=== PATIENT | female | born 1960 | race Caucasian/White ===

== ENCOUNTER 2019-08-24 21:39 | Inpatient (IN) | payer OTHER, SELFPAY ==
--- NOTE | ~2019-08-24 | XR_ITS ---
EXAMINATION: XR chest 2V 08/24/2019 22:38 INDICATION: Cough and shortness of breath PROCEDURE: 2 view chest COMPARISON: 01/16/2015 FINDINGS: The lungs are clear. The cardiomediastinal silhouette is within normal limits. There are no pleural effusions. There is no pneumothorax suspected. IMPRESSION: 1: NO ACUTE CARDIOPULMONARY DISEASE. Reviewed, dictated and finalized at location A. RITY CONSULTANT
--- NOTE | ~2019-08-24 | CT_ITS ---
EXAMINATION: CTA chest PE protocol DATE: 08/25/2019 16:01 GOVERNMENT CONTRACTS MANAGER INDICATION: Shortness of breath and tachycardia TECHNIQUE: Computed tomographic angiography (CTA) of the chest was performed with 100 mL Omnipaque-35 0 intravenous contrast. The dose-length product was 378.46 mGy-cm. Maximum intensity projection 3D-re constructions of the aorta and other arteries were constructed by the technologist on a separate work station. Automated exposure control and iterative reconstruction technique were employed. COMPARISON: None. FINDINGS: Study is technically adequate without evidence for pulmonary embolism. No significant pleur al or pericardial effusion. No thoracic lymphadenopathy. Heart size is normal. There is atheroscleros is of the aorta without evidence for aneurysm or dissection. No thoracic lymphadenopathy. Fatty infil tration of the liver. Calcified granulomas of the spleen. Moderate-severe emphysema. No endobronchial lesions. No focal airspace consolidation. No pneumothorax . 4 mm left lower lobe nodule with surrounding groundglass opacification, likely benign. IMPRESSION: 1. No evidence for pulmonary embolism. No acute cardiopulmonary disease. 2: 4 mm left lower lobe nodule with adjacent groundglass opacification, likely benign. Follow-up CT i n 12 months recommended. 3: Moderate-severe emphysema. Reviewed, dictated and finalized at location A. RNMENT CONTRACTS MANAGER IMPRESSION: 1. No evidence for pulmonary embolism. No acute cardiopulmonary disease. 2: 4 mm left lower lobe nodule with adjacent groundglass opacification, likely benign. Follow-up CT in 12 months recommended. 3: Moderate-severe emphysema.
[2019-08-24 21:44] VITALS: BP 214/118; PULSE 123; RESP 22; TEMP 36.6; O2SAT 96
--- NOTE | 2019-08-24 21:44 | ED.SOB ---
HPI - SOB/Dyspnea General Chief Complaint: Shortness of Breath/Dyspnea Stated Complaint: SOB Time Seen by Provider: 08/24/19 21:43 Source: patient Mode of arrival: ambulatory Limitations: no limitations History of Present Illness HPI Narrative: The pt is a 59 y/o female who presents to the ED c/o SOB onset this morning. Pt states that she has been experiencing some flu-like symptoms, and she went to urgent care the other day. Pt states that she was prescribed Tamiflu, Azithromycin, and Prednisone. Pt states that she started taking the Prednisone one day ago, and thinks she may be having an allergic reaction to that. Pt states that she has been experiencing cough and rhinorrhea. Pt denies fever and CP. Pt notes that she does not take blood thinners. She also denies recent travel. Pt notes that she takes medication for HLD. MD elicited complaint: shortness of breath Pertinent past history: COPD and asthma Context: recent illness (Prescribed Prednisone at urgent care for flu-like symptoms) Known history of: COPD and asthma Associated symptoms: cough and other (Rhinorrhea) Related Data Home Medications Medication Instructions Recorded Confirmed fluticasone furoate 200 1 inhalation INHALATION DAILY 07/12/19 mcg-vilanterol 25 mcg/dose inhalation powder lovastatin 20 mg tablet 40 mg PO QPM tablet 07/12/19 Allergies Allergy/AdvReac Type Severity Reaction Status Date / Time Cephalosporins Allergy Severe RED, Unverified 08/24/19 23:15 FLUSHED, BURNING SKIN Penicillins Allergy Unknown Unknown Verified 08/24/19 22:59 Sulfa (Sulfonamide Allergy Unknown Unknown Verified 08/24/19 22:59 Antibiotics) Review of Systems Review of Systems: All systems reviewed & are unremarkable except as noted in HPI and below Constitutional: Constitutional: Denies fever(s) ENT: Reports nasal discharge (Rhinorrhea) Cardiovascular: Cardiovascular: Denies chest pain Respiratory: Respiratory: Reports cough and Reports dyspnea PMFSH Past Medical History Medical History (Updated 08/24/19 @ 23:31 by Forrest Rogers MD) Asthma Bronchitis COPD (chronic obstructive pulmonary disease) GERD (gastroesophageal reflux disease) HLD (hyperlipidemia) UTI (urinary tract infection) Surgical History Surgical History (Updated 08/24/19 @ 21:53 by Smooth Choi) H/O dilation and curettage H/O tubal ligation H/O: hysterectomy Hx of tonsillectomy Family History Family History (Updated 03/15/17 @ 14:18 by DOCTOR UNKNOWN) Other Family history of coronary artery disease Family history of type 2 diabetes mellitus Hypertension Social History Social History Smoking status: Former smoker Second hand tobacco smoke exposure: No Smoking end date: 07/04/14 Alcohol intake: current Comments PCP: Dr. Cleary Exam Const: General: cooperative, healthy appearing, comfortable, well developed, alert, awake and in distress mild; No confusion Orientation/consciousness: oriented to person, oriented to place, oriented to time, patient oriented x3 and No confusion Limitations: no limitations Resp: Effort & Inspection: respiratory distress (Mild) Auscultation: rhonchi throughout and wheezes throughout Cardio: Rate: tachycardic Rhythm: regular rhythm GI: Inspection: normal to inspection GI Palp: No abdominal tenderness, Yes Soft to palpation, No Tenderness to palpation present (GI), No Guarding due to palpation present (GI), No Rigid due to palpation and No Rebound tenderness present Auscultation: normal bowel sounds Skin: General skin exam: normal color, no rashes or lesions noted, elasticity normal and turgor normal Neuro: General: oriented to person, oriented to place, oriented to time, patient oriented x3, moves all extremities, no focal motor deficits and No confusion Speech: No Abnormal speech present Sensory Exam: No Sensory deficit (Neuro) Extrem: General: normal to inspection, full ROM and capi
--- NOTE | 2019-08-24 21:56 | ECG_ITS ---
Measurements Intervals [place] Rate: 49 P: 68 [place]: 165 QRS: 35 QRSD: 109 T: 63 QT: 345 QTc: 314 Interpretive Statements SINUS RHYTHM POSSIBLE LEFT ATRIAL ENLARGEMENT BASELINE ARTIFACT- I, III, AVL BORDERLINE ECG Electronically Signed On 08-25-2019 8:38:45 REAL ESTATE MANAGER by Héctor Kelly D.O.
[2019-08-24] MEDS: methylPREDNISolone SOD SUCC 125 MG VIAL IV PUSH (22:04)
[2019-08-24 22:12] LABS: Basophils Percent Auto 0.1 % (0.2-1.2); Hemoglobin 13.8 g/dL (12.0-15.0); Immature Granulocyte Absolute 0.12 K/mm3 (0.00-0.031); Immature Granulocyte Percent A 1.3 % (0-0.5); Lymphocytes Absolute Auto 2.67 K/mm3 (0.9-3.2); Mean Corpuscular HGB Conc 31.4 g/dl (32-36); Mean Corpuscular Hemoglobin 29.4 pg (26-34); Mean Corpuscular Volume 93.6 fl (80-100); Mean Platelet Volume 10.9 fl (7.4-10.4); Monocytes Absolute Auto 0.6 K/mm3 (0.1-0.6); Monocytes Percent Auto 6.1 % (2.6-8.5); Neutrophils Absolute Auto 6.2 K/mm3 (1.3-6.7); Neutrophils Percent Auto 64.5 % (45.5-73.1); Platelet Count Result 209 k/mm3 (150-375); Red Cell Distribution Width 13.2 % (11.5-14.5); White Blood Count 9.6 K/mm3 (4.5-10.0)
[2019-08-24] MEDS: ALBUTEROL SULFATE NEB 2.5 MG/0.5 ML INH 5 MG INHALATION (22:12)
[2019-08-24] MEDS: IPRATROPIUM BR 0.02% INH SOLN 0.5 MG/2.5 ML VIAL INHALATION ×2 (22:12→23:28)
[2019-08-24 22:13] VITALS: PULSE 98; RESP 22
[2019-08-24 22:25] LABS: Carboxyhemoglobin 0.6 % THb (0-2.0); Fractional Inspired Oxygen 21 %; HCO3 ABG 25.1 mEq/l (22.0-26.0); Modified Allen's Test Pass; Oxygen Content ABG 18.7 %vol (16.0-22.0); Oxygen Saturation ABG 95.7 % (95.0-100.0); Oxyhemoglobin 94.8 % THb (90.0-100.0); PCO2 ABG 38.5 mmHg (35.0-45.0); PO2 ABG 76.6 mmHg (80.0-100.0); PO2 FiO2 Ratio Arterial Blood 3.65 %; Reduced Hemoglobin 4.6 %THb (0-5.0); Site Drawn RIGHT RADIAL; pH ABG 7.432 (7.350-7.450)
[2019-08-24 22:26] LABS: Device ROOM AIR
[2019-08-24 22:26] LABS: Blood Urea Nitrogen 26 mg/dL (7-17); Calcium 9.1 mg/dL (8.4-10.2); Carbon Dioxide 26 mmol/L (22-30); Chloride 103 mmol/L (98-107); Estimated Glomerular Filt Rate > 60; Glucose 109 mg/dL (65-105); Potassium 4.3 mmol/L (3.4-5.0); Sodium 140 mmol/L (137-145)
[2019-08-24 22:31] VITALS: BP 164/99; PULSE 106; RESP 20; O2SAT 100
[2019-08-24 22:36] LABS: Troponin I < 0.012 ng/mL (0.000-0.034)
[2019-08-24 23:20] VITALS: PULSE 92; RESP 14
[2019-08-24] MEDS: ALBUTEROL SULFATE NEB 2.5 MG/0.5 ML INH INHALATION (23:27)
[2019-08-24 23:35] VITALS: PULSE 94; RESP 16
[2019-08-25] VITALS (20 sets, daily range): BP systolic 141–184; BP diastolic 72–90; PULSE 88–132; RESP 18–26; TEMP 36.4–36.9; O2SAT 80–100; BMI 28.3
--- NOTE | 2019-08-25 00:44 | ADMGEN ---
This patient, Mariely Mccullough, was admitted to [facility] S[facility] Room 301-01. Patient/family oriented to hospital policies and general routines including ID bracelet, bed and alarms, visiting hours, pain management, procedures, bathroom and other care routines, personal items, smoking policy, room service/diet, and visiting hours. Valuables list has been completed. Information on how to activate the Rapid Response Team has been discussed. Patient/Family are encouraged to report perceived risks to care and to ask questions if they do not understand what they are told or what they should do.
[2019-08-25] MEDS: LACTATED RINGERS 1,000 ML 125 ML IV CONT (01:26)
[2019-08-25] MEDS: ALBUTEROL SULFATE NEB 2.5 MG/0.5 ML INH 5 MG INHALATION (02:16)
[2019-08-25] MEDS: IPRATROPIUM BR 0.02% INH SOLN 0.5 MG/2.5 ML VIAL INHALATION ×3 (02:16→20:47)
[2019-08-25] MEDS: methylPREDNISolone SOD SUCC 125 MG VIAL 60 MG IV PUSH ×3 (05:42→21:25)
--- NOTE | 2019-08-25 05:57 | PM.IMHP ---
H&P: HPI History of Present Illness Chief complaint: Shortness of breath Narrative: Date and time of patient contact 08/25/2019 at 5:15 a.m. Mariely Mccullough is a 59 year old female with a past medical history of anxiety, asthma and bronchitis who presented to the ER with increasing shortness of breath. Patient began having symptoms on Tuesday (4 days ago). She is having a nonproductive cough, increased shortness of breath and nasal congestion/rhinorrhea. She went to urgent care on the and received a prescription for prednisone 60 mg daily, azithromycin and Tamiflu. She had a flu swab performed at urgent care which was negative for influenza and had a repeat flu swab here that was also negative. She reports significant postnasal drip with a sore throat. Cough is for the most part nonproductive. She was taking her medications as prescribed but developed increased shortness of breath just prior to coming to the ER. She was afraid that she may have had an allergic reaction to the prednisone that she received at urgent care. She reported that her rescue inhaler actually burned her throat. It did not seem to be helping her shortness of breath. Her shortness breath was significantly improved after she received nebulizer treatments and IV steroids in the ER. On the patient arrived to the ER she is markedly hypertensive and anxious. Her blood pressures on arrival were 214/118 but did improved to 164/89 prior to arriving on the medical floor. She denies a history of hypertension. Her reports that the patient has been under increased social stressors. The patient is currently working 6-7 days a week and is trying to care for her elderly mother. She also helps baby-sits her grandson 3 days a week. She was started on hydroxyzine by her primary care physician due to anxiety but the patient does not like to take the medication is she feels it makes her sleep all the time. She denies any nausea or vomiting. She has not had any orthopnea, lower extremity swelling, chest pain or palpitations. She denies any arthralgias, myalgias, fevers or chills. She reports that she has been told she has asthma/bronchitis prior primary care physician but she has never had any pulmonary function testing. The patient is a former smoker and smoked about a pack of cigarettes per day for 37 years prior to quitting. She does have shortness of breath pretty much on a daily basis. She usually uses her rescue inhaler anywhere from once every couple of days to once a week. 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 Source of information: The patient and her her bedside. Review of Systems Review of Systems: Narrative: Except as documented in the HPI, all other systems were reviewed and are negative. [facility], LAT[facility] Past Medical History Medical History (Updated 08/25/19 @ 06:25 by Pat Hummel DO) Asthma Bronchitis COPD (chronic obstructive pulmonary disease) GERD (gastroesophageal reflux disease) HLD (hyperlipidemia) UTI (urinary tract infection) Surgical History Surgical History (Updated 08/24/19 @ 21:53 by Smooth Choi) H/O dilation and curettage H/O tubal ligation H/O: hysterectomy Hx of tonsillectomy Family History Family History (Updated 08/25/19 @ 06:12 by Pat Hummel DO) Sibling Coronary artery disease Sibling Hypertension Diabetes mellitus Her sister is in a mcc and has had limb amputation and other complications of diabetes. Father Hypertension Mother No problems noted. Social History Social History (Updated 08/25/19 @ 06:24 by Pat Hummel DO) Social History: Primary care physician: Dr. Deborah Cleary Code status: Full code Smoking packs per day: 1 Smoking cigarettes per day: 20.0 Years smoked: 37 Smoking pack-years: 37.00 Smoking status: Former smoker Tobacco type: cigarettes Second
--- NOTE | 2019-08-25 08:22 | ECG_ITS ---
Measurements Intervals [place] Rate: 105 P: 66 [place]: 164 QRS: 79 QRSD: 104 T: 53 QT: 332 QTc: 440 Interpretive Statements SINUS TACHYCARDIA BASELINE ARTIFACT- I, II, III, AVF, V4 ABNORMAL ECG Electronically Signed On 08-25-2019 8:40:07 BUDGET CONSULTANT by Héctor Kelly D.O.
--- NOTE | 2019-08-25 08:54 | PM.IMPN ---
Progress Note: A&P Assessment and Plan (1) Acute exacerbation of chronic obstructive airways disease: Code(s): J44.1 - Chronic obstructive pulmonary disease with (acute) exacerbation Status: Acute Assessment and Plan: Patient with a 37 pack per year smoking history but has not been diagnosed with COPD. Currently on Tamiflu but influenza swabs were negative here. She has distant BS but no wheezing. Symptoms worsen with exertion. Probably COPD exacerbation but will consider the etiology such as veno thromboembolic disease. Check CTA of the chest. Also check echocardiogram. Continue Solu-Medrol. Will continue nebulizer treatments for change to Xopenex. (2) Acute upper respiratory infection: Code(s): J06.9 - Acute upper respiratory infection, unspecified Status: Acute Assessment and Plan: Likely viral in nature. Continue supportive care. (3) Elevated blood-pressure reading without diagnosis of hypertension: Code(s): R03.0 - Elevated blood-pressure reading, without diagnosis of hypertension Status: Acute Assessment and Plan: Blood pressure 214/118 on admission in a patient who has not been diagnosed with hypertension. Hydralazine IV available as needed but has not received any medication for her blood pressure. Blood pressure has improved to 141/75. Will hold on antihypertensive medications and continue to monitor for now. (4) Anxiety: Code(s): F41.9 - Anxiety disorder, unspecified Status: Acute Assessment and Plan: Patient would benefit from an SSRI to help treat her anxiety. She was on a medication in the past but made her to somnolent. She does not recall the name of the medication. Will order Xanax as needed. (5) Sinus tachycardia: Code(s): R00.0 - Tachycardia, unspecified Status: Acute Assessment and Plan: Called due to heart rate of 140s with exertion. EKG showing sinus tachycardia. Telemetry reviewed and again showing sinus tachycardia but no evidence of dysrhythmias. CTA ordered. TSH normal in May. Continue tele Subjective Date/time seen: 08/25/19 08:54 Interval history: 59yo female here for COPD exacerbation. Assuming care. Chart reviewed. His case discussed with automated manufacturing instructor. Called the room because patient was recently short of breath after walking to the bathroom. This is being progressively worsening prior to admission. She feels ?scared? due to the shortness of breath. No chest pain. She denies any cough or wheezing today. Says her breathing overall is better. She was wheezing yesterday. No calf pain but does have MARIN horses in the calves that seemed to have worsened over the past month. Exam Narrative: Exam Narrative: 132 141/75 Gen -no acute respiratory distress sitting up in bed ordering her breakfast Chest -distant breath sounds. Wheezing. No conversational dyspnea. CV -tachycardic but regular. Distant heart sounds. No obvious murmurs. Tele showing sinus tachycardia Abd -soft. Nontender. Nondistended. Positive bowel sounds. Ext -trace edema. Neuro - Alert and oriented, speech is clear, no facial asymmetry Psych -anxious appearing at times. Becomes more distressed when discussing recent stressors in her life. Objective Data Vital Signs Vital Signs: Vital Signs - 24 hr 08/24/19 21:44 08/24/19 22:13 08/24/19 22:31 Temperature 97.9 F Pulse Rate 123 H 98 106 H Respiratory Rate 22 H 22 H 20 Blood Pressure 214/118 H 164/99 H Pulse Oximetry 96 100 08/24/19 23:20 08/24/19 23:35 08/25/19 00:25 Temperature Pulse Rate 92 94 88 Respiratory Rate 14 16 20 Blood Pressure 164/89 H Pulse Oximetry 99 08/25/19 00:30 08/25/19 02:16 08/25/19 02:27 Temperature 98.2 F Pulse Rate 91 89 92 Respiratory Rate 18 20 20 Blood Pressure 184/84 H Pulse Oximetry 94 08/25/19 04:00 08/25/19 06:00 08/25/19 07:54 Temperature 98.1 F Pulse Rate 113 H 103 H 10
[2019-08-25] MEDS: ENOXAPARIN 40 MG/0.4 ML SYRINGE SUB-Q (09:31)
[2019-08-25] MEDS: PANTOPRAZOLE SOD SESQUIHYDRATE 20 MG TAB PO (09:32)
[2019-08-25] MEDS: LORAZEPAM INJ 2 MG/ML VIAL 0.5 MG IV PUSH (11:16)
[2019-08-25] MEDS: LOVASTATIN 20 MG TABLET 40 MG PO ×2 (16:32→16:38)
[2019-08-26] VITALS (17 sets, daily range): BP systolic 139–154; BP diastolic 74–78; PULSE 88–133; RESP 18–26; TEMP 36.6–37.1; O2SAT 91–95
[2019-08-26] MEDS: IPRATROPIUM BR 0.02% INH SOLN 0.5 MG/2.5 ML VIAL INHALATION ×4 (03:15→19:41)
[2019-08-26 06:09] LABS: Hematocrit 39.3 % (37.0-47.0); Hemoglobin 12.7 g/dL (12.0-15.0); Mean Corpuscular HGB Conc 32.3 g/dl (32-36); Mean Corpuscular Hemoglobin 29.7 pg (26-34); Mean Platelet Volume 10.9 fl (7.4-10.4); Platelet Count Result 194 k/mm3 (150-375); Red Blood Count 4.27 M/mm3 (4.2-5.4); Red Cell Distribution Width 13.5 % (11.5-14.5); White Blood Count 13.1 K/mm3 (4.5-10.0)
[2019-08-26 06:24] LABS: Blood Urea Nitrogen 27 mg/dL (7-17); Calcium 8.8 mg/dL (8.4-10.2); Carbon Dioxide 27 mmol/L (22-30); Chloride 101 mmol/L (98-107); Estimated CRCL calculation 77 ml/min; Estimated Glomerular Filt Rate > 60; Glucose 157 mg/dL (65-105); Potassium 4.1 mmol/L (3.4-5.0); Sodium 137 mmol/L (137-145)
[2019-08-26] MEDS: methylPREDNISolone SOD SUCC 125 MG VIAL 60 MG IV PUSH ×2 (07:12→14:37)
--- NOTE | 2019-08-26 08:25 | PM.IMPN ---
Progress Note: A&P Assessment and Plan (1) Acute exacerbation of chronic obstructive airways disease: Code(s): J44.1 - Chronic obstructive pulmonary disease with (acute) exacerbation Status: Acute Assessment and Plan: Patient with a 37 pack per year smoking history but has not been diagnosed with COPD. Currently on Tamiflu but influenza swabs were negative here. CTA showing no pulmonary emboli but did show a moderate to severe emphysema. There is also a 4 mm benign-appearing left lower lobe nodule. She has distant BS but no wheezing (but just had a treatment). Symptoms worsen with exertion. Echocardiogram pending. Continue Solu-Medrol and neb treatments. Check autoimmune markers. Will continue Symbicort. Pulmonary consult. (2) Acute upper respiratory infection: Code(s): J06.9 - Acute upper respiratory infection, unspecified Status: Acute Assessment and Plan: Likely viral in nature. CTA showing no acute cardiopulmonary disease. Continue supportive care. (3) Elevated blood-pressure reading without diagnosis of hypertension: Code(s): R03.0 - Elevated blood-pressure reading, without diagnosis of hypertension Status: Acute Assessment and Plan: Blood pressure 214/118 on admission in a patient who has not been diagnosed with hypertension. Hydralazine IV available as needed but has not received any medication for her blood pressure. Systolic blood pressure running in the 140-150 range mostly. Probably related to stress and steroids. Will continue to monitor for now. (4) Anxiety: Code(s): F41.9 - Anxiety disorder, unspecified Status: Acute Assessment and Plan: Patient would benefit from an SSRI to help treat her anxiety. She was on a medication in the past but made her to somnolent but does not recall the name of the medication. Xanax available as needed but she has not requested this. She is agreeable to start Lexapro which will start this morning. (5) Sinus tachycardia: Code(s): R00.0 - Tachycardia, unspecified Status: Acute Assessment and Plan: EKG showing sinus tachycardia. Telemetry reviewed and showing sinus tachycardia but no evidence of dysrhythmias. CTA showing no PE. TSH normal in May. Patient still tachycardic with exertion but improved overall. Subjective Date/time seen: 08/26/19 08:25 Interval history: 59yo female here for COPD exacerbation. Patient denies shortness of breath at rest. She still having significant dyspnea on exertion. No chest pain at rest but did feel ?tight? in the chest when she is ambulating. She also has wheezing at times. Ativan did help with her anxiety symptoms. Exam Narrative: Exam Narrative: 154/74 101 Gen -no acute distress sitting up in bed talking on the telephone. Chest -distant breath sounds with only a few scattered wheezes (she had a recent neb treatment) CV -mildly tachycardic but regular. Abd -soft. Nontender. Nondistended. Positive bowel sounds. Ext -no pedal edema. Skin -warm and tachy Psych -depressed and anxious mood. Patient becomes tearful at times Objective Data Vital Signs Vital Signs: Vital Signs - 24 hr 08/25/19 08:36 08/25/19 12:00 08/25/19 13:48 Temperature Pulse Rate 109 H 99 120 H Respiratory Rate 20 20 Blood Pressure Pulse Oximetry 94 08/25/19 13:50 08/25/19 13:57 08/25/19 15:16 Temperature 98.5 F Pulse Rate 120 H 116 H 120 H Respiratory Rate 20 20 18 Blood Pressure 153/90 H Pulse Oximetry 94 96 08/25/19 16:00 08/25/19 20:00 08/25/19 20:47 Temperature Pulse Rate 117 H 112 H 115 H Respiratory Rate 20 Blood Pressure Pulse Oximetry 08/25/19 21:00 08/25/19 21:50 08/26/19 00:00 Temperature 97.6 F Pulse Rate 112 H 108 H 96 Respiratory Rate 20 18 Blood Pressure 149/72 H Pulse Oximetry 100 08/26/19 03:17 08/26/19 03:27 08/26/19 04:00 Temperature Pulse Rate 97 96 9
[2019-08-26] MEDS: PANTOPRAZOLE SOD SESQUIHYDRATE 20 MG TAB PO (10:02)
[2019-08-26] MEDS: ENOXAPARIN 40 MG/0.4 ML SYRINGE SUB-Q (10:02)
[2019-08-26] MEDS: ESCITALOPRAM OXALATE 5 MG TABLET PO (14:35)
--- NOTE | 2019-08-26 23:19 | PM.CNPUL ---
Assessment and Plan Assessment and plan (1) COPD exacerbation: Code(s): J44.1 - Chronic obstructive pulmonary disease with (acute) exacerbation Status: Acute Assessment and Plan: - agree with current nebulize regimen of levalbuterol/iprtropium Q6h - continue systemic steroids for 5 days then discontinue without taper - needs outpatient PFT - would likely benefit from addition of LAMA to home ICS/LABA therapy - PT/OT - can go back to work in a week. History of Present Illness History of Present Illness Consult date: 08/26/19 Chief complaint: Shortness of breath Narrative: 59 y/o prison smoker who presents with URI symptoms which later progressed to COPD exacerbtion. She denies productive cough , fever, chills or night sweats. She was treated with prednisone, tamiflu and azithromycin as outpatient with no improvement. She is now on systemic steroids and nebulzed bronchodilators and is starting to feel better. Review of Systems Review of Systems: All systems reviewed & are unremarkable except as noted in HPI and below PMFSH Past Medical History Medical History (Updated 08/26/19 @ 23:26 by Susan Kay MD) Asthma Bronchitis COPD (chronic obstructive pulmonary disease) GERD (gastroesophageal reflux disease) HLD (hyperlipidemia) UTI (urinary tract infection) Surgical History Surgical History (Updated 08/24/19 @ 21:53 by Smooth Choi) H/O dilation and curettage H/O tubal ligation H/O: hysterectomy Hx of tonsillectomy Family History Family History (Updated 08/25/19 @ 06:12 by Pat Hummel DO) Sibling Coronary artery disease Sibling Hypertension Diabetes mellitus Her sister is in a assisted and has had limb amputation and other complications of diabetes. Father Hypertension Mother No problems noted. Social History Social History (Updated 08/25/19 @ 06:24 by Pat Hummel DO) Social History: Primary care physician: Dr. Deborah Cleary Code status: Full code Smoking packs per day: 1 Smoking cigarettes per day: 20.0 Years smoked: 37 Smoking pack-years: 37.00 Smoking status: Former smoker Tobacco type: cigarettes Second hand tobacco smoke exposure: No Smoking end date: 04/03/15 Alcohol intake: current Drinks per week: 0 Alcohol use details: The patient drinks alcohol rarely and small amounts Substance use: former Substance use type: marijuana Living arrangements: with family Additional living arrangements comments: The patient her have been together since the 1980s but had not been for approximately 20 years. 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 Gender identity (if verbalized by the patient): Female Spiritual care concerns: No Agree to blood products: Yes Meds Home Medications and Allergies Home Medications Medication Instructions Recorded Confirmed Type hydroxyzine HCl 25 mg tablet 25 mg PO QID PRN #90 tablet 05/07/19 08/25/19 Rx omeprazole 20 mg capsule,delayed 20 mg PO DAILY #90 cap 06/05/19 08/25/19 Rx release albuterol sulfate 90 mcg/actuation 2 puff INHALATION DAILY PRN #8.5 gm 07/12/19 08/25/19 Rx aerosol inhaler fluticasone furoate 200 1 inhalation INHALATION DAILY 07/12/19 08/25/19 History mcg-vilanterol 25 mcg/dose inhalation powder lovastatin 20 mg tablet 40 mg PO QPM tablet 07/12/19 08/25/19 History azithromycin 250 mg PO DAILY 08/25/19 08/25/19 History cholecalciferol (vitamin D3) 25 mcg PO DAILY 08/25/19 08/25/19 History [Vitamin D3] oseltamivir 75 mg PO Q12H 08/25/19 08/25/19 History Allergies Allergy/AdvReac Type Severity Reaction Status Date / Time Cephalosporins Allergy Severe RED, Verified 08/25/19 05:35 FLUSHED, BURNING SKIN Penicillins Allergy Unknown Unknown Verified 08/24/19 22:59 Sulfa (Sulfonamide Allergy Unknown Un
[2019-08-27] VITALS (19 sets, daily range): BP systolic 124–160; BP diastolic 74–90; PULSE 85–114; RESP 18–20; TEMP 36.3–37.1; O2SAT 94–95
--- NOTE | 2019-08-27 | ECHO_ITS ---
Patient Info Name: Mariely Mccullough Age: 59 years : 1960 Gender: Female Ht: 65 in Wt: 170 lbs BSA: 1.90 m2 HR: 110 bpm BP: 152 / 76 mmHg Heart Rhythm: Tachycardia Technical Quality: Fair Exam Date: 08/27/2019 9:35 AM Exam Location: [facility] Patient Status: Inpatient Admit Date: 08/26/2019 Staff Ordering Physician: Bello Hall MD Supervisor [employer]: Aamir Oseguera RDCS Attending Provider: Bello Hall MD Exam Type: CA echo dop color flow w con Study Info Indications R06.02 - Shortness of breath Complete two-dimensional, color flow and Doppler transthoracic echocardiogram is performed with contrast to opacify the left ventrical and to improve the deliniation of the left ventrical endocarial boarders. Contrast/Agitated Saline Contrast/Ag. Saline: Definity Amount: 2.00 ml Administered By: Macho Thrasher RN Existing IV Access: Yes History/Risk Factors COPD exacerbation; SOB, RODRIGUEZ, tachycardia, HTN. Summary 1. Left ventricular chamber dimension is normal. 2. Left ventricular systolic function is hyperdynamic, estimated at >70%. 3. Definity contrast administered improved wall motion interpretation. 4. There is mildly increased left ventricular wall thickness. 5. The left ventricular diastolic function is grade I diastolic dysfunction. 6. E.e' 16 is elevated. 7. The aortic valve is not well visualized. 8. There is mild aortic valve stenosis based on a peak velocity of 216.81 cm/s, mean gradient of 10 mmHg, and aortic valve area of 1.61 cm2. Left Ventricle Definity contrast administered improved wall motion interpretation. E.e' 16 is elevated. Left ventricular chamber dimension is normal. Left ventricular systolic function is hyperdynamic, estimated at >70%. There is mildly increased left ventricular wall thickness. The left ventricular diastolic function is grade I diastolic dysfunction. Right Ventricle Right ventricular chamber dimension is normal. Right ventricular systolic function is normal. Left Atria Left atrial chamber dimension is normal. Right Atria Right atrial chamber dimension is normal. Aortic Valve There is mild aortic valve stenosis based on a peak velocity of 216.81 cm/s, mean gradient of 10 mmHg, and aortic valve area of 1.61 cm2. Cannot determine number of aortic valve leaflets. The aortic valve is not well visualized. There is no aortic valve regurgitation. Pulmonic Valve There is no pulmonic regurgitation. Mitral Valve There is no mitral valve stenosis. There is no mitral valve regurgitation. Tricuspid Valve There is no tricuspid valve regurgitation. Pericardium/Pleural There is no pericardial effusion. Inferior Vena Cava Normal inferior vena cava with >50% collapse upon inspiration consistent with normal right atrial pressure, 5 mmHg. Aorta The aortic root size at the sinus of Valsalva is normal. Left Ventricular Outflow Tract Name Value Normal LVOT 2D LVOT Diameter 1.79 cm LVOT Doppler LVOT Peak Gradient 8 mmHg LVOT Mean Gradient
[2019-08-27] MEDS: IPRATROPIUM BR 0.02% INH SOLN 0.5 MG/2.5 ML VIAL INHALATION ×4 (01:36→20:43)
[2019-08-27] MEDS: methylPREDNISolone SOD SUCC 125 MG VIAL 60 MG IV PUSH ×4 (03:23→22:02)
[2019-08-27] MEDS: PANTOPRAZOLE SOD SESQUIHYDRATE 20 MG TAB PO (08:09)
[2019-08-27] MEDS: ESCITALOPRAM OXALATE 5 MG TABLET PO (08:09)
[2019-08-27] MEDS: ENOXAPARIN 40 MG/0.4 ML SYRINGE SUB-Q (08:09)
--- NOTE | 2019-08-27 09:20 | PM.IMPN ---
Progress Note: A&P Assessment and Plan (1) Chest pain: Code(s): R07.9 - Chest pain, unspecified Status: Acute Assessment and Plan: Patient having chest tightness still. Mostly with exertion. Suspect related to the COPD exacerbation. Echo still pending. Will repeat EKG and repeat Trop. If all negative findings, then consider outpatient stress test once she has recovered from the COPD flare. Add ASA. (2) Acute exacerbation of chronic obstructive airways disease: Code(s): J44.1 - Chronic obstructive pulmonary disease with (acute) exacerbation Status: Acute Assessment and Plan: Patient with a 37 pack per year smoking history but has not been diagnosed with COPD. Currently on Tamiflu but influenza swabs were negative here. CTA showing no pulmonary emboli but did show a moderate to severe emphysema. There is also a 4 mm benign-appearing left lower lobe nodule and will need follow up CT scan in 12 months. Symptoms better overall. Echocardiogram pending. Continue Solu-Medrol and neb treatments. Will continue Symbicort. Appreciate Pulmonary input. (3) Acute upper respiratory infection: Code(s): J06.9 - Acute upper respiratory infection, unspecified Status: Acute Assessment and Plan: Likely viral in nature. CTA showing no acute cardiopulmonary disease. Continue supportive care. (4) Elevated blood-pressure reading without diagnosis of hypertension: Code(s): R03.0 - Elevated blood-pressure reading, without diagnosis of hypertension Status: Acute Assessment and Plan: Blood pressure 214/118 on admission in a patient who has not been diagnosed with hypertension. Hydralazine IV available as needed but has not received any medication for her blood pressure. Blood pressure still running high. Probably related to stress and steroids. Will add Cozaar. Will continue to monitor. (5) Anxiety: Code(s): F41.9 - Anxiety disorder, unspecified Status: Acute Assessment and Plan: Patient would benefit from an SSRI to help treat her anxiety. She was on a medication in the past but made her to somnolent but does not recall the name of the medication. Xanax available as needed and has only requested 1 dose. She is agreeable to start Lexapro which was started yesterday. Mood reasonable today. continue to monitor. (6) Sinus tachycardia: Code(s): R00.0 - Tachycardia, unspecified Status: Acute Assessment and Plan: EKG showing sinus tachycardia. Telemetry reviewed and also showing sinus tachycardia but no evidence of dysrhythmias. CTA showing no PE. TSH normal in May. Tachycardia felt to be related to COPD exacerbation and probably anxiety. Improving overall. Subjective Date/time seen: 08/27/19 09:20 Interval history: 59yo female here for COPD exacerbation. Patient complains of chest ?tightness? with exertion. No radiation to the chest tightness. Her cough is productive now. She also complains of sore throat. No nausea. Slept well last night. Her dyspnea on exertion is improved. Exam Narrative: Exam Narrative: 160/83 88 Gen -no acute distress lying semi recumbent in bed HEENT -NC/AT. Moist mucous membranes. Oropharynx is poorly visualized. Neck -no dominant adenopathy but tenderness in the submandibular area and the midline of the neck. Chest -few basilar rhonchi otherwise distant breath sounds. No wheezing. CV -regular rate and rhythm. S1-S2. Telemetry showing occasional sinus tachycardia. Abd -soft. Nontender. Nondistended. Positive bowel sounds. Ext -no pedal edema. 2+ PT pulses bilaterally. Skin -mildly diaphoretic. Psych -patient less anxious today. Objective Data Vital Signs Vital Signs: Vital Signs - 24 hr 08/26/19 12:00 08/26/19 13:41 08/26/19 13:53 Temperature Pulse Rate 101 H 114 H 124 H Respiratory Rate 24 H 24 H Blood Pressure Pulse Oximetry 08/26/19
--- NOTE | 2019-08-27 09:47 | ECG_ITS ---
Measurements Intervals [place] Rate: 95 P: 73 MT: 156 QRS: 62 QRSD: 89 T: 46 QT: 335 QTc: 422 Interpretive Statements SINUS RHYTHM POSSIBLE LEFT ATRIAL ENLARGEMENT LOW QRS VOLTAGE IN PRECORDIAL LEADS BORDERLINE ECG Electronically Signed On 08-27-2019 13:53:14 [employer] by Héctor Kelly D.O.
[2019-08-27] MEDS: PERFLUTREN LIPID MICROSPHERES 1.5 ML VIAL DILUTED TO 10 ML TOTAL VOLUME IV PUSH (10:04)
[2019-08-27 10:37] LABS: Troponin I < 0.012 ng/mL (0.000-0.034)
[2019-08-27] MEDS: LOSARTAN POTASSIUM 25 MG TABLET PO (13:24)
[2019-08-27] MEDS: LOVASTATIN 20 MG TABLET 40 MG PO (17:00)
--- NOTE | 2019-08-27 21:02 | PM.PNPUL ---
Progress Note: A&P Assessment and Plan (1) COPD exacerbation: Code(s): J44.1 - Chronic obstructive pulmonary disease with (acute) exacerbation Status: Acute Assessment and Plan: - agree with current nebulize regimen of levalbuterol/iprtropium Q6h - continue systemic steroids for 5 days then discontinue without taper - needs outpatient PFT - would likely benefit from addition of LAMA to home ICS/LABA therapy - PT/OT - can go back to work in a week. - wean O2 - echo results - CT 12 months to follow up 4 mm ground glass nodule in the LLL Subjective Date/time seen: 08/27/19 21:02 This 59 yo female is seen in follow up for COPD exacerbation. Her is at the bedside. She feels better today, Cornet is helping. She has been able to walk around the room, is now down to 1 L/min. Had an echo late today, results not yet back. yet. Review of Systems Review of Systems: All systems reviewed & are unremarkable except as noted in HPI and below Exam Const: General: comfortable and no acute distress HENMT: Mouth: Yes moist mucous membranes Neck: Neck: supple and no JVD Resp: Auscultation: no crackles, rhonchi (rare rhonchus right lung), no wheezes and diminished lung sounds Cardio: Rate: regular rate Rhythm: regular rhythm GI: Auscultation: normal bowel sounds Skin: General skin exam: normal color Psych: Mental Status: mental status grossly normal Affect: normal affect Objective Data Vital Signs Vital Signs: Vital Signs - 24 hr 08/26/19 21:55 08/27/19 00:00 08/27/19 01:36 Temperature 36.6 C Pulse Rate 98 93 95 Respiratory Rate 20 18 Blood Pressure 152/76 H Pulse Oximetry 95 08/27/19 01:46 08/27/19 04:00 08/27/19 06:00 Temperature 36.4 C L Pulse Rate 101 H 101 H 93 Respiratory Rate 18 20 Blood Pressure 160/83 H Pulse Oximetry 94 08/27/19 08:32 08/27/19 08:34 08/27/19 08:36 Temperature Pulse Rate 85 89 Respiratory Rate 18 Blood Pressure Pulse Oximetry 94 08/27/19 08:42 08/27/19 12:00 08/27/19 13:31 Temperature Pulse Rate 88 89 105 H Respiratory Rate 18 20 Blood Pressure Pulse Oximetry 08/27/19 13:40 08/27/19 14:30 08/27/19 16:14 Temperature 37.1 C Pulse Rate 102 H 114 H 88 Respiratory Rate 20 20 Blood Pressure 158/90 H Pulse Oximetry 95 08/27/19 20:00 08/27/19 20:44 08/27/19 20:48 Temperature Pulse Rate 89 92 92 Respiratory Rate 20 20 Blood Pressure Pulse Oximetry 94 08/27/19 20:54 Temperature Pulse Rate 91 Respiratory Rate 20 Blood Pressure Pulse Oximetry Intake/Output Intake/Output: Intake & Output 08/24/19 08/25/19 08/26/19 08/27/19 23:59 23:59 23:59 23:59 Intake Total 1580 1770 1530 Output Total 0 700 Balance 1580 1070 1530 Meds/Results Medications: Active Medications Generic Name Dose Route Start Last Admin Trade Name Freq PRN Reason Stop Dose Admin Albuterol 2.5 mg 08/26/19 23:16 Albuterol Sulf Neb 2.5mg/0.5ml INHALATION Q6HRT PRN sob Alprazolam 0.125 mg 08/25/19 09:07 08/26/19 10:06 Xanax PO 0.125 mg TID PRN Administration Anxiety Aspirin 81 mg 08/28/19 08:00 Aspirin Chewable PO DAILY@0800 [facility] Budesonide/Formoterol Fumarate 2 puff 08/25/19 08:00 08/27/19 20:43 Symbicort 160-4.5 Mcg (*Sp) Inhaler INHALATION 2 puff Q12HRT [facility] Administration Enoxaparin Sodium 40 mg 08/25/19 09:00 08/27/19 08:09 Lovenox SUB-Q 40 mg DAILY NIK Administration Escitalopram Oxalate 5 mg 08/26/19 10:05 08/27/19 08:09 Lexapro PO 5 mg QAM NIK Administration Hydralazine HCl 10 mg 08/25/19 05:55 Apresoline Hcl Inj IV PUSH Q4H PRN SBP greater than 160 Ipratropium Irvona 0.5 mg 08/25/19 02:00 08/27/19 20:43 Atrovent Neb INHALATION 0.5 mg Q6HRT NIK Administration Levalbuterol HCl 1.25 mg 08/25/19 14:00 08/27/19 20:43 Xopenex 1.25 Mg/0.5 Ml INHALATION 1.25 mg Q6HRT NIK
[2019-08-28] VITALS (9 sets, daily range): BP systolic 155–163; BP diastolic 76–93; PULSE 74–108; RESP 18–20; TEMP 36.4–37.1; O2SAT 91–93
[2019-08-28] MEDS: IPRATROPIUM BR 0.02% INH SOLN 0.5 MG/2.5 ML VIAL INHALATION ×2 (02:07→08:56)
[2019-08-28] MEDS: methylPREDNISolone SOD SUCC 125 MG VIAL 60 MG IV PUSH ×2 (05:19→14:06)
[2019-08-28 06:49] LABS: Hematocrit 38.5 % (37.0-47.0); Hemoglobin 12.4 g/dL (12.0-15.0); Mean Corpuscular HGB Conc 32.2 g/dl (32-36); Mean Corpuscular Hemoglobin 29.5 pg (26-34); Mean Corpuscular Volume 91.4 fl (80-100); Mean Platelet Volume 10.9 fl (7.4-10.4); Platelet Count Result 187 k/mm3 (150-375); Red Blood Count 4.21 M/mm3 (4.2-5.4); Red Cell Distribution Width 13.2 % (11.5-14.5); White Blood Count 7.4 K/mm3 (4.5-10.0)
[2019-08-28 07:00] LABS: Blood Urea Nitrogen 26 mg/dL (7-17); Calcium 8.4 mg/dL (8.4-10.2); Carbon Dioxide 31 mmol/L (22-30); Chloride 98 mmol/L (98-107); Estimated CRCL calculation 68 ml/min; Estimated Glomerular Filt Rate > 60; Glucose 154 mg/dL (65-105); Potassium 4.3 mmol/L (3.4-5.0); Sodium 136 mmol/L (137-145)
[2019-08-28] MEDS: ENOXAPARIN 40 MG/0.4 ML SYRINGE SUB-Q (10:05)
[2019-08-28] MEDS: LOSARTAN POTASSIUM 25 MG TABLET PO (10:05)
[2019-08-28] MEDS: ESCITALOPRAM OXALATE 5 MG TABLET PO (10:32)
[2019-08-28] MEDS: ASPIRIN 81 MG CHEWABLE TABLET PO (10:33)
[2019-08-28] MEDS: PANTOPRAZOLE SOD SESQUIHYDRATE 20 MG TAB PO (10:33)
--- NOTE | 2019-08-28 12:21 | PM.IMPN ---
Progress Note: A&P Assessment and Plan (1) Acute exacerbation of chronic obstructive airways disease: Code(s): J44.1 - Chronic obstructive pulmonary disease with (acute) exacerbation Status: Acute Assessment and Plan: Not previously diagnosed. Pulmonology consulted and appreciate input. Echocardiogram with EF greater than 70%, diastolic dysfunction grade 1 and no significant valvular disease. CTA chest with no pulmonary embolism, 4 mm left lower lobe nodule with recommendation for follow-up CT in 12 months and moderate to severe emphysema. Clinically has. Will discharge home today on oral prednisone along with Symbicort and rescue inhaler. (2) Chest pain: Qualifiers: Chest pain type: unspecified Qualified Code(s): R07.9 - Chest pain, unspecified Code(s): R07.9 - Chest pain, unspecified Status: Acute Assessment and Plan: Chest tightness has improved. Result of COPD exacerbation. Echocardiogram with results as noted above. Will continue low-dose ASA with blood pressure issues. (3) Acute upper respiratory infection: Code(s): J06.9 - Acute upper respiratory infection, unspecified Status: Acute Assessment and Plan: Likely viral in nature. CTA showing no acute cardiopulmonary disease. Continue supportive care. Influenza screen negative here. (4) Elevated blood-pressure reading without diagnosis of hypertension: Code(s): R03.0 - Elevated blood-pressure reading, without diagnosis of hypertension Status: Acute Assessment and Plan: Blood pressure 214/118 on admission. No history of hypertension. Blood pressure reviewed on 08/28/2019 still with some elevated readings. Stress and steroids may be contributing. Will continue losartan. Will need to follow-up primary physician. (5) Anxiety: Code(s): F41.9 - Anxiety disorder, unspecified Status: Acute Assessment and Plan: Significant anxiety. Lexapro started while here and will continue after discharge will need to follow-up primary physician. (6) Sinus tachycardia: Code(s): R00.0 - Tachycardia, unspecified Status: Acute Assessment and Plan: EKG showing sinus tachycardia. Result of COPD exacerbation and anxiety. No additional evaluation needed. (7) DVT prophylaxis: Code(s): Z29.9 - Encounter for prophylactic measures, unspecified Status: Acute Assessment and Plan: Lovenox. Time Spent With Patient Time with patient: 15 - 25 minutes Subjective Date/time seen: 08/28/19 12:21 Interval history: Date of Service: 08/28/2019. Admitted with COPD exacerbation. Has present. Feels better today. Does still get a little winded with walking but overall shortness of breath improved. Cough much better. No chest pain. No headache or dizziness. Would like to go home. Review of Systems Review of Systems: Narrative: Feeling better. Would like to go home. Constitutional: Constitutional: Denies chills and Denies fever(s) ENT: Reports system reviewed and no additional complaints, except as documented Cardiovascular: Cardiovascular: Denies chest pain Respiratory: Respiratory: Reports cough (Improved) and Reports dyspnea on exertion (Much improved) Gastrointestinal: Gastrointestinal: Denies abdominal pain, Denies nausea and Denies vomiting Genitourinary: Genitourinary: Reports no additional female genitourinary complaints Musculoskeletal: Musculoskeletal: Reports no additional musculoskeletal complaints Integumentary/Breasts: Skin/Breast: Denies rash Neurologic: Denies headache(s) Psychiatric: Psychiatric: Denies confusion and Denies depression Exam Narrative: Exam Narrative: Awake and alert. Const: General: no acute distress HENMT: Mouth: Yes moist mucous membranes Neck: Neck: supple Lymphatic: lymphadenopathy not noted Resp: Auscultation: rhonchi (Mild bilaterally), wheezes (Rare) and diminished lung so
--- NOTE | 2019-08-28 17:59 | PM.DS ---
DS: Diagnosis Admitting Diagnosis Admitting Diagnosis: Chronic obstructive pulmonary disease with (acute) exacerbation Discharge Diagnosis (1) Acute exacerbation of chronic obstructive airways disease: Code(s): J44.1 - Chronic obstructive pulmonary disease with (acute) exacerbation Status: Acute (2) Chest pain: Qualifiers: Chest pain type: unspecified Qualified Code(s): R07.9 - Chest pain, unspecified Code(s): R07.9 - Chest pain, unspecified Status: Acute Assessment and Plan: (3) Acute upper respiratory infection: Code(s): J06.9 - Acute upper respiratory infection, unspecified Status: Acute (4) Elevated blood-pressure reading without diagnosis of hypertension: Code(s): R03.0 - Elevated blood-pressure reading, without diagnosis of hypertension Status: Acute (5) Anxiety: Code(s): F41.9 - Anxiety disorder, unspecified Status: Acute (6) Sinus tachycardia: Code(s): R00.0 - Tachycardia, unspecified Status: Acute DS: Summary Hospital Course Reason for hospitalization: Shortness of breath. Hospital Course: Date of Service of Discharge: August 28, 2019. History of Present Illness: Patient is a 59-year-old with known history of anxiety, asthma and bronchitis present to the emergency room with increasing shortness of breath. Patient reports symptoms began 4 days previously. She reports having nonproductive cough, increased shortness of breath and nasal congestion/rhinorrhea. She initially went to urgent care on August 21. That time she received a prescription for prednisone 60 mg daily, azithromycin and Tamiflu. She did have a flu swab performed which was negative for influenza. Patient reports increase in her shortness of breath just prior to coming to the emergency room. She was worried about potential allergic reaction to the prednisone that she had received at urgent care. She did try her rescue inhaler which did not seem to help. On presentation to the emergency room, patient was felt to have COPD exacerbation. She was also noted to have significantly elevated blood pressure. As result, she was admitted for further evaluation and treatment. Course in Hospital: Patient was admitted to the medical floor where she remained for the duration of her stay. Pulmonology was consulted and did follow during her hospitalization. She was started on IV Solu-Medrol along with nebulizer treatments. No pulmonary embolism but did show a 4 mm left lower lobe nodule with recommendation for follow-up in 12 months as well as moderate to severe emphysema. With continued supportive care, patient did rapidly improve. She initially did require some oxygen but will had wean to room air by the time of discharge. She was able to ambulate in halls without significant shortness of breath. An echocardiogram was done revealing EF greater than 70%, diastolic dysfunction grade 1 and no significant valvular disease. Patient was advised she should have outpatient PFTs. As noted, blood pressure was significantly elevated on presentation. She did receive IV hydralazine. Eventually, oral losartan was started with blood pressure improving. Patient with no previous history of hypertension. Stress and steroids were suspected to be contributing but patient advised she would need follow-up with her primary physician as an outpatient for continued follow-up. She was noted to have significant anxiety while in hospital. Patient was agreeable to starting Lexapro. She did also receive alprazolam as needed. Patient was advised would not go home on alprazolam as would need long-term treatment with the Lexapro. With the patient improved, she was discharged home on August 28, 2019. Patient was advised she would not return to work until Wednesday, September 04, 2019. She is to follow-up for outpatient PFTs as well as follow-up with pulmonology as an outpatient in addition to her pr
[2019-08-28 19:31] LABS: Lupus dRVVT 1:1 Mix Interpreta Not Indicated; Lupus dRVVT Screen 31 sec (<=45); PTT-LA Screen 34 sec (<=40)
[2019-08-29 20:14] LABS: Anti Cardio Antibody IgM 12 MPL (<=12); Anti Cardiolipin Antibody IgA <11 APL (<=11); Anti Cardiolipin Antibody IgG <14 GPL (<=14)
[2019-08-30 06:54] LABS: Scleroderma 70 Antibody <1.0
[2019-08-30 10:17] LABS: SS-A <1.0; SS-B <1.0
[2019-08-30 12:30] LABS: Anti Nuclear Antibody Titer 1:40 (Negative)
--- NOTE | 2019-09-10 17:05 | PCRCNOTE ---
COPD Post Discharge Phone Call Questions: Week 1 Unable to contact patient. No Answer 1. How are you feeling today? 2. Have you had any follow-up appointments since your discharge? Yes/No a. Were you able to attend all appointments? Yes/No b. Do you have any upcoming appointments? Yes/No c. If referred to pulmonary rehab, is it going well? Yes/No 3. Have you had success with smoking cessation? Yes/No a. If you signed a smoking cessation contract, have you been contacted by anyone to assist you? Yes/No 4. Did you go home with any new respiratory medications? Yes/No a. What medications were they? b. Were the possible side effects explained? Yes/No 5. Did you go home with new respiratory equipment (oxygen, CPAP, NIV, Bipap, vent, nebs? Yes/No a. Were you shown how to use them? Yes/No b. Are you comfortable using them? Yes/No c. If not, what issues are you having with the equipment? 6. Have you experienced an increase in any of the following since your discharge... a. Cough? Yes/No b. Mucus Production? Yes/No c. Shortness of Breath? Yes/No d. Tiredness and/or Lethargy? Yes/No 7. Have you had to go to an Urgent Care Center/Emergency Room since discharge? Yes/No 8. Did you discuss with patient how to handle medical emergencies? Yes/No Additional Comments:
== END 2019-08-28 14:55 | disposition home or self-care (01) | DRG 192 ==
LOC: ANHED 23:40 → ANH3MEDSUR 23:55
PROVIDERS: Internal Medicine; Admitting Provider Internal Medicine; Emergency Provider Emergency Medicine; PCP Family Medicine; Visit Provider Hospitalist
DX: J43.9 Emphysema, unspecified (principal); F41.9 Anxiety disorder, unspecified; Z87.891 Personal history of nicotine dependence; K21.9 Gastro-esophageal reflux disease without esophagitis; E78.5 Hyperlipidemia, unspecified; Z87.440 Personal history of urinary (tract) infections; Z90.710 Acquired absence of both cervix and uterus; J06.9 Acute upper respiratory infection, unspecified; R03.0 Elevated blood-pressure reading, without diagnosis of hypertension; R00.0 Tachycardia, unspecified
CPT/HCPCS: 36415; 36600; 71046; 71275; 80048; 82103; 82375; 82805; 83050; 84484; 85025; 85027; 85613; 85730; 86038; 86039; 86147; 86225; 86235; 87804; 93005; 94640; 96372; 96374; 96375; 96376; 99285; A9270; C8929; G0378; J1650; J2060; J2930; J7120; Q9957; Q9967

== ENCOUNTER 2020-02-06 09:31 | Outpatient (CLI) | payer OTHER, SELFPAY ==
--- NOTE | 2020-02-12 13:21 | WPDPFTINT ---
PFT Interpretation PFT Interpretation: DOS: 02/06/2020 REQUESTING: Jack Go NP REASON FOR TESTING: COPD PULMONARY FUNCTION TESTS Results are reliable and reproducible. Spirometry: FEV1 52%, 1.22 L. FVC 68%. FEV1% is decreased. FEF 25-75 is 19%. No statistically significant increase after bronchodilator. Lung volumes: TLC 116% normal. RV 162% severely increased consistent with air trapping. Increased airway resistance 464%. Diffusion: DLCO 46%, moderately decreased Flow volume loop: Scooping of the expiratory limb. IMPRESSION: Moderately severe obstructive ventilatory defect without change following bronchodilator, severe air trapping, increased airway resistance, and moderate diffusion impairment. This pattern is consistent with emphysema. Lack of response to bronchodilators should not preclude use if clinically indicated. Dominique Mccarthy MD
== END 2020-02-06 09:32 | disposition home or self-care (01) ==
PROVIDERS: PCP Family Medicine; Visit Provider Nurse Practitioner Family
DX: R06.02 Shortness of breath (principal); R94.2 Abnormal results of pulmonary function studies
CPT/HCPCS: 94060; 94726; 94729

== ENCOUNTER 2020-05-14 06:39 | Outpatient (NON) | payer OTHER, SELFPAY ==
[2020-05-15 19:54] LABS: SARS-CoV-2 RNA PCR Negative
== END 2020-05-14 06:40 ==
LOC: ANHCOVIDDT 07:00
PROVIDERS: PCP Family Medicine; Visit Provider Physician Assistant Medical
DX: R68.89 Other general symptoms and signs (principal); Z20.828 Contact with and (suspected) exposure to other viral communicable diseases
CPT/HCPCS: 87635; C9803; U0003

== ENCOUNTER 2020-06-02 11:11 | Outpatient (CLI) | payer OTHER, SELFPAY ==
--- NOTE | ~2020-06-02 | MM_ITS ---
EXAMINATION: MM screening regi BI w yue HISTORY: Screening mammogram TECHNIQUE: Craniocaudal and mediolateral oblique 3-D tomosynthesis images were obtained and synthetic 2-D images were generated. CAD analysis was submitted and interpreted. COMPARISON: 04/26/2019 complete right breast ultrasound 03/23/2019 diagnostic right digital mammogram 07/20/2018 diagnostic right digital mammogram and limited right breast ultrasound 06/29/2018 bilateral digital screening mammogram BREAST PARENCHYMAL COMPOSITION: There are scattered areas of fibroglandular density. FINDINGS: Occasional benign calcifications. There is no evidence of suspicious mass, calcification, o r architectural distortion to suggest malignancy in either breast. There has been no suspicious inter blayne change. IMPRESSION: 1. No mammographic evidence of malignancy. 2. Recommend routine screening mammography in one year. BI-RADS Category 2: Benign finding(s). Reviewed, dictated and finalized at location A. S [employer]
== END 2020-06-02 11:12 | disposition home or self-care (01) ==
PROVIDERS: PCP Family Medicine; Visit Provider Obstetrics & Gynecology
DX: Z12.31 Encounter for screening mammogram for malignant neoplasm of breast (principal)
CPT/HCPCS: 77063; 77067

== ENCOUNTER → 2021-01-13 11:42 | Outpatient (CLI) | payer OTHER, SELFPAY ==
--- NOTE | ~2021-01-13 | US_ITS ---
EXAMINATION: US thyroid EXAM DATE: 01/13/2021 11:59 INDICATION: E04.9 - Nontoxic goiter, unspecified. Weight gain. Hair loss. TECHNIQUE: Multiple grayscale and Doppler images of the thyroid were obtained (by a technologist who performed the scan) and subsequently reviewed. Individual nodules and recommendations may be reporte d in accordance with TI-RADS system as designated by the 2017 ACR White Paper TI-RADS committee. The re is no prior study for comparison. FINDINGS: The right thyroid lobe measures 3.5 x 0.9 x 1.6 cm the left measuring 3.9 x 1.1 x 1.1 cm. Mildly hete rogeneous thyroid echogenicity. The measurements are within normal limits. There is a 3 mm right thyr oid lobe hypoechoic nodule, not a clinically significant. IMPRESSION: Unremarkable thyroid ultrasound exam. Reviewed, dictated and finalized at location A.
== END ==
PROVIDERS: PCP Physician Assistant Medical; Visit Provider Physician Assistant Medical
DX: E04.9 Nontoxic goiter, unspecified (principal)
CPT/HCPCS: 76536

== ENCOUNTER 2021-03-13 09:57 | Outpatient (CLI) | payer OTHER, SELFPAY ==
--- NOTE | ~2021-03-13 | US_ITS ---
EXAMINATION: US abdomen complete DATE: 03/13/2021 10:21 INDICATION: Other specified abnormal findings of blood chemistry TECHNIQUE: Multiple grayscale and Doppler ultrasound images of the abdomen were obtained. COMPARISON: None available FINDINGS: The head and body of the pancreas are normal. The pancreatic tail is obscured by bowel gas. The liver demonstrates increased echogenicity, heterogenous echotexture, and decreased through trans mission. No surface nodularity. Normal hepatopetal flow in the main portal vein. The gallbladder is n ormal with no abnormal wall thickening, pericholecystic fluid or stones. The normal common bile duct measures 3 mm. There was no sonographic Hall sign. The visualized portions of the aorta and inferio r vena cava are normal. The right kidney measures 9.0 x 4.1 x 5.2 cm. The left kidney measures 10.5 x 4.3 x 5.3 cm. The kidne ys demonstrate normal parenchymal echogenicity. There is no hydronephrosis. The spleen is normal in a ppearance and measures 10.4 cm. IMPRESSION: 1. Diffuse hepatic steatosis. Reviewed, dictated and finalized at location B.
== END 2021-03-13 09:58 ==
PROVIDERS: PCP Family Medicine; Visit Provider Physician Assistant Medical
DX: R79.89 Other specified abnormal findings of blood chemistry (principal); K76.0 Fatty (change of) liver, not elsewhere classified
CPT/HCPCS: 76700

== ENCOUNTER → 2021-07-02 10:36 | Outpatient (CLI) | payer OTHER, SELFPAY ==
--- NOTE | ~2021-07-02 | MM_ITS ---
EXAMINATION: MM screening regi BI w yue HISTORY: Screening TECHNIQUE: Craniocaudal and mediolateral oblique 3-D tomosynthesis images were obtained and synthetic 2-D images were generated. CAD analysis was submitted and interpreted. COMPARISON: No prior mammogram is available for comparison at this institution. BREAST PARENCHYMAL COMPOSITION: There are scattered areas of fibroglandular density. FINDINGS: There are developing nodular asymmetries in the upper central aspect of the left breast. Th e right breast is stable without evidence for malignancy. IMPRESSION: 1. Developing nodular asymmetries of the left breast. 2. Additional mammographic views and possible breast ultrasound are recommended. BI-RADS Category 0: Incomplete: Needs additional imaging evaluation. Reviewed, dictated and finalized at location A. TICS SYSTEMS ENGINEER IMPRESSION: 1. Developing nodular asymmetries of the left breast. 2. Additional mammographic views and possible breast ultrasound are recommended . BI-RADS Category 0: Incomplete: Needs additional imaging evaluation.
== END ==
PROVIDERS: PCP Family Medicine; Visit Provider Obstetrics & Gynecology
DX: Z12.31 Encounter for screening mammogram for malignant neoplasm of breast (principal); R92.8 Other abnormal and inconclusive findings on diagnostic imaging of breast
CPT/HCPCS: 77063; 77067

== ENCOUNTER 2021-07-20 12:48 | Outpatient (CLI) | payer OTHER, SELFPAY ==
--- NOTE | ~2021-07-20 | MMUS_ITS ---
EXAMINATION: MM diagnostic regi LT w yue, US breast LT complete HISTORY: Follow-up left breast asymmetries TECHNIQUE: Additional 3-D tomosynthesis images of the left breast were performed and synthetic 2-D im ages were generated. CAD analysis was submitted and interpreted. High resolution complete left breast ultrasound was performed. COMPARISON: 07/02/2021 BREAST PARENCHYMAL COMPOSITION: Breast composed of scattered areas of fibroglandular density. FINDINGS: MAMMOGRAPHIC FINDINGS: There is a small radiolucent mass in the lateral aspect of the left breast on CC view anteriorly. No suspicious calcifications or architectural distortion. ULTRASOUND: Complete bilateral US of all 4 quadrants of the left breast and retroareolar region was reviewed. At 5:00 near the nipple there is an oval hypoechoic 4 mm mass without posterior features or internal vas cularity. No other discrete masses are identified. This likely corresponds to the area of mammographi c concern. IMPRESSION: 1. Probable benign left breast mass at 5:00 near the nipple measuring 4 mm. 2. Recommend 6 month follow-up diagnostic left mammogram and ultrasound BI-RADS category 3, probably benign findings. Reviewed, dictated and finalized at location B. MP PEELING MACHINE TENDER IMPRESSION: 1. Probable benign left breast mass at 5:00 near the nipple measuring 4 mm. 2. Recommend 6 month follow-up diagnostic left mammogram and ultrasound BI-RADS category 3, probably benign findings.
== END 2021-07-20 12:49 | disposition home or self-care (01) ==
LOC: ANHIMG 12:49
PROVIDERS: PCP Family Medicine; Visit Provider Obstetrics & Gynecology
DX: R92.8 Other abnormal and inconclusive findings on diagnostic imaging of breast (principal)
CPT/HCPCS: 76641; 77061; 77065; G0279

== ENCOUNTER 2022-04-18 10:05 | Emergency (ER) | payer SELFPAY ==
[2022-04-18] VITALS (13 sets, daily range): BP systolic 148–169; BP diastolic 81–94; PULSE 90–116; RESP 13–21; TEMP 37.2; O2SAT 94–99
--- NOTE | ~2022-04-18 | XR_ITS ---
EXAMINATION: XR chest 1V portable DATE: 04/18/2022 11:49 INDICATION: Shortness of breath. Upper respiratory tract infection. TECHNIQUE: frontal view of the chest was obtained. COMPARISON: Chest radiograph dated 08/24/[address] dated 08/25/2019 FINDINGS: Calcified right lower lobe nodule and calcified mediastinal lymph nodes consistent with old granuloma tous disease. No new airspace opacities, pulmonary edema, pleural effusion or pneumothorax. Heart siz e is normal. IMPRESSION: 1. No acute cardiopulmonary disease. Reviewed, dictated and finalized at location A.
--- NOTE | 2022-04-18 10:46 | ECG_ITS ---
Measurements Intervals [place] Rate: 98 P: 56 WV: 167 QRS: 42 QRSD: 94 T: 44 QT: 320 QTc: 410 Interpretive Statements SINUS RHYTHM POSSIBLE LEFT ATRIAL ENLARGEMENT LOW QRS VOLTAGE IN PRECORDIAL LEADS BORDERLINE ECG COMPARED TO ECG 08/27/2019 12:54:34 NO SIGNIFICANT CHANGES Electronically Signed On 04-18-2022 15:48:51 CDT by Rhett Luong M.D.
--- NOTE | 2022-04-18 11:22 | ED.GENADULT ---
HPI - General Adult General Chief complaint: Upper Respiratory Infection <MARYCARMEN Fulton Last Filed: 04/18/22 18:19> Stated complaint: SOB, heart racing <MARYCARMEN Fulton Last Filed: 04/18/22 18:19> Time Seen by Provider: 04/18/22 10:11 <MARYCARMEN Fulton Last Filed: 04/18/22 18:19> Source: patient <MARYCARMEN Fulton Last Filed: 04/18/22 18:19> Mode of arrival: ambulatory <MARYCARMEN Fulton Last Filed: 04/18/22 18:19> Limitations: no limitations <MARYCARMEN Fulton Last Filed: 04/18/22 18:19> History of Present Illness HPI narrative: Patient is a 62 y/o female, with PMHx of COPD, who presents to the ED with c/o URI symptoms. Patient reports she began feeling unwell yesterday. She reports having several symptoms, including cough, sore throat, congestion, rhinorrhea, myalgias, headache, palpitations, mild difficulty breathing. She states the shortness of breath is worse with laying flat. Denies any known fever, chest pain, abdominal pain, N/V. She has not tried anything for her symptoms yet. Patient is vaccinated for COVID. <MARYCARMEN Fulton Last Filed: 04/18/22 18:19> Related Data Home medications: Home Medications Medication Instructions Recorded Confirmed cholecalciferol (vitamin D3) 25 25 mcg PO DAILY 08/25/19 11/18/21 mcg (1,000 unit) tablet (Vitamin D3) fluticasone furoate 27.5 1 spray intranasal DAILY 09/05/19 11/18/21 mcg/actuation nasal spray,suspension (Flonase Sensimist) <MARYCARMEN Fulton Last Filed: 04/18/22 18:19> Allergies/adverse reactions: Allergies Allergy/AdvReac Type Severity Reaction Status Date / Time Cephalosporins Allergy Severe RED, Verified 11/18/21 10:13 FLUSHED, BURNING SKIN Penicillins Allergy Unknown Unknown Verified 11/18/21 10:13 Sulfa (Sulfonamide Allergy Unknown Unknown Verified 11/18/21 10:13 Antibiotics) <Jasmina De Dios PA-C - Last Filed: 04/18/22 18:19> Review of Systems Review of Systems: CONSTITUTIONAL: Denies fever, chills, or sweats. ENT: Reports rhinorrhea, congestion, sore throat. CARDIOVASCULAR: Reports palpitations. Denies chest pain. RESPIRATORY: Reports cough and dyspnea. GASTROINTESTINAL: Denies abdominal pain, nausea, vomiting. MUSCULOSKELETAL: Reports myalgias. NEUROLOGIC: Reports TONG. Denies numbness or weakness. <Jasmina De Dios PA-C - Last Filed: 04/18/22 18:19> All systems reviewed & are unremarkable except as noted in HPI and below <Jasmina De Dios PA-C - Last Filed: 04/18/22 18:19> PMFSH Past Medical History Medical History: Medical History Anxiety Asthma BMI 28.0-28.9,adult BMI 29.0-29.9,adult Bronchitis COPD (chronic obstructive pulmonary disease) Dyslipidemia Environmental allergies GERD (gastroesophageal reflux disease) UTI (urinary tract infection) <Jasmina De Dios PA-C - Last Filed: 04/18/22 18:19> Surgical History Surgical History: Surgical History H/O dilation and curettage H/O tubal ligation H/O: hysterectomy Hx of tonsillectomy <Jasmina De Dios PA-C - Last Filed: 04/18/22 18:19> Family History Family History: Family History Sibling Coronary artery disease Sibling Hypertension Diabetes mellitus Her sister is in a residential and has had limb amputation and other complications of diabetes. Father Hypertension Acute myocardial infarction Diabetes mellitus History of kidney cancer Mother A-fib <Jasmina De Dios PA-C - Last Filed: 04/18/22 18:19> Social History Social History: Social History Social History:
[2022-04-18 11:46] LABS: Basophils Percent Auto 0.3 % (0.2-1.2); Eosinophils Absolute Auto 0.1 K/mm3 (0-0.3); Eosinophils Percent Auto 1.3 % (0-4.4); Hemoglobin 14.1 g/dL (12.0-15.0); Immature Granulocyte Absolute 0.04 K/mm3 (0.00-0.031); Immature Granulocyte Percent A 0.6 % (0-0.5); Lymphocytes Absolute Auto 1.38 K/mm3 (0.9-3.2); Lymphocytes Percent Auto 20.7 % (18.3-44.2); Mean Corpuscular HGB Conc 31.3 g/dl (32-36); Mean Corpuscular Hemoglobin 30.2 pg (26-34); Mean Corpuscular Volume 96.4 fl (80-100); Mean Platelet Volume 11.1 fl (7.4-10.4); Monocytes Absolute Auto 0.6 K/mm3 (0.1-0.6); Monocytes Percent Auto 8.8 % (2.6-8.5); Neutrophils Absolute Auto 4.6 K/mm3 (1.3-6.7); Neutrophils Percent Auto 68.3 % (45.5-73.1); Platelet Count Result 158 k/mm3 (150-375); Red Blood Count 4.67 M/mm3 (4.2-5.4); Red Cell Distribution Width 13.1 % (11.5-14.5); White Blood Count 6.7 K/mm3 (4.5-10.0)
[2022-04-18 11:53] LABS: Alanine Aminotransferase 42 U/L (6-35); Albumin Level 4.4 g/dL (3.5-5.1); Alkaline Phosphatase 99 U/L (38-126); Anion Gap 8 mmol/L (8-16); Aspartate Amino Transferase 47 U/L (14-36); Bilirubin,Total 1.4 mg/dL (0.2-1.3); Blood Urea Nitrogen 13 mg/dL (7-17); Calcium 8.8 mg/dL (8.4-10.2); Carbon Dioxide 27 mmol/L (22-30); Chloride 102 mmol/L (98-107); Estimated CRCL calculation 53 ml/min; Estimated Glomerular Filt Rate 56; Glucose 95 mg/dL (65-110); Potassium 4.3 mmol/L (3.4-5.0); Sodium 137 mmol/L (137-145)
[2022-04-18 11:59] LABS: INR 1.1; Partial Thromboplastin Time 31.8 SECONDS (22.3-36.8); Prothrombin Time 13.6 Seconds (11.1-14.7)
[2022-04-18 12:03] LABS: NT Pro B Type Natriuretic Pept 90 pg/mL (5-100); Troponin I < 0.012 ng/mL (0.000-0.034)
[2022-04-18 12:04] LABS: D Dimer 0.37 ug/mL (<0.48)
[2022-04-18] MEDS: SODIUM CHLORIDE 0.9% IV 1,000 ML 999 ML IV CONT (12:46)
[2022-04-18] MEDS: ONDANSETRON INJ 4 MG/2 ML VIAL IV PUSH (12:47)
[2022-04-18 13:30] LABS: Influenza A QL RT-PCR Negative (Negative); Influenza B QL RT-PCR Negative (Negative); SARS-CoV-2 RNA PCR Negative
[2022-04-18] MEDS: ALBUTEROL SULFATE NEB 2.5 MG/3 ML INH 15 MG INHALATION (14:24)
[2022-04-18] MEDS: IPRATROPIUM BR 0.02% INH SOLN 0.5 MG/2.5 ML VIAL 1.5 MG INHALATION (14:25)
--- NOTE | 2022-04-18 16:44 | PC.NURSE ---
ambulated pt. Pulse ox was 95% consistently and Heart rate was in the 130
[2022-04-18] MEDS: methylPREDNISolone SOD SUCC 125 MG VIAL IV PUSH (18:00)
== END 2022-04-18 18:45 | disposition home or self-care (01) ==
PROVIDERS: Physician Assistant; Emergency Provider Emergency Medicine; PCP Family Medicine
DX: J44.1 Chronic obstructive pulmonary disease with (acute) exacerbation (principal); J06.9 Acute upper respiratory infection, unspecified; Z20.822 Contact with and (suspected) exposure to COVID-19; E78.5 Hyperlipidemia, unspecified; K21.9 Gastro-esophageal reflux disease without esophagitis; Z87.442 Personal history of urinary calculi; Z90.710 Acquired absence of both cervix and uterus; Z87.891 Personal history of nicotine dependence; R94.31 Abnormal electrocardiogram [ECG] [EKG]
CPT/HCPCS: 36415; 71045; 80053; 83880; 84484; 85025; 85380; 85610; 85730; 87502; 93005; 94640; 96365; 96366; 96375; 99284; C9803; J0131; J2405; J2930; J7030; U0003; U0005

== ENCOUNTER 2022-12-01 08:50 | Outpatient (CLI) | payer OTHER, SELFPAY ==
--- NOTE | ~2022-12-01 | MMUS_ITS ---
EXAMINATION: MM diagnostic regi BI w yue, US breast BI complete HISTORY: Six-month follow-up of probable benign left breast mass at 5:00 near nipple TECHNIQUE: Bilateral full field and spot 3-D tomosynthesis images were performed and synthetic 2-D im ages were generated. CAD analysis was submitted and interpreted. High resolution bilateral complete b reast ultrasound examination including all 4 quadrants and subareolar areas was performed. COMPARISON: 07/20/2021 diagnostic left mammogram and complete left breast ultrasound examination 07/02/2021, 06/02/2020 bilateral screening mammogram examinations BREAST PARENCHYMAL COMPOSITION: There are scattered areas of fibroglandular density. FINDINGS: MAMMOGRAPHIC FINDINGS: There is mildly nodular fibroglandular stroma of the breasts. 4-5 mm circumscribed oval low-density opacity is noted in the lower outer left breast, benign in appe arance, likely corresponding to previously reported 4:00 cyst at 5:00 position on 07/20/2021 sonograph ic examination No suspicious mass, architectural distortion, malignant calcification, skin thickening or retraction or significant new or developing density of either breast is evident. ULTRASOUND: Left breast: 12:00 3 cm from nipple: Mildly irregular hypoechoic 3.4 x 4.2 mm lesion without internal vascularity or posterior shadowing; six-month targeted ultrasound follow-up at this location is recommended. 12:00 3 cm from nipple: 2.5 x 3.2 mm circumscribed hypoechoic lesion without internal vascularity or posterior shadowing, likely benign At 5:00 subareolar area there is a mildly irregular sonolucency without internal echoes or internal v ascularity or posterior shadowing, measuring approximately 3 x 5.4 mm dimension, likely a benign cyst . This measured approximately 3.5 x 4.1 mm on 07/20/2021. 8:00 8 cm from nipple: In the subcutaneous adipose tissues there is a parallel circumscribed hypoecho ic lesion measuring approximately 5.5 x 3 x 6.4 mm, with through transmission, likely a sebaceous cys t 6 month follow-up targeted ultrasound is recommended. Right breast: 12:00 2 cm from nipple: Parallel circumscribed hypoechoic 2 x 4 x 5 mm lesion without internal vascul arity or posterior shadowing, likely a small cyst 4:00 2 cm from nipple: 2 x 2.6 x 3.9 mm mildly irregular hypoechoic lesion without internal vasculari ty or posterior shadowing, likely benign; six-month follow-up targeted imaging of this location is re commended 7:00 1 cm from nipple: Parallel circumscribed 2.4 x 4.8 x 4 mm lesion without internal vascularity or posterior shadowing, benign in appearance 7:00 1 cm from nipple: Parallel circumscribed sonolucency measuring 2 x 4.7 x 4.8 mm, likely a small cyst IMPRESSION: 1. Probable benign findings 2. 6 month follow-up Limited bilateral breast ultrasound examination is recommended, with comparison to current examination BI-RADS category 3, probably benign findings. Reviewed, dictated and finalized at location A. IMPRESSION: 1. Probable benign findings 2. 6 month follow-up Limited bilateral breast ultrasound examination is recomme nded, with comparison to current examination BI-RADS category 3, probably benign findings.
== END 2022-12-01 08:51 ==
LOC: MICIMG 08:52
PROVIDERS: PCP Family Medicine; Visit Provider Obstetrics & Gynecology
DX: R92.8 Other abnormal and inconclusive findings on diagnostic imaging of breast (principal)
CPT/HCPCS: 76641; 77062; 77066; G0279

== ENCOUNTER → 2023-06-29 08:05 | Outpatient (CLI) | payer OTHER, SELFPAY ==
--- NOTE | ~2023-06-29 | US_ITS ---
US breast BI limited DATE: 06/29/2023 08:31 INDICATION: Six-month follow-up of bilateral breast lesions TECHNIQUE: Real-time imaging and color flow imaging targeted at right breast 4:00 and 12:00 and left breast 8:00 lesions COMPARISON: 12/01/2022 bilateral complete breast ultrasound examination FINDINGS: Right breast: 4:00 2 cm from nipple: Approximately 2.4 mm stable hypoechoic area without internal vascularity or po sterior shadowing, likely benign Left breast: 8:00 8 cm from nipple: There is a complicated parallel circumscribed cyst with through transmission p osterior enhancement in the subcutaneous tissues, measuring approximately 3.5 x 7 x 7.8 mm, slightly increased in size since 12/01/2022. This is likely a sebaceous cyst or other benign cystic lesion. 12:00 3 cm from nipple: No significant change of circumscribed parallel approximately 5 x 3.3 mm hypo echoic lesion without internal vascularity posterior shadowing. IMPRESSION: BI-RADS Category 2 benign findings Recommendation: Routine annual mammographic screening Reviewed, dictated and finalized at Location A. Reviewed, dictated and finalized at location A. E MAKER
== END ==
PROVIDERS: PCP Obstetrics & Gynecology; Visit Provider Obstetrics & Gynecology
DX: R92.8 Other abnormal and inconclusive findings on diagnostic imaging of breast (principal)
CPT/HCPCS: 76642

== ENCOUNTER 2024-04-17 08:54 | Outpatient (CLI) | payer BC, SELFPAY ==
--- NOTE | ~2024-04-17 | MM_ITS ---
EXAMINATION: MM screening [facility] BI w yue HISTORY: Screening TECHNIQUE: Craniocaudal and mediolateral oblique 3-D tomosynthesis images were obtained and synthetic 2-D images were generated. CAD analysis was submitted and interpreted. COMPARISON: Comparison to multiple prior studies sequentially, with oldest reviewed study dated 07/20. BREAST PARENCHYMAL COMPOSITION: Not dense: There are scattered areas of fibroglandular density. FINDINGS: Bilateral nodular asymmetries are stable compared with prior examinations. No new masses, c alcifications or architectural distortion. There is no evidence of suspicious mass, calcification, or architectural distortion to suggest malignancy in either breast. There has been no suspicious interv al change. IMPRESSION: 1. No mammographic evidence of malignancy. 2. Recommend routine screening mammography in one year. BI-RADS Category 2: Benign finding(s). Reviewed, dictated and finalized at location B.
== END 2024-04-17 08:55 | disposition home or self-care (01) ==
PROVIDERS: PCP Family Medicine; Visit Provider Obstetrics & Gynecology
DX: Z12.31 Encounter for screening mammogram for malignant neoplasm of breast (principal)
CPT/HCPCS: 77063; 77067

== ENCOUNTER 2024-09-22 02:34 | Inpatient (IN) | payer BC, SELFPAY ==
[2024-09-22] VITALS (25 sets, daily range): BP systolic 135–193; BP diastolic 74–102; PULSE 78–112; RESP 14–22; TEMP 36.4–37.1; O2SAT 88–100; BMI 29.6
--- NOTE | ~2024-09-22 | XR_ITS ---
XR chest 1V portable 09/22/2024 03:40 Indication: Shortness of breath Procedure: AP portable chest Comparison: Comparison to multiple prior studies sequentially, with oldest reviewed study dated 09/2023. Findings: Heart size normal. No focal air space disease, pulmonary edema, pleural effusion or suspect ed pneumothorax. The lungs are hyperinflated which is consistent with, but not diagnostic of chronic obstructive pulmo nary disease. Impression: 1: No acute cardiopulmonary disease. Reviewed, dictated and finalized at location B. Impression: 1: No acute cardiopulmonary disease.
--- NOTE | 2024-09-22 02:45 | ECG_ITS ---
Test Date: 2024-09-22 02:47:28 Measurements Intervals [place] Rate: 81 P: 52 [place]: 186 QRS: 15 QRSD: 92 T: 52 QT: 370 QTc: 432 Interpretive Statements SINUS RHYTHM LOW QRS VOLTAGE IN PRECORDIAL LEADS [QRS DEFLECTION < 1.0 mV IN CHEST LEADS] No previous ECG available for comparison Electronically Signed On 09-22-2024 17:34:35 CDT by Lalita Jade M.D.
[2024-09-22 03:04] LABS: Basophils Percent Auto 0.3 % (0.2-1.2); Eosinophils Absolute Auto 0.1 K/mm3 (0-0.3); Eosinophils Percent Auto 0.9 % (0-4.4); Hematocrit 39.8 % (37.0-47.0); Hemoglobin 13.3 g/dL (12.0-15.0); Immature Granulocyte Absolute 0.03 K/mm3 (0.00-0.031); Immature Granulocyte Percent A 0.5 % (0-0.5); Immature Platelet Fraction Pct 8.3 % (0.9-11.2); Lymphocytes Absolute Auto 3.21 K/mm3 (0.9-3.2); Lymphocytes Percent Auto 50.5 % (18.3-44.2); Mean Corpuscular HGB Conc 33.4 g/dl (32-36); Mean Corpuscular Volume 89.6 fl (80-100); Mean Platelet Volume 11.7 fl (7.4-10.4); Monocytes Absolute Auto 0.5 K/mm3 (0.1-0.6); Monocytes Percent Auto 8.2 % (2.6-8.5); Neutrophils Absolute Auto 2.5 K/mm3 (1.3-6.7); Neutrophils Percent Auto 39.6 % (45.5-73.1); Platelet Count Result 129 k/mm3 (150-375); Red Blood Count 4.44 M/mm3 (4.2-5.4); Red Cell Distribution Width 12.8 % (11.5-14.5); White Blood Count 6.4 K/mm3 (4.5-10.0)
[2024-09-22 03:25] LABS: Alanine Aminotransferase 40 U/L (6-35); Albumin Level 3.9 g/dL (3.5-5.1); Alkaline Phosphatase 65 U/L (38-126); Anion Gap 7 mmol/L (4-12); Aspartate Amino Transferase 48 U/L (14-36); Blood Urea Nitrogen 18 mg/dL (7-17); Calcium 9.2 mg/dL (8.4-10.2); Carbon Dioxide 30 mmol/L (22-30); Chloride 101 mmol/L (98-107); Estimated CRCL calculation 67 ml/min; Estimated Glomerular Filt Rate > 60; Glucose 119 mg/dL (65-110); Potassium 3.2 mmol/L (3.4-5.0); Sodium 138 mmol/L (137-145)
--- NOTE | 2024-09-22 03:33 | ED_ITS ---
HPI - General Adult General Chief complaint: Shortness of Breath/Dyspnea Stated complaint: Low O2 sats Time Seen by Provider: 09/22/24 03:06 History of Present Illness HPI narrative: Patient 64-year-old female who presents emergency department with chief complaint of shortness of breath with exertion. Patient reports that she felt short of breath particularly with exerted herself patient states that she was diagnosed with influenza and then has completed a course of Tamiflu and is currently on an inhaler. Patient reports that she is not on home oxygen reports that the breathing gets worse whenever she ambulates. Patient reports no peripheral edema patient denies chest pain Related Data Home Medications ?Medication ?Instructions ?Recorded ?Confirmed ?Last Taken ?Type cholecalciferol (vitamin D3) 25 25 mcg PO DAILY 08/25/19 02/27/24 08/24/19 History mcg (1,000 unit) tablet (Vitamin D3) alendronate 70 mg tablet mg PO 06/28/24 Unknown History Allergies Allergy/AdvReac Type Severity Reaction Status Date / Time Cephalosporins Allergy Severe RED, Verified 06/28/24 12:48 FLUSHED, BURNING SKIN Penicillins Allergy Unknown Unknown Verified 06/28/24 12:48 Sulfa (Sulfonamide Allergy Unknown Unknown Verified 06/28/24 12:48 Antibiotics) Review of Systems 2 Review of Systems: A 10 system review of systems was completed on the patient and is negative except for what is stated in the HPI. Nursing and ancillary documentation was reviewed. [facility] Past Medical History Medical History Vitreous hemorrhage BMI 28.0-28.9,adult BMI 29.0-29.9,adult Dyslipidemia Environmental allergies Anxiety UTI (urinary tract infection) GERD (gastroesophageal reflux disease) Bronchitis Asthma COPD (chronic obstructive pulmonary disease) Surgical History Surgical History H/O dilation and curettage H/O: hysterectomy H/O tubal ligation Hx of tonsillectomy Family History Family History Sibling Coronary artery disease Sibling Hypertension Diabetes mellitus Her sister is in a [place] [facility] facility and has had limb amputation and other complications of diabetes. Father Hypertension Acute myocardial infarction Diabetes mellitus History of kidney cancer Mother A-fib Social History Social History Social History: Primary care physician: Dr. Deborah Cleary Code status: Full code Smoking packs per day: 1 Smoking cigarettes per day: 20.0 Years smoked: 37 Smoking pack-years: 37.00 Smoking status: Former smoker Tobacco type: cigarettes Second hand tobacco smoke exposure: No Smoking end date: 04/03/15 Alcohol intake: current Drinks per week: 0 Alcohol use details: The patient drinks alcohol rarely and small amounts Substance use: former Substance use type: marijuana Do You Feel Safe in your Home?: Yes Lack of Transportation: No Lack of Food: Never True Current Housing: I Have Housing Concerned About Future Housing: No Difficulty Paying Gas/Electric Bills: No Difficulty Paying for Meds: No Currently Unemployed: No Education: High School Diploma/GED Difficulty w/ Childcare or Family Care: No Living arrangements: with family Additional living arrangements comments: The patient her have been together since the but had not been for approximately 20 years. 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 Gender identity (if verbalized by the patient): Female Spiritual care concerns: No Agree to blood products: Yes Exam 2 Narrative: GENERAL: Well-appearing, well-nourished, and in no acute distress. HEAD: Normocephalic, atraumatic. EYES: PERRLA and EOMI. ENT: Nares clear, no rhinorrhea or epistaxis. Mucous membranes moist. NECK: Supple. CHEST: Clear to auscultation. No respiratory distress. HEART: Regular rate and rhythm. No murmur heard. Normal peripheral pulses. ABDOMEN: Soft, nontender, nondistended, normal active bowel sounds. EXTREMITIES: Normal range of motion. No edema. SKIN: Warm, dry, no rash. NEURO: No focal deficits. Alert and oriented x3. PSYCH: Normal mood and affect. Course Vital Signs Vital signs: Vital Signs Temperature 36.6 C 09/22/24 02:51 Pulse Rate 112 H 09/22/24 02:51 Respiratory Rate 16 09/22/24 02:51 Blood Pressure 193/102 H 09/22/24 02:51 Pulse Oximetry 88 L 09/22/24 02:51 Oxygen Delivery Room Air 09/22/24 02:51 Temperature 36.6 C 09/22/24 02:51 Pulse Rate 89 09/22/24 04:00 Respiratory Rate 18 09/22/24 04:00 Blood Pressure 193/102 H 09/22/24 02:51 Pulse Oximetry 90 09/22/24 05:18 Oxygen Delivery Nasal Cannula 09/22/24 05:18 Oxygen Flow Rate 1 09/22/24 05:18 Medical Decision Making MDM Narrative Medical decision making narrative: Differential diagnosis includes pneumonia, upper respiratory infection, hypoxic respiratory failure Patient was hypoxic on room air requiring 1-2 L nasal cannula with ambulation the patient did drop to the 80s and did require supplemental oxygen. Chest x- ray did not show significant consolidation The case will be discussed with hospitalist for admission Vital Signs Vital Signs: Vital Signs Temperature 36.6 C 09/22/24 02:51 Pulse Rate 112 H 09/22/24 02:51 Respiratory Rate 16 09/22/24 02:51 Blood Pressure 193/102 H 09/22/24 02:51 Pulse Oximetry 88 L 09/22/24 02:51 Oxygen Delivery Room Air 09/22/24 02:51 Temperature 36.6 C 09/22/24 02:51 Pulse Rate 89 09/22/24 04:00 Respiratory Rate 18 09/22/24 04:00 Blood Pressure 193/102 H 09/22/24 02:51 Pulse Oximetry 90 09/22/24 05:18 Oxygen Delivery Nasal Cannula 09/22/24 05:18 Oxygen Flow Rate 1 09/22/24 05:18 Lab Data 09/22/24 02:56 09/22/24 03:11 Labs: Lab Results 09/22/24 09/22/24 Range/Units 02:56 03:11 WBC 6.4 (4.5-10.0) K/mm3 RBC 4.44 (4.2-5.4) M/mm3 Hgb 13.3 (12.0-15.0) g/dL Hct 39.8 (37.0-47.0) % MCV 89.6 (80-100) fl MCH 30.0 (26-34) pg MCHC 33.4 (32-36) g/dl RDW 12.8 (11.5-14.5) % Plt Count 129 L (150-375) k/mm3 MPV 11.7 H (7.4-10.4) fl Immature Gran % (Auto) 0.5 (0-0.5) % Neut % (Auto) 39.6 L (45.5-73.1) % Lymph % (Auto) 50.5 H (18.3-44.2) % Josephine % (Auto) 8.2 (2.6-8.5) % Eos % (Auto) 0.9 (0-4.4) % Baso % (Auto) 0.3 (0.2-1.2) % Lymph # (Auto) 3.21 H (0.9-3.2) K/mm3 Josephine # (Auto) 0.5 (0.1-0.6) K/mm3 Eos # (Auto) 0.1 (0-0.3) K/mm3 Baso # (Auto) 0.0 (0.0-0.1) K/mm3 Abs Immat Gran (auto) 0.03 (0.00-0.031) K/mm3 Absolute Neuts (auto) 2.5 (1.3-6.7) K/mm3 Absolute Nucleated RBC 0.000 (0.0-0.012) K/mm3 Nucleated RBC % 0.0 (0.0-0.2) % % Immature Plt Fraction 8.3 (0.9-11.2) % Sodium 138 (137-145) mmol/L Potassium 3.2 L (3.4-5.0) mmol/L Chloride 101 (98-107) mmol/L Carbon Dioxide 30 (22-30) mmol/L Anion Gap 7 (4-12) mmol/L BUN 18 H (7-17) mg/dL Creatinine 0.78 (0.7-1.0) mg/dL Estim Creat Clear Calc 67 ml/min Estimated GFR > 60 (59 - ) Glucose 119 H (65-110) mg/dL Calcium 9.2 (8.4-10.2) mg/dL Total Bilirubin 1.0 (0.2-1.3) mg/dL AST 48 H (14-36) U/L ALT 40 H (6-35) U/L Alkaline Phosphatase 65 (38-126) U/L Troponin I 0.025 (0.000-0.034) ng/mL NT-Pro-B Natriuret Pep 35 (19.9-100) pg/mL Total Protein 7.0 (6.3-8.2) g/dL Albumin 3.9 (3.5-5.1) g/dL Influenza A (RT-PCR) Positive A (Negative) Influenza B (RT-PCR) Negative (Negative) RSV (RT-PCR) Negative (Negative) SARS-CoV-2 RNA (RT-PCR) Negative (Negative) Discharge Plan Discharge Clinical Impression: Acute hypoxemic respiratory failure, Influenza Patient Disposition: Still a Patient Condition: Stable Patient Language: Kinyarwanda Prescriptions: No Action losartan 25 mg tablet See Rx Instructions .ROUTE .COMPLEX Qty: 90 2RF Dose Instruction: TAKE ONE TABLET BY MOUTH EVERY MORNING Rx Instructions: TAKE ONE TABLET BY MOUTH EVERY MORNING omeprazole 20 mg capsule,delayed release(DR/EC) See Rx Instructions .ROUTE .COMPLEX Qty: 90 2RF Dose Instruction: TAKE ONE CAPSULE BY MOUTH ONCE DAILY Rx Instructions: TAKE ONE CAPSULE BY MOUTH ONCE DAILY alendronate 70 mg tablet PO ondansetron 4 mg tablet,disintegrating 4 mg PO Q8H PRN (Reason: nausea and vomiting) Qty: 10 0RF cholecalciferol (vitamin D3) [Vitamin D3] 25 mcg (1,000 unit) Tablet 25 mcg PO DAILY aspirin [Children's Aspirin] 81 mg Tablet,Chewable 81 mg PO DAILY@0800 30 Days Qty: 30 0RF albuterol sulfate 2.5 mg /3 mL (0.083 %) solution for nebulization 2.5 mg inhalation Q4-6H PRN (Reason: shortness of breath or wheezing) Qty: 180 0RF albuterol sulfate 90 mcg/actuation HFA aerosol inhaler 2 inh inhalation Q4-6H PRN (Reason: shortness of breath or wheezing) Qty: 8.5 3RF fluticasone furoate-vilanterol [Breo Ellipta] 200-25 mcg/dose blister with device 1 inh inhalation DAILY Qty: 60 6RF lovastatin 20 mg tablet See Rx Instructions .ROUTE .COMPLEX Qty: 180 2RF Dose Instruction: TAKE TWO TABLETS BY MOUTH DAILY WITH EVENING MEAL Rx Instructions: TAKE TWO TABLETS BY MOUTH DAILY WITH EVENING MEAL escitalopram oxalate 5 mg tablet See Rx Instructions .ROUTE .COMPLEX Qty: 90 1RF Dose Instruction: TAKE 1 TABLET BY MOUTH EVERY DAY Rx Instructions: TAKE 1 TABLET BY MOUTH EVERY DAY azithromycin 250 mg tablet See Rx Instructions PO .COMPLEX Qty: 6 0RF Rx Instructions: For 250 mg dose pack: take 500 mg today (day 1), then 250 mg for 4 days (days 2-5) PO Breztri Aerosphere 160-9-4.8 mcg/actuation HFA aerosol inhaler 2 inh inhalation BID Qty: 5.9 1RF Follow-up/Referrals: Obdulio Machuca MD [Primary Care Provider] - Time of Disposition: 05:46
[2024-09-22 03:38] LABS: Influenza A QL RT-PCR Positive (Negative); Influenza B QL RT-PCR Negative (Negative); RSV RNA, RT-PCR Negative (Negative); SARS-CoV-2 RNA PCR Negative (Negative)
[2024-09-22 03:43] LABS: NT Pro B Type Natriuretic Pept 35 pg/mL (19.9-100); Troponin I 0.025 ng/mL (0.000-0.034)
--- OUTSIDE RECORDS SUMMARY | 2024-09-22 03:46 | XMS_ITS | Data Portability ---
Author Organization [facility] Address [address] [place] [address] Assessment No assessment recorded. Plan of Treatment Reminders Order Date Submit Date Provider Last Modified By Organization Details Last Modified Time Details Appointments None recorded. Lab lipid panel, serum 2016 017 [facility], [address] [place], [place] [address]todd Lino, [address], [place], [address], 7 06:14:21 CMP, serum or plasma 2016 017 [facility], [address] [place], [place] [address]nakul Holland, [address], [place], [address], 7 06:14:21 CK (creatine kinase), total, serum [address] [facility], [address] [place] [address], [address], [place], [address], 7 06:14:22 rapid strep group A, throat 2016 017 [email or web address] In-Office Order, Internal Use Only DO Not Attach Compendium DO Not Attach Compendium, Do Not Delete/merge, [id number] 7 17:04:45 culture, urine 2015 016 [facility], [address] [place], [place] [address]nakul Lino, [address], [place], [address], 6 06:14:25 lipid panel, serum 2015 016 ANN HAYDEN, Isma Lino, [address], [place], [address], 6 06:18:16 CK (creatine kinase), total, serum 2015 016 ANN HAYDEN, Isma rebecca [address]ino, [address], [place], [address], 6 06:18:18 CMP, serum or plasma 2015 016 ANN HAYDEN, Isma rebecca [address]ino, [address], [place], [address], 6 06:18:15 CBC w/ auto diff 2015 016 [facility] [address], [place], [address], 6 06:18:15 iron + total iron-lakisha ng capacity (TIBC), serum 2015 016 [facility]AYDEN, [facility], [address], [place], [address], 6 06:18:16 vitamin B12 + folate, serum or blood 2015 016 ANN HAYDEN, [facility], [address], [place], [address], 6 06:18:17 HbA1c (hemoglobi n A1c), blood 2015 016 ANN HAYDEN, Isma rebecca [address], [address], [place], [address], 6 06:18:17 pap, IG + HPV, cervical 2014 015 [facility], [address], [address], [place], [address], 5 08:51:18 HSV (1+2) DNA, qual, PCR, unspecifie d specimen 2014 015 [facility], [address], [address], [place], [address], 5 06:10:18 bacterial vaginosis + vaginitis panel, vaginal 2014 015 [facility], [address], [address], [place], [address], 5 06:10:17 urinalysis , dipstick 2014 015 [email or web address] In-Office Order, Internal Use Only DO Not Attach Compendium DO Not Attach Compendium, Do Not Delete/merge, [id number] 5 13:18:39 Referral None recorded. Procedures None recorded. Surgeries None recorded. Imaging MAMMO, screening, digital, bilateral 2014 015 [email or web address] Not available 5 13:32:46 Medication Orders omeprazole 20 mg capsule,de layed release 2016 017 [facility] [address], [address], 7 10:49:06 azithromyc in 250 mg tablet 2016 017 [facility] [address], [address], 7 10:46:49 ibuprofen 800 mg tablet 2016 017 [facility] [address], [address], 7 10:46:49 phenazopyr idine 200 mg tablet 2015 016 [email or web address] 6 [facility] [address], [address], 6 10:30:46 fluconazol e 150 mg tablet 2015 016 [facility] [address], [address], 6 10:30:51 ranitidine 150 mg tablet 2015 016 [email or web address] 6 [facility] [address], [address], 6 11:06:28 Qvar 80 mcg/actuat ion Metered Aerosol oral inhaler 2015 016 [email or web address] 6 [facility] [address], [address], 6 11:06:28 Ventolin HFA 90 mcg/actuat ion aerosol inhaler 2015 016 [email or web address] 6 [facility] [address], [address], 6 11:06:28 Symbicort 160 mcg-4.5 mcg/actuat ion HFA aerosol inhaler 2015 016 [email or web address] 6 [facility] [address], [address], 6 11:06:28 lovastatin 20 mg tablet 2015 016 [email or web address] 6 [facility] [address], [address], 6 11:06:27 nicotine (polacrile x) 4 mg gum 2014 015 [facility] [address], [address], 5 13:19:15 prednisone 20 mg tablet 2014 015 [email or web address] 6 [facility] [address], [address], 5 13:19:14 Ventolin HFA 90 mcg/actuat ion aerosol inhaler 2014 015 [email or web address] 6 [facility] [address], [address], 5 13:19:14 Qvar 80 mcg/actuat ion Metered Aerosol oral inhaler 2014 015 [email or web address] 6 [facility] [address], [address], 5 13:19:14 Patient TargetsNo targets recorded. Patient InstructionsNo instructions recorded. Reason for Referral None Reported. Results Created Date Observation Date Name Description Value Unit Range Abnormal Flag Note LastModifiedBy Organization Detail LastModifiedTime 10/06/19 17 10/05/2016 rapid strep group A, throa t Strep positi ve Not Available In-Office Order Internal Use Only DO Not Attach Compendium DO Not Attach Compendium, Do Not Delete/merge, [id number] 10/05/2016 10:36:24 07/25/19 15 07/25/2014 urina lysis , dipst ick Leukocytes Negati ve Not Available In-Office Order Internal Use Only DO Not Attach Compendium DO Not Attach Compendium, Do Not Delete/merge, [id number] 07/25/2014 12:41:47 07/25/19 15 07/25/2014 urina lysis , dipst ick Nitrite negati ve Not Available In-Office Order Internal Use Only DO Not Attach Compendium DO Not Attach Compendium, Do Not Delete/merge, [id number] 07/25/2014 12:41:47 07/25/19 15 07/25/2014 urina lysis , dipst ick Urobilinogen .2 Not Available In-Of fice Order Internal Use Only DO Not Attach Compendium DO Not Attach Compendium, Do Not Delete/merge, 07/25/2014 12:41:47 07/25/19 15 07/25/2014 urina lysis , dipst ick Protein Negati ve Not Available In-Office Order Internal Use Only DO Not Attach Compendium DO Not Attach Compendium, Do Not Delete/merge, 07/25/2014 12:41:47 07/25/19 15 07/25/2014 urina lysis , dipst ick pH 7.0 Not Available In-Office Order Internal Use Only DO Not Attach Compendium DO Not Attach Compendium, Do Not Delete/merge, 07/25/2014 12:41:47 07/25/19 15 07/25/2014 urina lysis , dipst ick Blood Non-He molyze d: Trace Not Available In-Office Order Internal Use Only DO Not Attach Compendium DO Not Attach Compendium, Do Not Delete/merge, 07/25/2014 12:41:47 07/25/19 15 07/25/2014 urina lysis , dipst ick Specific [place] 1.010 Not Available In-Off ice Order Internal Use Only DO Not Attach Compendium DO Not Attach Compendium, Do Not Delete/merge, 07/25/2014 12:41:47 07/25/19 15 07/25/2014 urina lysis , dipst ick Ketone Negati ve Not Available In-Office Order Internal Use Only DO Not Attach Compendium DO Not Attach Compendium, Do Not Delete/merge, 07/25/2014 12:41:47 07/25/19 15 07/25/2014 urina lysis , dipst ick Bilirubin Negati ve Not Available In-Office Order Internal Use Only DO Not Attach Compendium DO Not Attach Compendium, Do Not Delete/merge, 07/25/2014 12:41:47 07/25/19 15 07/25/2014 urina lysis , dipst ick Glucose Negati ve Not Available In-Office Order Internal Use Only DO Not Attach Compendium DO Not Attach Compendium, Do Not Delete/merge, [id number] 07/25/2014 12:41:47 07/25/19 15 07/25/2014 urina lysis , dipst ick Appearance Cloudy Not Available In-Offi ce Order Internal Use Only DO Not Attach Compendium DO Not Attach Compendium, Do Not Delete/merge, [id number] 07/25/2014 12:41:47 07/25/19 15 07/25/2014 urina lysis , dipst ick Color Yellow Not Available In-Office Order Internal Use Only DO Not Attach Compendium DO Not Attach Compendium, Do Not Delete/merge, [id number] 07/25/2014 12:41:47 07/25/19 15 07/28/2014 bacte rial vagin osis + vagin itis panel , vagin al chlamydia trachomatis, TOPHER NEGATI VE negati ve Not Available [facility] ([facility]) [address] [place], [address], 07/31/2014 06:10:17 07/25/19 15 07/28/2014 bacte rial vagin osis + vagin itis panel , vagin al neisseria gonorrhoeae, TOPHER NEGATI VE negati ve Not Available [facility] ([facility]) [address] [place], [address], 07/31/2014 06:10:17 07/25/19 15 07/29/2014 bacte rial vagin osis + vagin itis panel , vagin al trich vag by TOPHER NEGATI VE negati ve Not Available [facility] ([facility]) [address] [place], [address], 07/31/2014 06:10:17 07/25/19 15 07/30/2014 bacte rial vagin osis + vagin itis panel , vagin al lora albicans, TOPHER NEGATI VE negati ve Not Available [facility] ([facility]) [address] [place], [address], 07/31/2014 06:10:17 07/25/19 15 07/30/2014 bacte rial vagin osis + vagin itis panel , vagin al lora glabrata, TOPHER NEGATI VE negati ve THIS TEST WAS DEVEL OPED AND ITS PERFO RMANC E RACHAEL CTERI STICS DETER MINED BY [employer]. IT HAS NOT BEEN CLEAR ED OR APPRO ABHI BY THE FOOD AND DRUG ADMIN ISTRA TION. THE FDA HAS DETER MINED THAT SUCH CLEAR ANCE OR APPRO LUCINDA IS NOT NECES CHINMAY. Not Available [facility] ([facility]) [address] [place], [address], 07/31/2014 06:10:17 07/25/19 15 07/31/2014 bacte rial vagin osis + vagin itis panel , vagin al atopobium vaginae LOW - 0 score Not Available [facility] ([facility]) [address] [place], [address], 07/31/2014 06:10:17 07/25/19 15 07/31/2014 bacte rial vagin osis + vagin itis panel , vagin al bvab 2 LOW - 0 score Not Available [facility] ([facility]) [address] [place], [address], 07/31/2014 06:10:17 07/25/19 15 07/31/2014 bacte rial vagin osis + vagin itis panel , vagin al megasphaera 1 LOW - 0 score CALCU LATE TOTAL SCORE BY MARLY G THE 3 INDIV IDUAL BACTE RIAL VAGIN OSIS (BV) MARKE R SCORE S TOGET HER. TOTAL SCORE IS INTER PRETE D FOLLO WS: . TOTAL SCORE 0-1: INDIC ATES THE ABSEN CE OF BV. TOTAL SCORE 2: INDET ERMIN ATE FOR BV. ADDIT IONAL CLINI SANDI DATA SHOUL D BE EVALU ATED TO ESTAB JOSEPH A DIAGN OSIS. TOTAL SCORE 3-6: INDIC ATES THE PRESE NCE OF BV. . THIS TEST WAS DEVEL OPED AND ITS PERFO RMANC E RACHAEL CTERI STICS DETER MINED BY [employer]. IT HAS NOT BEEN CLEAR ED OR APPRO ABHI BY THE FOOD AND DRUG ADMIN ISTRA TION. THE FDA HAS DETER MINED THAT SUCH CLEAR ANCE OR APPRO LUCINDA IS NOT SURAJ MOY. Not Available [facility] ([facility]) [address] [facility], [place], [address], 07/31/2014 06:10:17 07/25/19 15 07/29/2014 HSV (1+2) DNA, qual, PCR, unspe cifie d speci men hsv 1 TOPHER NEGATI VE negati ve Not Available [facility] ([facility]) [address] [place], [address], 07/31/2014 06:10:18 07/25/19 15 07/29/2014 HSV (1+2) DNA, qual, PCR, unspe cifie d speci men hsv 2 TOPHER NEGATI VE negati ve Not Available [facility] ([facility]) [address] [facility], [place], [address], 07/31/2014 06:10:18 07/25/19 15 07/29/2014 pap, IG + HPV, cervi sandi diagnosis: COMMEN T NEGAT IAN FOR INTRA EPITH ELIAL LESIO N AND STEPHANIE HERNÁNDEZ . Not Available [facility] ([facility]) [address] [facility], [place], [address], 07/31/2014 08:51:17 07/25/1907/29/2014 pap, IG + HPV, cervi sandi specimen adequacy: COMMEN T SATIS FACTO RY FOR EVALU ATION . NO ENDOC ERVIC AL COMPO NENT IS IDENT IFIED . Not Available [facility] ([facility]) [address] [place], [address], 07/31/2014 08:51:17 07/25/19 15 07/29/2014 pap, IG + HPV, cervi sandi clinician provided ICD9: COMMEN T V72.3 1 ; ROUTI NE GYNEC OLOGI SANDI EXAMI NATIO N Not Available [facility] ([facility]) [address] [place], [address], 07/31/2014 08:51:17 07/25/19 15 07/29/2014 pap, IG + HPV, cervi sandi performed by: RONNIE ASHLEY , ADRIÁN Virk (ASCP ) Not Available [facility] ([facility]) [address] [place], [address], 07/31/2014 08:51:17 07/25/19 15 07/29/2014 pap, IG + HPV, cervi sandi . . Not Available [facility] ([facility]) [address] [place], [address], 07/31/2014 08:51:17 07/25/19 15 07/29/2014 pap, IG + HPV, cervi sandi note: RONNIE Virk THE PAP SMEAR IS A SCREE ELIUD TEST DESCATRACHITO VIDESD TO AID IN THE DETEC TION OF DELGADO LIGNA NT AND MALIG NANT CONDI TIONS OF THE UTERI NE CERVI X. IT IS NOT A DIAGN OSTIC PROCE DURE AND SHOUL D NOT BE USED THE SOLE MEANS OF DETEC TING CERVI SANDI CANCE R. BOTH FALSE -POSI TIVE AND FALSE -NEGA TIVE REPOR TS DO OCCUR . . Not Available [facility] ([facility]) [address] [place], [address], 07/31/2014 08:51:17 07/25/19 15 07/29/2014 pap, IG + HPV, cervi sandi test methodology: RONNIE Virk THIS LIQUI D BASED THINP REP(R ) PAP TEST WAS SCREE LUIS WITH THE USE OF AN IMAGE GUIDE Debra Pisano. Not Available [facility] ([facility]) [address] [place], [address], 07/31/2014 08:51:17 07/25/19 15 07/31/2014 pap, IG + HPV, cervi sandi HPV aptima NEGATI VE negati ve THIS TEST DETEC TS FOURT EEN HIGH- RISK HPV TYPES (16/1 8/31/ 33/35 /39/4 5/ 51/52 /56/5 8/59/ 66/68 ) WITHO KALEIGH CHOI . Not Available [facility] ([facility]) [address] [facility], [place], [address], 07/31/2014 08:51:17 12/29/19 16 12/30/2015 CBC w/ auto diff WBC 7.3 x10e3 /uL 3.4-10 .8 Not Available [facility] ([facility]) [address] [place], [address], 12/30/2015 06:18:15 12/29/19 16 12/30/2015 CBC w/ auto diff RBC 4.36 x10e6 /uL 3.77-5 .28 Not Available [facility] ([facility]) [address] [place], [address], 12/30/2015 06:18:15 12/29/19 16 12/30/2015 CBC w/ auto diff hemoglobin 13.0 g/dL 11.1-1 5.9 Not Available [facility] ([facility]) [address] [place], [address], 12/30/2015 06:18:15 12/29/19 16 12/30/2015 CBC w/ auto diff hematocrit 38.8 % 34.0-4 6.6 Not Available [facility] ([facility]) [address] [place], [address], 12/30/2015 06:18:15 12/29/19 16 12/30/2015 CBC w/ auto diff MCV 89 fL 79-97 Not Available [facility] ([facility]) [address] [place], [address], 12/30/2015 06:18:15 12/29/19 16 12/30/2015 CBC w/ auto diff MCH 29.8 pg 26.6-3 3.0 Not Available [facility] ([facility]) [address] [facility], [place], [address], 12/30/2015 06:18:15 12/29/19 16 12/30/2015 CBC w/ auto diff MCHC 33.5 g/dL 31.5-3 5.7 Not Available [facility] ([facility]) [address] [facility], [place], [address], 12/30/2015 06:18:15 12/29/19 16 12/30/2015 CBC w/ auto diff RDW 14.1 % 12.3-1 5.4 Not Available [facility] ([facility]) [address] [facility], [place], [address], 12/30/2015 06:18:15 12/29/19 16 12/30/2015 CBC w/ auto diff platelets 210 x10e3 /uL 150-37 9 Not Available [facility] ([facility]) [address] [facility], [place], [address], 12/30/2015 06:18:15 12/29/19 16 12/30/2015 CBC w/ auto diff neutrophils 41 % Not Available [facility] ([facility]) [address] [facility], [place], [address], 12/30/2015 06:18:15 12/29/19 16 12/30/2015 CBC w/ auto diff lymphs 51 % Not Available [facility] ([facility]) [address] [facility], [place], [address], 12/30/2015 06:18:15 12/29/19 16 12/30/2015 CBC w/ auto diff monocytes 6 % Not Available [facility] ([facility]) [address] [place], [address], 12/30/2015 06:18:15 12/29/19 16 12/30/2015 CBC w/ auto diff eos 2 % Not Available [facility] ([facility]) [address] [place], [address], 12/30/2015 06:18:15 12/29/19 16 12/30/2015 CBC w/ auto diff basos 0 % Not Available [facility] ([facility]) [address] [place], [address], 12/30/2015 06:18:15 12/29/19 16 12/30/2015 CBC w/ auto diff immature cells FORM TAMPER OPERATOR Not Available [facility] ([facility]) [address] [place], [address], 12/30/2015 06:18:15 12/29/19 16 12/30/2015 CBC w/ auto diff neutrophils (absolute) 3.0 x10e3 /uL 1.4-7. 0 Not Available [facility] ([facility]) [address] [place], [address], 12/30/2015 06:18:15 12/29/19 16 12/30/2015 CBC w/ auto diff lymphs (absolute) 3.6 x10e3 /uL 0.7-3. 1 above high normal Not Available [facility] ([facility]) [address] [place], [address], 12/30/2015 06:18:15 12/29/19 16 12/30/2015 CBC w/ auto diff monocytes(ab solute) 0.5 x10e3 /uL 0.1-0. 9 Not Available [facility] ([facility]) [address] [place], [address], 12/30/2015 06:18:15 12/29/19 16 12/30/2015 CBC w/ auto diff eos (absolute) 0.2 x10e3 /uL 0.0-0. 4 Not Available [facility] ([facility]) [address] [place], [address], 12/30/2015 06:18:15 12/29/19 16 12/30/2015 CBC w/ auto diff baso (absolute) 0.0 x10e3 /uL 0.0-0. 2 Not Available [facility] ([facility]) [address] [facility] [place], [address], 12/30/2015 06:18:15 12/29/19 16 12/30/2015 CBC w/ auto diff immature granulocytes 0 % Not Available [facility] ([facility]) [address] [facility] [place], [address], 12/30/2015 06:18:15 12/29/19 16 12/30/2015 CBC w/ auto diff immature grans (abs) 0.0 x10e3 /uL 0.0-0. 1 Not Available [facility] ([facility]) [address] [facility] [place], [address], 12/30/2015 06:18:15 12/29/19 16 12/30/2015 CBC w/ auto diff NRBC FORM TAMPER OPERATOR Not Available [facility] ([facility]) [address] [place], [address], 12/30/2015 06:18:15 12/29/19 16 12/30/2015 CBC w/ auto diff hematology comments: FORM TAMPER OPERATOR Not Available [facility] ([facility]) [address] [facility], [place], [address], 12/30/2015 06:18:15 12/29/19 16 12/30/2015 CMP, serum or plasm a glucose, serum 92 mg/dL 65-99 Not Available [facility] ([facility]) [address] [place], [address], 12/30/2015 06:18:15 12/29/19 16 12/30/2015 CMP, serum or plasm a BUN 21 mg/dL 6-24 Not Available [facility] ([facility]) [address] [place], [address], 12/30/2015 06:18:15 12/29/19 16 12/30/2015 CMP, serum or plasm a creatinine, serum 0.80 mg/dL 0.57-1 .00 Not Available [facility] ([facility]) [address] [facility] [place], [address], 12/30/2015 06:18:15 12/29/19 16 12/30/2015 CMP, serum or plasm a eGFR if nonafricn AM 83 mL/mi n/1.7 3 >59 Not Available [facility] ([facility]) [address] [facility] [place], [address], 12/30/2015 06:18:15 12/29/19 16 12/30/2015 CMP, serum or plasm a eGFR if africn AM 96 mL/mi n/1.7 3 >59 Not Available [facility] ([facility]) [address] [facility] [place], [address], 12/30/2015 06:18:15 12/29/19 16 12/30/2015 CMP, serum or plasm a BUN/creatini ne ratio 26 9-23 above high normal Not Available [facility] ([facility]) [address] [facility] [place], [address], 12/30/2015 06:18:15 12/29/19 16 12/30/2015 CMP, serum or plasm a sodium, serum 141 mmol/ L 134-14 4 Not Available [facility] ([facility]) [address] [facility] [place], [address], 12/30/2015 06:18:15 12/29/19 16 12/30/2015 CMP, serum or plasm a potassium, serum 4.3 mmol/ L 3.5-5. 2 Not Available [facility] ([facility]) [address] [facility] [place], [address], 12/30/2015 06:18:15 12/29/19 16 12/30/2015 CMP, serum or plasm a chloride, serum 104 mmol/ L 97-108 Not Available [facility] ([facility]) [address] [facility] [place], [address], 12/30/2015 06:18:15 12/29/19 16 12/30/2015 CMP, serum or plasm a carbon dioxide, total 22 mmol/ L 18- Not Available [facility] ([facility]) [address] [facility] [place], [address], 12/30/2015 06:18:15 12/29/19 16 12/30/2015 CMP, serum or plasm a calcium, serum 8.7 mg/dL 8.7-10 .2 Not Available [facility] ([facility]) [address] [facility] [place], [address], 12/30/2015 06:18:15 12/29/19 16 12/30/2015 CMP, serum or plasm a protein, total, serum 6.7 g/dL 6.0-8. 5 Not Available [facility] ([facility]) [address] [place], [address], 12/30/2015 06:18:15 12/29/19 16 12/30/2015 CMP, serum or plasm a albumin, serum 4.3 g/dL 3.5-5. 5 Not Available [facility] ([facility]) [address] [place], [address], 12/30/2015 06:18:15 12/29/19 16 12/30/2015 CMP, serum or plasm a globulin, total 2.4 g/dL 1.5-4. 5 Not Available [facility] ([facility]) [address] [place], [address], 12/30/2015 06:18:15 12/29/19 16 12/30/2015 CMP, serum or plasm a A/G ratio 1.8 1.1-2. 5 Not Available [facility] ([facility]) [address] [place], [address], 12/30/2015 06:18:15 12/29/19 16 12/30/2015 CMP, serum or plasm a bilirubin, total 1.2 mg/dL 0.0-1. 2 Not Available [facility] ([facility]) [address] [facility] [place], [address], 12/30/2015 06:18:15 12/29/19 16 12/30/2015 CMP, serum or plasm a alkaline phosphatase, S 67 IU/L 39-117 Not Available [facility] ([facility]) [address] [facility] [place], [address], 12/30/2015 06:18:15 12/29/19 16 12/30/2015 CMP, serum or plasm a AST (SGOT) 29 IU/L 0-40 Not Available [facility] ([facility]) [address] [facility] [place], [address], 12/30/2015 06:18:15 12/29/19 16 12/30/2015 CMP, serum or plasm a ALT (SGPT) 28 IU/L 0-32 Not Available [facility] ([facility]) [address] [facility] [place], [address], 12/30/2015 06:18:15 12/29/19 16 12/30/2015 lipid panel , serum cholesterol, total 241 mg/dL 100-19 9 above high normal Not Available [facility] ([facility]) [address] [facility] [place], [address], 12/30/2015 06:18:16 12/29/19 16 12/30/2015 lipid panel , serum triglyceride s 155 mg/dL 0-149 above high normal Not Available [facility] ([facility]) [address] [facility] [place], [address], 12/30/2015 06:18:16 12/29/19 16 12/30/2015 lipid panel , serum HDL cholesterol 56 mg/dL >39 ACCOR DING TO ATP-I II GUIDE LINES , HDL-C >59 MG/DL IS CONSI DERED A NEGAT IAN RISK FACTO R FOR CHD. Not Available [facility] ([facility]) [address] [facility], [place], [address], 12/30/2015 06:18:16 12/29/19 16 12/30/2015 lipid panel , serum VLDL cholesterol sandi 31 mg/dL 5-40 Not Available [facility] ([facility]) [address] [facility] [place], [address], 12/30/2015 06:18:16 12/29/19 16 12/30/2015 lipid panel , serum LDL cholesterol calc 154 mg/dL 0-99 above high normal Not Available [facility] ([facility]) [address] [facility] [place], [address], 12/30/2015 06:18:16 12/29/19 16 12/30/2015 lipid panel , serum comment: FORM TAMPER OPERATOR Not Available [facility] ([facility]) [address] [facility], [place], [address], 12/30/2015 06:18:16 12/29/19 16 12/30/2015 lipid panel , serum LDL/HDL ratio 2.8 ratio _unit s 0.0-3. 2 LDL/H DL RATIO MEN WOMEN 1/2 AVG.R ISK 1.0 1.5 AVG.R ISK 3.6 3.2 2X AVG.R ISK 6.2 5.0 3X AVG.R ISK 8.0 6.1 Not Available [facility] ([facility]) [address] [facility], [place], [address], 12/30/2015 06:18:16 12/29/19 16 12/30/2015 iron + total iron- lakisha ng capac ity (TIBC ), serum iron bind.cap.(TI BC) 314 ug/dL 250-45 0 Not Available [facility] ([facility]) [address] [facility], [place], [address], 12/30/2015 06:18:16 12/29/19 16 12/30/2015 iron + total iron- lakisha ng capac ity (TIBC ), serum UIBC 230 ug/dL 131-42 5 Not Available [facility] ([facility]) [address] [place], [address], 12/30/2015 06:18:16 12/29/19 16 12/30/2015 iron + total iron- lakisha ng capac ity (TIBC ), serum iron, serum 84 ug/dL 27-159 Not Available [facility] ([facility]) [address] [place], [address], 12/30/2015 06:18:16 12/29/19 16 12/30/2015 iron + total iron- lakisha ng capac ity (TIBC ), serum iron saturation 27 % 15-55 Not Available [facility] ([facility]) [address] [place], [address], 12/30/2015 06:18:16 12/29/19 16 12/30/2015 vitam in B12 + folat e, serum or blood vitamin B12 556 pg/mL 211-94 6 Not Available [facility] ([facility]) [address] [place], [address], 12/30/2015 06:18:17 12/29/19 16 12/30/2015 vitam in B12 + folat e, serum or blood folate (folic acid), serum 13.0 NG/mL >3.0 A SERUM FOLAT E EMILY NTRAT ION OF LESS THAN 3.1 NG/ML IS CONSI DERED TO REPRE SENT CLINI SANDI DEFIC IENCY . Not Available [facility] ([facility]) [address] [place], [address], 12/30/2015 06:18:17 12/29/19 16 12/30/2015 HbA1c (hemo globi n A1c), blood hemoglobin A1C 5.7 % 4.8-5. 6 above high normal PRE-D IABET ES: 5.7 - 6.4 DIABE MORENITA: >6.4 GLYCE OSWALDO CONTR OL FOR ADULT S WITH DIABE MORENITA: <7.0 Not Available [facility] ([facility]) [address] [place], [address], 12/30/2015 06:18:17 12/29/19 16 12/30/2015 CK (crea chan kinas e), total , serum creatine kinase,total ,serum 143 U/L 24-173 Not Available [facility] ([facility]) [address] [place], [address], 12/30/2015 06:18:18 01/28/20 16 01/29/2016 cultu re, urine urine culture, routine FINAL REPORT Not Available [facility] ([facility]) [address] [place], [address], 01/30/2016 06:14:25 01/28/20 16 01/29/2016 cultu re, urine result 1 COMMEN T MIXED UROGE NITAL KESHIA LESS THAN 10,00 0 COLON IES/M L Not Available [facility] ([facility]) [address] [place], [address], 01/30/2016 06:14:25 10/21/19 17 10/21/2016 CMP, serum or plasm a glucose, serum 93 mg/dL 65-99 Not Available [facility] ([facility]) [address] [place], [address], 10/21/2016 06:14:21 10/21/19 17 10/21/2016 CMP, serum or plasm a BUN 23 mg/dL 6-24 Not Available [facility] ([facility]) [address] [place], [address], 10/21/2016 06:14:21 10/21/19 17 10/21/2016 CMP, serum or plasm a creatinine, serum 0.84 mg/dL 0.57-1 .00 Not Available [facility] ([facility]) [address] [place], [address], 10/21/2016 06:14:21 10/21/19 17 10/21/2016 CMP, serum or plasm a eGFR if nonafricn AM 78 mL/mi n/1.7 3 >59 Not Available [facility] ([facility]) [address] [place], [address], 10/21/2016 06:14:21 10/21/19 17 10/21/2016 CMP, serum or plasm a eGFR if africn AM 90 mL/mi n/1.7 3 >59 Not Available [facility] ([facility]) [address] [place], [address], 10/21/2016 06:14:21 10/21/19 17 10/21/2016 CMP, serum or plasm a BUN/creatini ne ratio 27 9-23 above high normal Not Available [facility] ([facility]) [address] [place], [address], 10/21/2016 06:14:21 10/21/19 17 10/21/2016 CMP, serum or plasm a sodium, serum 139 mmol/ L 134-14 4 Not Available [facility] ([facility]) [address] [place], [address], 10/21/2016 06:14:21 10/21/19 17 10/21/2016 CMP, serum or plasm a potassium, serum 4.6 mmol/ L 3.5-5. 2 Not Available [facility] ([facility]) [address] [place], [address], 10/21/2016 06:14:21 10/21/19 17 10/21/2016 CMP, serum or plasm a chloride, serum 101 mmol/ L 96-106 Not Available [facility] ([facility]) [address] [place], [address], 10/21/2016 06:14:21 10/21/19 17 10/21/2016 CMP, serum or plasm a carbon dioxide, total 23 mmol/ L 18-29 Not Available [facility] ([facility]) [address] [place], [address], 10/21/2016 06:14:21 10/21/19 17 10/21/2016 CMP, serum or plasm a calcium, serum 9.1 mg/dL 8.7-10 .2 Not Available [facility] ([facility]) [address] [place], [address], 10/21/2016 06:14:21 10/21/19 17 10/21/2016 CMP, serum or plasm a protein, total, serum 7.0 g/dL 6.0-8. 5 Not Available [facility] ([facility]) [address] [place], [address], 10/21/2016 06:14:21 10/21/19 17 10/21/2016 CMP, serum or plasm a albumin, serum 4.3 g/dL 3.5-5. 5 Not Available [facility] ([facility]) [address] [place], [address], 10/21/2016 06:14:21 10/21/19 17 10/21/2016 CMP, serum or plasm a globulin, total 2.7 g/dL 1.5-4. 5 Not Available [facility] ([facility]) [address] [place], [address], 10/21/2016 06:14:21 10/21/19 17 10/21/2016 CMP, serum or plasm a A/G ratio 1.6 1.2-2. 2 Not Available [facility] ([facility]) [address] [place], [address], 10/21/2016 06:14:21 10/21/19 17 10/21/2016 CMP, serum or plasm a bilirubin, total 1.2 mg/dL 0.0-1. 2 Not Available [facility] ([facility]) [address] [place], [address], 10/21/2016 06:14:21 10/21/19 17 10/21/2016 CMP, serum or plasm a alkaline phosphatase, S 73 IU/L 39-117 Not Available [facility] ([facility]) [address] [place], [address], 10/21/2016 06:14:21 10/21/19 17 10/21/2016 CMP, serum or plasm a AST (SGOT) 22 IU/L 0-40 Not Available [facility] ([facility]) [address] [place], [address], 10/21/2016 06:14:21 10/21/19 17 10/21/2016 CMP, serum or plasm a ALT (SGPT) 22 IU/L 0-32 Not Available [facility] ([facility]) [address] [place], [address], 10/21/2016 06:14:21 10/21/19 17 10/21/2016 lipid panel , serum cholesterol, total 175 mg/dL 100-19 9 Not Available [facility] ([facility]) [address] [place], [address], 10/21/2016 06:14:21 10/21/19 17 10/21/2016 lipid panel , serum triglyceride s 133 mg/dL 0-149 Not Available [facility] ([facility]) [address] [place], [address], 10/21/2016 06:14:21 10/21/19 17 10/21/2016 lipid panel , serum HDL cholesterol 53 mg/dL >39 Not Available [facility] ([facility]) [address] [place], [address], 10/21/2016 06:14:21 10/21/19 17 10/21/2016 lipid panel , serum VLDL cholesterol sandi 27 mg/dL 5-40 Not Available [facility] ([facility]) [address] [place], [address], 10/21/2016 06:14:21 10/21/19 17 10/21/2016 lipid panel , serum LDL cholesterol calc 95 mg/dL 0-99 Not Available [facility] ([facility]) [address] [facility], [place], [address], 10/21/2016 06:14:21 10/21/19 17 10/21/2016 lipid panel , serum comment: 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 2 LDL/H DL RATIO MEN WOMEN 1/2 AVG.R ISK 1.0 1.5 AVG.R ISK 3.6 3.2 2X AVG.R ISK 6.2 5.0 3X AVG.R ISK 8.0 6.1 Not Available [facility] ([facility]) [address] [facility], [place], [address], 10/21/2016 06:14:21 10/21/19 17 10/21/2016 CK (crea chan kinas e), total , serum creatine kinase,total ,serum 174 U/L 24-173 above high normal Not Available [facility] ([facility]) [address] [facility], [place], [address], 10/21/2016 06:14:22 08/12/19 15 08/10/2014 MAMMO , scree eliud, digit al, bilat eral No observ ation record ed. [email or web address] Not Available 2014 11:35:49 01/24/20 15 01/23/2015 imagi ng/di agnos tic resul t No observ ation record ed. [email or web address] Not Available 04/03 13:15:39 Result Notes None recorded. Problems Name Problem SNOMED Code Status Onset Date Resolution Date Notes Provider Name and Address Organization Details Recorded Time Sinusitis 78256959 Active Yu Mendoza LPN null, [place] - [facility] 6 11:49:03 Chronic obstructive pulmonary disease 26125931 Active David Felder PA-C Attn: Accountin g,[address] [facility], [place], [address], [place] - [facility] 6 11:06:27 Tobacco user 544351710 Active Yu Mendoza LPN [place] [facility] 6 11:49:03 Upper respiratory infection 79477026 Active Yu Mendoza LPN [place], [place] [facility] 6 11:49:03 Gastroesophage al reflux disease 173343609 Active David Felder PA-C Attn: Accountin g,[address] [facility], [place], [address], [place] - [facility] 6 11:06:27 Hyperlipidemia 92151999 Active David Felder PA-C Attn: Accountin g,[address] [facility], [place], [address], [place] - [facility] 6 11:06:27 Fatigue 88020273 Active David Felder PA-C Attn: Accountin g,[address] [facility], [place], [address], [place] [facility] 6 11:06:27 Acute urinary tract infection 956327490 Active David Felder PA-C Attn: Accountin g,[address] [facility], [place], [address], [place] - [facility] 6 10:30:45 Problem Notes None recorded. Procedures Surgical History Date Name Laterality Status Provider Name and Address Organization Details Recorded Time 0 Date of Last Pap Smear completed Milagro Martinez [place] - [facility] 07/25/2014 12:18:08 0 Most Recent Mammogram completed Milagro Martinez [place] - [facility] 07/25/2014 12:18:08 Imaging Results Imaging Date Name Status [facility]Modified by [facility] Details LastModified Time 08/10/2014 MAMMO, screening, digital, bilateral completed [email or web address] Information not available 09/19/2014 11:35:49 01/23/2015 imaging/diagno stic result completed [email or web address] Information not available 04/18/2015 13:15:39 Procedure Notes None recorded. Medical Equipment None Reported. Allergies Allergen ID Allergen Name Allergen Category Reaction Reaction Severity Criticality Documentation Date Start Date Code Code System Note Provider Name and Address Organization Details Recorded Time Product containin g penicilli n (product) medicatio n nausea severe Not available 07/25/2014 [id number] SNOMED pt state s turns red Not Available Not Available Not Available Medications Name Sig Start Date Stop Date Status Note LastModified by Organization Details LastModified Time Qvar 80 mcg/actuati on Metered Aerosol oral inhaler Inhale 2 puffs twice a day by inhalatio n route for 30 days. 2015 active Not Available Not Available Not Avai lable doxycycline hyclate 100 mg capsule Take 1 capsule twice a day by oral route for 10 days. active Not Available Not Available No t Available azithromyci n 250 mg tablet TAKE 2 TABLETS (500 MG) BY ORAL ROUTE ONCE DAILY FOR 1 DAY THEN 1 TABLET (250 MG) BY ORAL ROUTE ONCE DAILY FOR 4 DAYS active Not Available Not Available No t Available ibuprofen 800 mg tablet Take 1 tablet 3 times a day by oral route with meals for 30 days. active Not Available Not Available No t Available fluconazole 150 mg tablet Take 1 tablet 3 times a week by oral route for 7 days. active Not Available Not Available No t Available hydrocodone 5 mg-acetamin ophen 325 mg tablet active Not Available Not Available No t Available ciprofloxac in 500 mg/5 mL oral suspension Take 5 mL every 12 hours by oral route for 10 days. 2014 active Not Available Not Available Not Avai lable phenazopyri dine 200 mg tablet Take 1 tablet 3 times a day by oral route for 1 day. active Not Available Not Available No t Available prednisone 20 mg tablet Take 2 tablets twice a day by oral route as directed for 2 days. active Not Available Not Available No t Available clindamycin HCl 150 mg capsule Take 1 capsule every 6 hours by oral route for 10 days. active Not Available Not Available No t Available Cipro 500 mg tablet Take 1 tablet every 12 hours by oral route for 10 days. 2015 active Not Available Not Available Not Avai lable ranitidine 150 mg tablet Take 1 tablet twice a day by oral route before meals for 30 days. 2015 active Not Available Not Available Not Avai lable omeprazole 20 mg capsule,del ayed release Take 1 capsule every day by oral route before meals for 30 days. active Not Available Not Available No t Available lovastatin 20 mg tablet TAKE TWO TABLETS BY MOUTH ONCE DAILY IN THE EVENING active Not Available Not Available No t Available Ventolin HFA 90 mcg/actuati on aerosol inhaler Inhale 2 puffs 3 times a day by inhalatio n route as needed for 30 days. active Not Available Not Available No t Available azithromyci n 500 mg tablet Take 1 tablet every day by oral route for 5 days. active Not Available Not Available No t Available nitrofurant oin monohydrate /macrocryst als 100 mg capsule active Not Available Not Available Not Available Nicorelief 4 mg gum Chew 1 piece of gum every 2 hours by oral route as needed for 30 days. active Not Available Not Available No t Available Symbicort 160 mcg-4.5 mcg/actuati on HFA aerosol inhaler Inhale 2 puff(s) twice a day by inhalatio n route as directed for 30 days. 2016 active Not Available Not Available Not Avai lable nitrofurant oin 100 mg tablet Take 1 tablet twice a day by oral route for 10 days. 02/04 completed Not Available Not Available Not Available Vitals Date Recorded Body weight Oxygen saturation Oxygen saturation in Arterial blood by Pulse oximetry Body height Body mass index (BMI) Body temperature Heart rate Systolic blood pressure Diastolic blood pressure Provider Name and Address Organization Details Last Updated DateTime 5 11496.8 81300 g 98 % 98 % 165.1 cm 23.7 kg/m2 97.7 [degF] 72 /min 118 mm[Hg] 70 mm[Hg] Africa Estrella [place] - [facility] 5 13:02:43 Date Recorded Body height Body mass index (BMI) Body weight Systolic blood pressure Diastolic blood pressure Provider Name and Address Organization Details Last Updated DateTime 07/25/2014 165.1 cm 23.1 kg/m2 66420.33 943 g 134 mm[Hg] 82 mm[Hg] Milagro Martinez MA [place] - [facility] 5 12:15:58 Date Recorded Body weight Heart rate Oxygen saturation Oxygen saturation in Arterial blood by Pulse oximetry Body temperature Body mass index (BMI) Body height Systolic blood pressure Diastolic blood pressure Provider Name and Address Organization Details Last Updated DateTime 6 98401.5 9446 g 62 /min 99 % 99 % 97.6 [degF] 26.3 kg/m2 165.1 cm 140 mm[Hg] 80 mm[Hg] Africa Estrella MA [facility] 6 10:38:44 Date Recorded Heart rate Body height Oxygen saturation Oxygen saturation in Arterial blood by Pulse oximetry Body temperature Body mass index (BMI) Body weight Systolic blood pressure Diastolic blood pressure Provider Name and Address Organization Details Last Updated DateTime 6 69 /min 165.1 cm 97 % 97 % 98 [degF] 26.4 kg/m2 67838.3 10663 g 130 mm[Hg] 78 mm[Hg] Africa Estrella MA [facility] 6 10:15:00 Date Recorded Body height Body weight Body mass index (BMI) Oxygen saturation Oxygen saturation in Arterial blood by Pulse oximetry Heart rate Systolic blood pressure Diastolic blood pressure Provider Name and Address Organization Details Last Updated DateTime 7 165.1 cm 81176 g 26.1 kg/m2 97 % 97 % 78 /min 138 mm[Hg] 68 mm[Hg] Africa Estrella MA [facility] 7 10:17:30 Social History Question Answer Notes LastModified by Organizat ion Details LastModified Time Tobacco Smoking Status Current Every Day Smoker Milagro Martinez [facility], [facility] 07/25/2014 12:22:44 Do You Have An Advance Directive? No Information not available 07/25/2014 What Is Your Level Of Alcohol Consumption? Occasional Information not available 07/25/2014 Is Blood Transfusion Acceptable In An Emergency? Yes Information not available 07/25/2014 What Is Your Level Of Caffeine Consumption? Occasional Information not available 07/25/2014 How Much Tobacco Do You Chew? None Information not available 07/25/2014 Are You Currently Employed? No Information not available 07/25/2014 What Type Of Diet Are You Following? REGULAR Information not available 07/25/2014 Education 12 Information no t available 07/25/2014 Live Alone Or With Others? Alone Information not available 07/25/2014 How Many Children Do You Have? 1 Information not available 07/25/2014 Performs Monthly Self-breast Exam? No Information no t available 07/25/2014 Do You Use Protection During Sex? Always Information not available 07/25/2014 What Is Your Relationship Status? Single Information not available 07/25/2014 Seat Belts Used Routinely Yes Information not available 07/25/2014 Are You Sexually Active? Yes Information not available 07/25/2014 At What Age Did You Start Smoking Tobacco? 24 Information not available 07/25/2014 How Much Tobacco Do You Smoke? 1 PPD Information not available 07/25/2014 General Stress Level Medium Information not available 07/25/2014 Do You Use Sunscreen Routinely? Yes Information not available 07/25/2014 How Many Years Have You Smoked Tobacco? 30 Information not available 07/25/2014 Sex: Unknown Functional Status Question Answer Note LastModified by Organizat ion Details LastModified Time What is your exercise level? Occasional [email or web address] Information not available 07/25/2014 Mental Status None recorded. Family History Relationship Description Onset Age of this Age Resolved Age Notes LastModified by Organization Details LastModified Time Sister Diabetes mellitus Not available 07/25 12:20:53 Father Diabetes mellitus hypert ension Not available 07/25/2014 12:20:53 Mother History of hypertension Not available 12:20:53 Son Heart disease 35 35 Not available 07/25 12:20:53 Medical History Condition Response Anxiety Disorder Y High Cholesterol Y Gynecological History Statement/Question Response Abnormal Pap N STIs/STDs N HPV Vaccine N Age at Menarche 13 Current Control Method Hysterectom y Most Recent Mammogram 07/04/2009 Age at First Child 23 Sexually Active? Y Menses Monthly N Date of Last Pap Smear 07/04/2009 Sexual Problems? N Obstetrics History GPAL:G 2 P 1 0 1 1 Type Value Full Term 1 Spontaneous 1 Living 1 Total 2 Past Encounters Encounter ID Performer Location Encounter Start Date Encounter Closed Date Diagnosis/Indication Diagnosis SNOMED-CT Code Diagnosis ICD10 Code Diagnosis Note [id number] Kim (GAMING DIRECTOR) [address] [place] [phone] 07/25/2014 11:26:08 07/25/2014 13:32:46 Gynecologic examination [id number] MARYCARMEN Luna (Adult Med) [address] [place] [phone] 04/18/2015 12:05:55 04/21/2015 14:43:14 Chronic obstructive pulmonary disease 48329307 J44.9 Tobacco user 983201727 Z 72.0 [id number] MARYCARMEN Luna (Adult Med) [address] [place] [id number] 12/29/2015 10:09:19 01/01/2016 03:48:13 Gastroesophageal reflux disease 394269717 K21.0 Chronic ob structive pulmonary disease 08006259 J44.9 Hyperlipidemia 78193514 E78.5 Fatigue 13677921 R53.83 [id number] MARYCARMEN Luna (Adult Med) [address] [place] [phone] 01/28/2016 09:45:40 01/28/2016 17:49:40 Acute urinary tract infection 506484801 N39.0 [id number] MARYCARMEN Luna (Adult Med) [address] [place] [id number] 10/05/2016 10:01:52 10/05/2016 17:39:33 Acute pharyngitis 888301361 J02.9 Hyperlipidemia 31183593 E78.5 Gastroesop hageal reflux disease 740747400 K21.0 Tobacco user 246578401 Z 72.0 Health Concerns Section Related Observation LastModified by Organization Detai ls LastModified Time None Recorded Concern Status LastModified by Organization Details LastModified Time None Recorded Advance Directives Directive N: Payers Encounter Date Sequence Insurance Name Policy Number Policy Melgar Covered Member ID Melgar Member ID Guarantor Name 07/25/2014 1 [place] Rosibel Mccullough [id number] Rosibel Mccullough 04/18/2015 1 [facility] (MEDICAID HMO) [id number] Rosibel Mccullough [id number] Rosibel Mccullough 12/29/[address] [facility] [id number] Rosibel Mccullough [id number] Rosibel Mccullough 01/28/[address] [facility] [id number] Rosibel Mccullough [id number] Rosibel Mccullough 10/05/2016 1 [facility] [id number] Rosibel Mccullough [id number] Rosibel Mccullough Notes Date Note Type Note Provider Name and Address Organization Details Recorded Time 12/29/2015 text/html quit tobacco 7 months ago , has gained weight David Felder PA-C Attn: [address] [place], [address], [facility] 12/30/2015 13:07:21 01/28/2016 text/html first bladder infection since she had a bladder lift and hysterectomy in 2003 David Felder PA-C Attn: [address] [place], [address], [facility] 01/28/2016 11:56:27 10/05/2016 text/html sore throat for 3 days , mild fever , no exposure David Felder PA-C Attn: [address] [place], [address], [facility] 10/05/2016 13:12:14 OBGyn Episode No OBEpisode recorded.
--- OUTSIDE RECORDS SUMMARY | 2024-09-22 03:46 | XMS_ITS | Continuity of Care Document ---
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 Name Role Phone Mercado OD, Brian Unavailable Unavailable Procedures Procedure Date Eye Exam & Treatment Post-op Follow-up Visit Post-op Follow-up Visit Post-op Follow-up Visit Post-op Follow-up Visit Post-op Follow-up Visit Post-op Follow-up Visit Post-op Follow-up Visit PRK/ASA Comanaged PRK/ASA Comanaged Refractive Evaluation Corneal Topography Advance Directives Directive Yes / No Effective Date File Name No Information Encounters Encounter Description Practice Location Reason(s) For Visit Diagnoses Date Provider Providers Copied on Encounter [facility], [address] [place] [address] [address], [place], [place], [id number], [place] tel:[phone] [facility] [place] No Information 6-200 9 Mercado OD Brian. [facility] [place] [address], [place], [address], [place]. tel:[phone] Referring Provider: Vaughn Garza OD [facility] [address], [place], [address]. tel:[phone] [facility], [address] [place] [address] [address], [place], [place], [id number], tel:[phone] SEC [facility] No Information Dec-2 3-200 8 Mercado OD Brian. [facility] [address], [place], [place], [facility], . tel:[phone] Referring Provider: Brian Mercado OD A, [facility] [address], [place], [place], [facility]. tel:[phone] [facility], [address] [place] [address] [address], [place], [place], [id number], tel:[phone] [facility] No Information Meek-2 5-200 8 Mercado OD Brian. [address] [place], [place] [address], [place], [facility], [place]. tel:[phone] Referring Provider: Brian Mercado OD A, [facility] [address], [place], [facility]. tel:[phone] [facility], [address] [place] [address] [address], [place], [place], [id number], tel:[phone] [facility] No Information Sep-2 6-200 8 Mercado OD Brian. [address] [place], [place] [address]ate Center , [address], [place], [facility], [place]. tel:[phone] Referring Provider: Brian Mercado OD A, [facility] [address], [place], [facility]. tel:[phone] [facility], [address] [place] [address] [address], [place], [place], [id number], tel:[phone] [facility] No Information Jack-3 0-200 8 Mercado OD Brian. [address] [place], [place] [address], [place], [facility], [place]. tel:[phone] Referring Provider: Brian Mercado OD A, [facility] [address], [place], [facility]. tel:[phone] [facility], [address], [place], [place], [id number], [place] tel:[phone] [facility] No Information 6-200 8 Mercado OD Brian. [facility] [address] , [address], [place], [address], [place]. tel:[phone] Referring Provider: Brian Sanders, [facility] [address], [place], [facility]. tel:[phone] [facility], [address], [place], [place], [address], [place] tel:[phone] [facility] No Information 0 9-200 8 Mercado OD Brian. [address] [place], [place] [address]ate Center , [address], [place], [address], [place]. tel:[phone] Referring Provider: Brian Sanders, [facility] [address], [place], [facility]. tel:[phone] [facility], [address] [place] [address] [address], [place], [place], [id number], [place] tel:[phone] [facility] No Information 0 2-200 8 Mercado OD Brian. [address] [place], [place] [address]ate Nevin [address], [address], [place], [address], [place]. tel:[phone] Referring Provider: Brian Sanders, [facility] [address], [place], [facility]. tel:[phone] [facility], [address], [place], [place], [id number], [place] tel:[phone] [facility] No Information Jun-2 8-200 7 Basilio Robson. [address] [place] [address], [address], [place], [place], [id number], [place]. tel:[phone] Referring Provider: Brian [facility] A, [facility] [address], [place], [address]. tel:[phone] [facility], [address] [facility] [place] [address], [place], [place], [id number], tel:[phone] [facility] No Information Oct-3 0-200 7 Mercado ALYSSA Torres. [address], [address], [place], [address], . tel:[phone] Referring Provider: Robson Sanders, [address], [place], [address] . tel:[phone] [facility], [address], [place], [place], [id number], tel:[phone] SEC [facility] No Information Oct-2 3-200 7 [facility] . [address], [place], [id number], . tel:[phone] Referring Provider: Brian Sanders, [address], [place], [address]. tel:[phone] Family History Family Member Type Diagnosis Age At Onset No Information Payers Payer name Insurance type Covered democrat ID Authoriza tion(s) No Information Social History Type Description Quantity Date Captured Comments Sex Female Smoking Status No Information Chief Complaint And Reason For Visit No Information Reason For Referral Reason For Referral No Information History Of Present Illness Encounter Date Complaint History Of Prese nt Illness No Information Functional Status Date Functional Assessmen t No Information Instructions Date Instruction Additional Infor mation No Information Assessments Type Assessment Date No Information Patient Care Teams Name Effective Dates (start - stop) Status Members No Information
--- OUTSIDE RECORDS SUMMARY | 2024-09-22 03:47 | XMS_ITS | Clinical Summary ---
Author Organization [facility] Address [address] [address] Care Team Providers Care Pulp Refiner Operator Name Role Phone Obdulio Machuca MD Primary Care Provider [phone] Source Comments [facility],non-owned Affiliates and Associated Physician Practices is amultiple site organization consisting of ambulatory clinics and hospital sitesin [place], [place], [place] and [place]. This disclosure is being madepursuant to the Care Everywhere program and may not contain all information available regarding this patient. Last updated 18.[facility] Allergies Active Allergy Reactions Criticality Noted Date Comments Penicillins Rash Medium 02/27/2017 Penicillins Rash Medium 11/06/2017 Sulfamethazine Rash Medium 11/06/2017 Medications * Be aware that medications may not be up to date on this document. Alwaysverify current medications with the patient. Medication Sig Dispensed Refills Start Date End Date Status LOVASTATIN PO Take 20 mg by mouth Ac tive Cholecalciferol (VITAMIN D-3 PO) Active Fluticasone Furoate-Vilanterol (BREO ELLIPTA IN) Active albuterol HFA (PROVENTIL;VENTOLIN; PROAIR) 108 (90 BASE) MCG/ACT inhaler Inhale 2 puffs by mouth every 6 hours as needed Active losartan (COZAAR) 25 MG tablet Take 25 mg by mouth once daily Active escitalopram (LEXAPRO) 5 MG tablet Take 5 mg by mouth once daily Active omeprazole (PRILOSEC) 20 MG capsule omeprazole 20 mg capsule,delayed release Active SYMBICORT 160-4.5 MCG/ACT inhaler INHALE 2 PUFFS BY MOUTH EVERY 12 HOURS 08/17/2021 Active Active Problems Problem Noted Date Diagnosed Date Tobacco user 09/13/2020 Hyperlipidemia 09/13/2020 Gastroesophageal reflux disease 09/13/2020 Fatigue 09/13/2020 Chronic obstructive lung disease 09/13/2020 Resolved Problems Problem Noted Date Diagnosed Date Resolved Date Upper respiratory infection 09/13/2020 09/27/2020 Sinusitis 09/13/2020 10/13/2020 Acute urinary tract infection 09/13/2020 09/27/2020 Immunizations Name Administration Dates Next Due Williams Dawson primary monoval ent 12+ yr 0.3mL Purple cap 01/31/2021,01/09/2021 Social History Tobacco Use Types Packs/Day Years Used Date Smoking Tobacco: Former Cigarettes 1.5 40 1 975 - 2014 Smokeless Tobacco: Never Alcohol Use Standard Drinks/Week Comments Yes 0 (1 standard drink = 0.6 oz pur e alcohol) TWICE A MONTH 1 DRINK Sex and Gender Information Value Date Recorded Sex Assigned at Not on file Gender Identity Not on file Sexual Orientation Not on file Last Filed Vital Signs Vital Sign Reading Time Taken Comments Blood Pressure 145/75 09/03/2021 12:47 PM SYSTEMS DESIGN ENGINEER Pulse 85 09/03/2021 12:47 PM SYSTEMS DESIGN ENGINEER Temperature 36.4 C (97.5 F) 09/03/2021 12:47 PM SYSTEMS DESIGN ENGINEER Respiratory Rate 16 09/13/2020 3:56 PM SYSTEMS DESIGN ENGINEER Oxygen Saturation 96% 09/03/2021 12:47 PM SYSTEMS DESIGN ENGINEER Inhaled Oxygen Concentration - - Weight 78.9 kg (174 lb) 09/03/2021 12:47 PM SYSTEMS DESIGN ENGINEER Height 165.1 cm (5' 5 ) 09/03/2021 12:47 PM SYSTEMS DESIGN ENGINEER Body Mass Index 28.96 09/03/2021 12:47 PM SYSTEMS DESIGN ENGINEER Plan of Treatment Health Maintenance Due Date Last Done Comments MATTHEW (AGES 45-75) - COL ON CA SCREENING 1960 COLON MONITORING 1960 COLONOSCOPY - COLON CA SCREENING 1960 CT COLONOGRAPHY - COLON CA SCREENING 1960 Colorectal Cancer Screening 1960 FIT - COLON CA SCREENING 1960 FLEX SIG - COLON CA SCREENING 1960 MAMMOGRAM 1960 PAP SMEAR 1960 HIV SCREENING 02/04/1975 HEPATITIS C SCREENING 01/31/1978 DTAP/TDAP/TD VACCINES (1 - Tdap) 02/04/1979 PNEUMOCOCCAL VACCINE 50+ (1 of 2 - PCV) 02/04/1979 PNEUMOCOCCAL VACCINE (1 of 2 - PCV) 02/04/1979 LUNG CANCER SCREENING 02/04/2010 ZOSTER VACCINE (1 of 2) 02/04/2010 Respiratory Syncytial Virus (RSV) Vaccine Pt: or over 60 yrs (1 - Risk 60-74 years 1-dose series) 2020 COVID-19 VACCINE (3 - 2023-2 5 season) 2024 01/31/2021, 01/09/2021 INFLUENZA VACCINE (#1) 2024 DEPRESSION SCREENING 07/04/2024 SCREENING FOR DIABETES 10/01/2024 10/01/2021 HEPATITIS B VACCINE Aged Out No longe r eligible based on patient's age to complete this topic HIB VACCINE Aged Out No longer eligi ble based on patient's age to complete this topic HPV VACCINE Aged Out No longer eligi ble based on patient's age to complete this topic MENINGOCOCCAL (Group B) VACCINE SHARED DECISION-MAKING Aged Out No longer eligible based on patient's age to complete this topic MENINGOCOCCAL GROUPS A/C/Y/W VACCINE Aged Out No longer eligible b ased on patient's age to complete this topic Goals Goal Patient Goal Type Associated Problems Recent Progress Patient-Stated? Author Medication Management General On track( 022 12:53 PM SYSTEMS DESIGN ENGINEER) Carol Mora, RN Note: Expected end date: ONGOING Interventions: Take all medications as prescribed Let your doctor know right away about any changes in your medications Make sure to request a refill of your medication at least one week prior to your last dose Procedures Procedure Name Priority Date/Time Associated Diagnosis Comments COMPREHENSIVE METABOLIC PANEL Routine 10/01/2021 7:56 AM CDT Elevated liver enzymes Nonalcoholic fatty liver disease from Last 3 Months or Most Recently Relevant to Health Maintenance Results * (ABNORMAL) COMPREHENSIVE METABOLIC PANEL (10/01/2021 7:56 AM CDT) Glucose 91 65 - 99 mg/dL [facility] Comment: Fasting reference interval BUN 20 7 - 25 mg/dL [facility] Creatinine 0.94 0.50 - 0.99 mg/dL [facility] Comment: For patients >49 years of age, the reference limit for Creatinine is approximately 13% higher for people identified as -British. eGFR by MDRD 65 > OR = 60 mL/min/1 .73m2 [facility] eGFR by MDRD 76 > OR = 60 mL/min/1 .73m2 [facility] BUN/Creatinine Ratio NOT APPLICABLE 6 - 22 (calc) [facility] Sodium 140 135 - 146 mmol/L [facility] Potassium 4.2 3.5 - 5.3 mmol/L [facility] Chloride 103 98 - 110 mmol/L [facility] CO2 30 20 - 32 mmol/L [facility] Calcium 9.1 8.6 - 10.4 mg/dL [facility] Protein Total 6.8 6.1 - 8.1 g/dL [facility] Albumin 4.2 3.6 - 5.1 g/dL [facility] Globulin Total 2.6 1.9 - 3.7 g/dL (calc) [facility] Albumin/Globulin Ratio 1.6 1.0 - 2.5 (calc) [facility] Bilirubin Total 1.4(H) 0.2 - 1.2 mg/dL [facility] Alkaline Phosphatase 81 37 - 153 U/L [facility] AST 33 10 - 35 U/L [facility] ALT 36(H) 6 - 29 U/L [facility] Comment: Test Performed at: [facility] [id number] [place] [id number] GUSTAVO MONTERROSO DO,MPH Blood BLOOD SPECIMEN / Unknown 10/01/2021 7:56 AM CDT 10/01/2021 7:57 AM CDT Jon Olson MD LAB - CHEMISTRY [facility] [address] [place] [address] from Last 3 Months or Most Recently Relevant to Health Maintenance Care Teams Pulp Refiner Operator Relationship Specialty Start Date End Date Obdulio Machuca MD [address] [place] [address] PCP - General 04/10/21
[2024-09-22] MEDS: IPRATROPIUM 0.5 MG/ALBUTEROL SULFATE 2.5 MG AMPUL.NEB 3 ML INHALATION ×3 (04:02→19:41)
[2024-09-22] MEDS: POTASSIUM CHLORIDE 20 MEQ PACKET (FOR LIQUID) 40 MEQ PO (05:11)
--- NOTE | 2024-09-22 05:17 | PC.NURSE ---
road test failed. Pt ambulatory without oxygen. Pt dropped to 84 % RA while walking. Pt returned to bed and was 78%RA. Pt placed back on 1lnc and bumped up to 90%.
[2024-09-22] MEDS: ONDANSETRON INJ 4 MG/2 ML VIAL IV PUSH (06:11)
[2024-09-22] MEDS: OSELTAMIVIR PHOSPHATE 75 MG CAPSULE PO ×2 (06:11→20:36)
--- NOTE | 2024-09-22 06:12 | ECG_ITS ---
Test Date: 2024-09-22 06:18:30 Measurements Intervals [place] Rate: 87 P: 68 NC: 188 QRS: 66 QRSD: 92 T: 60 QT: 370 QTc: 448 Interpretive Statements SINUS RHYTHM LOW QRS VOLTAGE IN PRECORDIAL LEADS [QRS DEFLECTION < 1.0 mV IN CHEST LEADS] Compared to ECG 09/22/2024 02:47:28 No significant changes Electronically Signed On 09-22-2024 17:35:21 CDT by Lalita Jade M.D.
[2024-09-22 06:47] LABS: Troponin I 0.037 ng/mL (0.000-0.034)
--- NOTE | 2024-09-22 07:15 | PC.NURSE ---
Patient became SOB ambulating to bedside commode. Patient back in bed.
--- NOTE | 2024-09-22 10:03 | P.HP_ITS ---
H&P: HPI History of Present Illness Date/Time: 09/22/24 10:03 Chief Complaint: Dyspnea Narrative: This very pleasant 64 year old female pt with PMH of HTN, Allergies, HLD, GERD, COPD, Bronchitis and Nicotine use comes to the ER with complaints of dyspnea, worse with exertion. Pt reports she was diagnosed with Flu A now 7 days ago and finished a course of Tamiflu while continuing her inhalers, but she has had i nterval worsening of dyspnea with ambulation. No further fevers or edema noted and she denies any CP. She has been compliant with her medications. In the ER workup was performed that showed an EKG with NSR 87 bpm without ectopy or ischemia, CXR showing NAD, and unremarkable initial labs with exception of Potassium of 3.2 and second troponin is elevated at 0.037. Pts oxygen saturations were noted to be low in the upper 80s, and she required supplemental oxygen to maintain her oxygen sats. She remains on 1-2L [place]. Review of Systems Review of Systems: All systems reviewed & are unremarkable except as noted in HPI and below PMFSH Past Medical History Medical History (Updated 09/22/24 @ 10:19 by AARON Watkins) Elevated troponin Nicotine dependence Hypertension Hyperlipidemia Hypoxia Vitreous hemorrhage BMI 28.0-28.9,adult BMI 29.0-29.9,adult Dyslipidemia Environmental allergies Anxiety UTI (urinary tract infection) GERD (gastroesophageal reflux disease) Bronchitis Asthma COPD (chronic obstructive pulmonary disease) Surgical History Surgical History H/O dilation and curettage H/O: hysterectomy H/O tubal ligation Hx of tonsillectomy Family History Family History Sibling Coronary artery disease Sibling Hypertension Diabetes mellitus Her sister is in a correction and has had limb amputation and other complications of diabetes. Father Hypertension Acute myocardial infarction Diabetes mellitus History of kidney cancer Mother A-fib Social History Social History Social History: Primary care physician: Dr. Deborah Cleary Code status: Full code Smoking packs per day: 1 Smoking cigarettes per day: 20.0 Years smoked: 37 Smoking pack-years: 37.00 Smoking status: Former smoker Tobacco type: cigarettes Second hand tobacco smoke exposure: No Smoking end date: 04/03/15 Alcohol intake: current Drinks per week: 0 Alcohol use details: The patient drinks alcohol rarely and small amounts Substance use: former Substance use type: marijuana Do You Feel Safe in your Home?: Yes Lack of Transportation: No Lack of Food: Never True Current Housing: I Have Housing Concerned About Future Housing: No Difficulty Paying Gas/Electric Bills: No Difficulty Paying for Meds: No Currently Unemployed: No Education: High School Diploma/GED Difficulty w/ Childcare or Family Care: No Living arrangements: with family Additional living arrangements comments: The patient her have been together since the 1980s but had not been for approximately 20 years. 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 Gender identity (if verbalized by the patient): Female Spiritual care concerns: No Agree to blood products: Yes Meds Home Medications and Allergies Home Medications ?Medication ?Instructions ?Recorded ?Confirmed ?Type cholecalciferol (vitamin D3) 25 25 mcg PO DAILY 08/25/19 02/27/24 History mcg (1,000 unit) tablet (Vitamin D3) aspirin 81 mg chewable tablet 81 mg PO DAILY@0800 30 days #30 08/28/19 02/27/24 Rx (Children's Aspirin) tabs albuterol sulfate 2.5 mg/3 mL 2.5 mg (3 mL) inhalation Q4-6H PRN 09/26/23 02/27/24 Rx (0.083 %) solution for nebulization shortness of breath or wheezing #180 mL albuterol sulfate 90 mcg/actuation 2 inh inhalation Q4-6H PRN 09/26/23 02/27/24 Rx aerosol inhaler shortness of breath or wheezing #8.5 grams losartan 25 mg tablet See Rx Instructions .Route 02/27/24 02/27/24 Rx .COMPLEX #90 tabs omeprazole 20 mg capsule,delayed See Rx Instructions .Route 02/27/24 02/27/24 Rx release .COMPLEX #90 caps fluticasone furoate 200 1 inh inhalation DAILY #60 ea 05/25/24 Rx mcg-vilanterol 25 mcg/dose inhalation powder (Breo Ellipta) lovastatin 20 mg tablet See Rx Instructions .Route 05/28/24 Rx .COMPLEX #180 tabs alendronate 70 mg tablet mg PO 06/28/24 History ondansetron 4 mg disintegrating 4 mg PO Q8H PRN nausea and 06/28/24 06/28/24 Rx tablet vomiting #10 tabs escitalopram oxalate 5 mg tablet See Rx Instructions .Route 07/22/24 Rx .COMPLEX #90 tabs azithromycin 250 mg tablet See Rx Instructions PO .COMPLEX #6 08/04/24 Rx tabs budesonide 160 mcg-glycopyr 9 2 inh inhalation BID #5.9 grams 09/20/24 Rx mcg-formot 4.8 mcg/actuation HFA inhaler (CallResto) Allergies Allergy/AdvReac Type Severity Reaction Status Date / Time Cephalosporins Allergy Severe RED, Verified 06/28/24 12:48 FLUSHED, BURNING SKIN Penicillins Allergy Unknown Unknown Verified 06/28/24 12:48 Sulfa (Sulfonamide Allergy Unknown Unknown Verified 06/28/24 12:48 Antibiotics) Vital Signs Vital Signs - 24 hr 09/22/24 02:51 09/22/24 02:53 09/22/24 02:54 Temperature 97.9 F Pulse Rate 112 H 88 Respiratory Rate 16 Blood Pressure 193/102 H Pulse Oximetry 88 L 96 Oxygen Delivery Room Air Nasal Cannula Oxygen Flow Rate 2 09/22/24 03:50 09/22/24 04:00 09/22/24 05:18 Temperature Pulse Rate 85 89 Respiratory Rate 18 18 Blood Pressure Pulse Oximetry 90 Oxygen Delivery Nasal Cannula Oxygen Flow Rate 1 09/22/24 07:09 09/22/24 07:10 09/22/24 08:30 Temperature 97.6 F 97.6 F Pulse Rate 92 88 Respiratory Rate 16 18 Blood Pressure 157/96 H 155/92 H Pulse Oximetry 96 96 97 Oxygen Delivery Nasal Cannula Oxygen Flow Rate 1.5 Exam Const: General: comfortable and no acute distress Other: Pt appears chronically ill. She is obese HENMT: Face/Nose/Sinus: Normal nares present Mouth: Yes moist mucous membranes Eyes: General: appearance normal, both eyes and all related structures Neck: Neck: supple and no JVD Thyroid: thyroid normal Carotids: no bruits Lymphatic: lymphadenopathy not noted Resp: Effort & Inspection: normal respiratory effort Auscultation: diminished lung sounds bilateral in the lower lung encarnacion Cardio: Rate: regular rate Rhythm: regular rhythm Heart sounds: no gallops, no murmurs and no rubs GI: GI Palp: Yes Soft to palpation, No Tenderness to palpation present (GI) and No Guarding due to palpation present (GI) Auscultation: normal bowel sounds Skin: General skin exam: normal color and no rashes or lesions noted Lesions: no lesions noted Rashes: no rashes noted Wounds: no wounds Neuro: General: gait normal Speech: normal speech Motor exam (neuro): 5/5 motor strength present throughout and Normal motor muscle tone present throughout Sensory Exam: normal sensation Extrem: General: normal to inspection and no edema Psych: Mental Status: mental status grossly normal Affect: normal affect H&P: Results Labs Labs: Short CBC 09/22/24 Range/Units 02:56 WBC 6.4 (4.5-10.0) K/mm3 Hgb 13.3 (12.0-15.0) g/dL Hct 39.8 (37.0-47.0) % Plt Count 129 L (150-375) k/mm3 BMP 09/22/24 03:11 Sodium 138 Potassium 3.2 L Chloride 101 Carbon Dioxide 30 BUN 18 H Creatinine 0.78 Glucose 119 H Calcium 9.2 Cardiac Enzymes 09/22/24 09/22/24 Range/Units 03:11 06:16 Troponin I 0.025 0.037 H* D (0.000-0.034) ng/mL Liver Function 09/22/24 Range/Units 03:11 Total Bilirubin 1.0 (0.2-1.3) mg/dL AST 48 H (14-36) U/L ALT 40 H (6-35) U/L Alkaline Phosphatase 65 (38-126) U/L Albumin 3.9 (3.5-5.1) g/dL Assessment and Plan Assessment and plan (1) Influenza A: Code(s): J10.1 - Influenza due to other identified influenza virus with other respiratory manifestations Status: Acute Assessment and Plan: * Supportive therapy * Tamiflu restarted by ER for an additional 5 days. * Trend sats and wean as tolerated. * CXR reviewed with negative results for Active Disease. * Supplemental oxygen * nebulizer treatments * Monitor VS and trend labs daily. (2) Hypoxia: Code(s): R09.02 - Hypoxemia Status: Acute Assessment and Plan: * See #1 above. * If continues to worsen, consider CT imaging of chest. (3) COPD (chronic obstructive pulmonary disease): Qualifiers: COPD type: unspecified COPD Qualified Code(s): J44.9 - Chronic obstructive pulmonary disease, unspecified Code(s): J44.9 - Chronic obstructive pulmonary disease, unspecified Status: Chronic Assessment and Plan: * Suspect an exacerbation of chronic disease. * Continue nebs. * monitor sats and trend labs and VS. (4) Elevated troponin: Code(s): R79.89 - Other specified abnormal findings of blood chemistry Status: Acute Assessment and Plan: * Minimal increase from 0.025-->0.037 * EKG showing NSR 87 bpm without ectopy or ischemia. * Suspect demand ischemia. * Consult Cardiology for input * Therapeutic Lovenox (5) Hyperlipidemia: Code(s): E78.5 - Hyperlipidemia, unspecified Status: Chronic Assessment and Plan: * Continue Statin when meds are confirmed. * Heart Healthy Diet (6) Hypertension: Code(s): I10 - Essential (primary) hypertension Status: Chronic Assessment and Plan: * Heart healthy Diet * Continue meds when confirmed. (7) Nicotine dependence: Code(s): F17.200 - Nicotine dependence, unspecified, uncomplicated Status: Chronic Assessment and Plan: * Nicotine patch Quality VTE Prophylaxis VTE prophylaxis: pharmacologic ordered
--- NOTE | 2024-09-22 10:05 | ADMGEN ---
This patient, Mariely Mccullough, was admitted to IMU Room 211-01. Patient/family oriented to hospital policies and general routines including ID bracelet, bed and alarms, visiting hours, pain management, procedures, bathroom and other care routines, personal items, smoking policy, room service/diet, and visiting hours. Information on how to activate the Rapid Response Team has been discussed. Patient/Family are encouraged to report perceived risks to care and to ask questions if they do not understand what they are told or what they should do.
[2024-09-22] MEDS: ENOXAPARIN 80 MG/0.8 ML SYRINGE SUB-Q ×2 (10:33→20:36)
[2024-09-22] MEDS: LOVASTATIN 20 MG TABLET 40 MG PO (11:46)
[2024-09-22] MEDS: LOSARTAN POTASSIUM 25 MG TABLET PO (11:46)
[2024-09-22] MEDS: PANTOPRAZOLE 40 MG TABLET PO (11:47)
[2024-09-22] MEDS: ESCITALOPRAM OXALATE 5 MG TABLET BY MOUTH (11:47)
[2024-09-22] MEDS: ASPIRIN 81 MG CHEWABLE TABLET PO (11:47)
[2024-09-22 14:21] LABS: Troponin I 0.015 ng/mL (0.000-0.034)
--- NOTE | 2024-09-22 14:21 | P.CONCA_ITS ---
Assessment and Plan Assessment and plan (1) Elevated troponin: Code(s): R79.89 - Other specified abnormal findings of blood chemistry Status: Acute Plan 1. Influenza A 2. Acute hypoxic respiratory failure 3. Elevated troponin 4. Hypertension 5. Hyperlipidemia PLAN: -Has one troponin level that is minimally elevated. EKG without ischemic changes. Probably due to demand ischemia from the flu, respiratory failure. -Echocardiogram already ordered and pending. -If echocardiogram without significant abnormality, no additional cardiac workup anticipated. -Continue home ASA, Losartan, Lovastatin. History of Present Illness History of Present Illness Consult date/time: 09/22/24 14:21 Requesting physician: Yuki Quiroz APN-C Consult reason: Other (Elevated troponin) Reason For Visit: acute hypoxic respiratory failure,influenza Narrative: Mariely is a 64 year old female with no prior cardiac history who presented with shortness of breath, worse by exertion. Diagnosed with influenza 7 days ago but has continued to feel worse. No chest pain. Workup shows troponin of 0.025, 0.037, 0.015. CXR with no acute findings. Influenza A positive. EKGs show sinus rhythm without ischemic changes. Review of Systems 2 Review of Systems: All systems reviewed & are unremarkable except as noted in HPI and below (HPI) PMFSH Past Medical History Medical History Elevated troponin Nicotine dependence Hypertension Hyperlipidemia Hypoxia Vitreous hemorrhage BMI 28.0-28.9,adult BMI 29.0-29.9,adult Dyslipidemia Environmental allergies Anxiety UTI (urinary tract infection) GERD (gastroesophageal reflux disease) Bronchitis Asthma COPD (chronic obstructive pulmonary disease) Surgical History Surgical History H/O dilation and curettage H/O: hysterectomy H/O tubal ligation Hx of tonsillectomy Family History Family History Sibling Coronary artery disease Sibling Hypertension Diabetes mellitus Her sister is in a detention and has had limb amputation and other complications of diabetes. Father Hypertension Acute myocardial infarction Diabetes mellitus History of kidney cancer Mother A-fib Social History Social History Social History: Primary care physician: Dr. Deborah Cleary Code status: Full code Smoking packs per day: 1.5 Smoking cigarettes per day: 30.0 Years smoked: 40 Smoking pack-years: 60.00 Smoking status: Former smoker Tobacco type: cigarettes Second hand tobacco smoke exposure: No Smoking end date: 04/03/15 Alcohol intake: never Drinks per week: 0 Alcohol use details: The patient drinks alcohol rarely and small amounts Substance use: never Substance use type: does not use Do You Feel Safe in your Home?: Yes Lack of Transportation: No Lack of Food: Never True Current Housing: I Have Housing Concerned About Future Housing: No Difficulty Paying Gas/Electric Bills: No Difficulty Paying for Meds: No Currently Unemployed: No Education: Don't Know Difficulty w/ Childcare or Family Care: No Living arrangements: with family Additional living arrangements comments: The patient her have been together since the but had not been for approximately 20 years. 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 Gender identity (if verbalized by the patient): Female Spiritual care concerns: No Agree to blood products: Yes Meds Home Medications and Allergies Home Medications ?Medication ?Instructions ?Recorded ?Confirmed ?Type aspirin 81 mg chewable tablet 81 mg PO DAILY@0800 30 days #30 08/28/19 09/22/24 Rx (Children's Aspirin) tabs losartan 25 mg tablet See Rx Instructions .Route 02/27/24 09/22/24 Rx .COMPLEX #90 tabs omeprazole 20 mg capsule,delayed See Rx Instructions .Route 02/27/24 09/22/24 Rx release .COMPLEX #90 caps lovastatin 20 mg tablet See Rx Instructions .Route 05/28/24 09/22/24 Rx .COMPLEX #180 tabs alendronate 70 mg tablet 70 mg PO WEEKLY 06/28/24 09/22/24 History escitalopram oxalate 5 mg tablet See Rx Instructions .Route 07/22/24 09/22/24 Rx .COMPLEX #90 tabs Allergies Allergy/AdvReac Type Severity Reaction Status Date / Time Cephalosporins Allergy Severe RED, Verified 06/28/24 12:48 FLUSHED, BURNING SKIN Penicillins Allergy Unknown Unknown Verified 06/28/24 12:48 Sulfa (Sulfonamide Allergy Unknown Unknown Verified 12/26/24 12:48 Antibiotics) Vital Signs Vital Signs - 24 hr 09/22/24 02:51 09/22/24 02:53 09/22/24 02:54 Temperature 36.6 C Pulse Rate 112 H 88 Respiratory Rate 16 Blood Pressure 193/102 H Pulse Oximetry 88 L 96 Oxygen Delivery Room Air Nasal Cannula Oxygen Flow Rate 2 09/22/24 03:50 09/22/24 04:00 09/22/24 05:18 Temperature Pulse Rate 85 89 Respiratory Rate 18 18 Blood Pressure Pulse Oximetry 90 Oxygen Delivery Nasal Cannula Oxygen Flow Rate 1 09/22/24 07:09 09/22/24 07:10 09/22/24 08:30 Temperature 36.4 C 36.4 C Pulse Rate 92 88 Respiratory Rate 16 18 Blood Pressure 157/96 H 155/92 H Pulse Oximetry 96 96 97 Oxygen Delivery Nasal Cannula Oxygen Flow Rate 1.5 09/22/24 08:30 09/22/24 09:00 09/22/24 09:10 Temperature Pulse Rate 86 Respiratory Rate Blood Pressure Pulse Oximetry 100 97 Oxygen Delivery Nasal Cannula Room Air Oxygen Flow Rate 2 09/22/24 10:00 09/22/24 11:41 09/22/24 12:00 Temperature 36.4 C L Pulse Rate 84 96 Respiratory Rate 20 Blood Pressure 135/79 Pulse Oximetry 99 98 Oxygen Delivery Nasal Cannula Oxygen Flow Rate 2 09/22/24 12:00 Temperature Pulse Rate 86 Respiratory Rate Blood Pressure Pulse Oximetry Oxygen Delivery Oxygen Flow Rate Exam 2 Const: General: no acute distress HENMT: Mouth: Yes moist mucous membranes Eyes: General: appearance normal, both eyes and all related structures S clera: sclerae normal Resp: Other: On supplemental oxygen Cardio: Rate: regular rate Rhythm: regular rhythm Heart sounds: no murmurs Skin: General skin exam: normal color Neuro: Speech: normal speech Psych: Mental Status: mental status grossly normal Affect: normal affect Results Labs and Meds 09/22/24 02:56 09/22/24 03:11 Lab results: Cardiac Enzymes 09/22/24 09/22/24 Range/Units 03:11 06:16 AST 48 H (14-36) U/L Troponin I 0.025 0.037 H* D (0.000-0.034) ng/mL CBC 09/22/24 Range/Units 02:56 WBC 6.4 (4.5-10.0) K/mm3 RBC 4.44 (4.2-5.4) M/mm3 Hgb 13.3 (12.0-15.0) g/dL Hct 39.8 (37.0-47.0) % Plt Count 129 L (150-375) k/mm3 Lymph # (Auto) 3.21 H (0.9-3.2) K/mm3 [place] # (Auto) 0.5 (0.1-0.6) K/mm3 Eos # (Auto) 0.1 (0-0.3) K/mm3 Baso # (Auto) 0.0 (0.0-0.1) K/mm3 Comprehensive Metabolic Panel 09/22/24 Range/Units 03:11 Sodium 138 (137-145) mmol/L Potassium 3.2 L (3.4-5.0) mmol/L Chloride 101 (98-107) mmol/L Carbon Dioxide 30 (22-30) mmol/L BUN 18 H (7-17) mg/dL Creatinine 0.78 (0.7-1.0) mg/dL Glucose 119 H (65-110) mg/dL Calcium 9.2 (8.4-10.2) mg/dL AST 48 H (14-36) U/L ALT 40 H (6-35) U/L Alkaline Phosphatase 65 (38-126) U/L Total Protein 7.0 (6.3-8.2) g/dL Albumin 3.9 (3.5-5.1) g/dL Intake and Output 09/21/24 09/22/24 09/22/24 23:59 07:59 15:59 Intake Total 358 Balance 358 Intake: Oral 358 Patient Weight 09/22/24 23:59 Weight 80.7 kg
[2024-09-22] MEDS: ACETAMINOPHEN 325 MG TABLET 650 MG PO (23:02)
[2024-09-23] VITALS (20 sets, daily range): BP systolic 133–155; BP diastolic 69–84; PULSE 71–104; RESP 16–22; TEMP 35.8–37.2; O2SAT 93–99
[2024-09-23] MEDS: IPRATROPIUM 0.5 MG/ALBUTEROL SULFATE 2.5 MG AMPUL.NEB 3 ML INHALATION ×4 (01:39→21:40)
[2024-09-23 05:26] LABS: Basophils Percent Auto 0.5 % (0.2-1.2); Eosinophils Absolute Auto 0.1 K/mm3 (0-0.3); Eosinophils Percent Auto 1.4 % (0-4.4); Hematocrit 37.4 % (37.0-47.0); Immature Granulocyte Absolute 0.03 K/mm3 (0.00-0.031); Immature Granulocyte Percent A 0.5 % (0-0.5); Lymphocytes Absolute Auto 2.83 K/mm3 (0.9-3.2); Mean Corpuscular HGB Conc 32.1 g/dl (32-36); Mean Corpuscular Hemoglobin 29.9 pg (26-34); Mean Platelet Volume 11.5 fl (7.4-10.4); Monocytes Absolute Auto 0.5 K/mm3 (0.1-0.6); Monocytes Percent Auto 8.7 % (2.6-8.5); Neutrophils Absolute Auto 2.3 K/mm3 (1.3-6.7); Neutrophils Percent Auto 39.9 % (45.5-73.1); Platelet Count Result 158 k/mm3 (150-375); Red Blood Count 4.02 M/mm3 (4.2-5.4); Red Cell Distribution Width 12.8 % (11.5-14.5); White Blood Count 5.8 K/mm3 (4.5-10.0)
[2024-09-23 05:39] LABS: Alanine Aminotransferase 38 U/L (6-35); Albumin Level 3.6 g/dL (3.5-5.1); Alkaline Phosphatase 61 U/L (38-126); Anion Gap 7 mmol/L (4-12); Aspartate Amino Transferase 44 U/L (14-36); Bilirubin,Total 1.3 mg/dL (0.2-1.3); Blood Urea Nitrogen 15 mg/dL (7-17); Calcium 8.6 mg/dL (8.4-10.2); Carbon Dioxide 29 mmol/L (22-30); Chloride 103 mmol/L (98-107); Estimated CRCL calculation 61 ml/min; Estimated Glomerular Filt Rate > 60; Glucose 104 mg/dL (65-110); Magnesium 2.2 mg/dL (1.6-2.3); Potassium 3.8 mmol/L (3.4-5.0); Sodium 139 mmol/L (137-145)
[2024-09-23] MEDS: ALENDRONATE SODIUM 70 MG TABLET PO (06:22)
[2024-09-23] MEDS: ENOXAPARIN 80 MG/0.8 ML SYRINGE SUB-Q (09:31)
[2024-09-23] MEDS: ASPIRIN 81 MG CHEWABLE TABLET PO (09:31)
[2024-09-23] MEDS: PANTOPRAZOLE 40 MG TABLET PO (09:32)
[2024-09-23] MEDS: OSELTAMIVIR PHOSPHATE 75 MG CAPSULE PO ×2 (09:32→20:42)
[2024-09-23] MEDS: ESCITALOPRAM OXALATE 5 MG TABLET BY MOUTH (09:32)
[2024-09-23] MEDS: LOSARTAN POTASSIUM 25 MG TABLET PO (09:32)
[2024-09-23] MEDS: LOVASTATIN 20 MG TABLET 40 MG PO (09:32)
--- NOTE | 2024-09-23 13:35 | P.PNIM_ITS ---
Progress Note: A&P Assessment and Plan (1) Influenza A: Code(s): J10.1 - Influenza due to other identified influenza virus with other respiratory manifestations Status: Acute Assessment and Plan: * Supportive therapy * Tamiflu restarted by ER for an additional 5 days. * Trend sats and wean as tolerated. * CXR reviewed with negative results for Active Disease. * Supplemental oxygen * nebulizer treatments * Monitor VS and trend labs daily. 09/23/24: * Interval improvement in how the pt feels. * Continue to wean oxygen as tolerated. * Continue supportive care and continue tamiflu. (2) Hypoxia: Code(s): R09.02 - Hypoxemia Status: Acute Assessment and Plan: * See #1 above. * If continues to worsen, consider CT imaging of chest. (3) COPD (chronic obstructive pulmonary disease): Qualifiers: COPD type: unspecified COPD Qualified Code(s): J44.9 - Chronic obstructive pulmonary disease, unspecified Code(s): J44.9 - Chronic obstructive pulmonary disease, unspecified Status: Chronic Assessment and Plan: * Suspect an exacerbation of chronic disease. * Continue nebs. * monitor sats and trend labs and VS. 09/23/24: * Adding Solumedrol 40 mg IVP Q8 hrs for suspected COPD component exacerbating breathing. * Consider Pulmonology consult as needed for any worsening. (4) Elevated troponin: Code(s): R79.89 - Other specified abnormal findings of blood chemistry Status: Acute Assessment and Plan: * Minimal increase from 0.025-->0.037 * EKG showing NSR 87 bpm without ectopy or ischemia. * Suspect demand ischemia. * Consult Cardiology for input * Therapeutic Lovenox 09/23/24: * Was evaluated by Cardiology with belief that the elevated trop was demand ischemia only. * decrease Lovenox to 40 mg SC daily for prophylaxis dosing. * Await ECHO results. (5) Hyperlipidemia: Code(s): E78.5 - Hyperlipidemia, unspecified Status: Chronic Assessment and Plan: * Continue Statin when meds are confirmed. * Heart Healthy Diet (6) Hypertension: Code(s): I10 - Essential (primary) hypertension Status: Chronic Assessment and Plan: * Heart healthy Diet * Continue meds when confirmed. (7) Nicotine dependence: Code(s): F17.200 - Nicotine dependence, unspecified, uncomplicated Status: Chronic Assessment and Plan: * Nicotine patch prn Time Spent With Patient Time with patient: 15 - 25 minutes Subjective Date/time seen: 09/23/24 13:35 Interval history: This pt was examined at the bedside this AM in interval assessment. She states she feels OK at rest, but still winded when getting up even to the bedside commode, but believes she is better than yesterday. She has been evaluated by Cardiology who recommends to only follow up on ECHO as her EKG is normal and they believe she likely has some demand ischemia. Pt continues to require oxygen as a supplement. No additional cardiac workup is needed at this time. Review of Systems Review of Systems: All systems reviewed & are unremarkable except as noted in HPI and below Exam Const: General: comfortable and no acute distress Other: Pt appears chronically ill. She is obese HENMT: Face/Nose/Sinus: Normal nares present Mouth: Yes moist mucous membranes Eyes: General: appearance normal, both eyes and all related structures Neck: Neck: supple and no JVD Thyroid: thyroid normal Carotids: no bruits Lymphatic: lymphadenopathy not noted Resp: Effort & Inspection: normal respiratory effort Auscultation: diminished lung sounds bilateral in the lower lung encarnacion Cardio: Rate: regular rate Rhythm: regular rhythm Heart sounds: no gallops, no murmurs and no rubs GI: Auscultation: normal bowel sounds Skin: General skin exam: normal color, no rashes or lesions noted, No lesion and No rashes Lesions: no lesions noted Rashes: no rashes noted Wounds: no wounds Neuro: General: gait normal Speech: normal speech Motor exam (neuro): 5/5 motor strength present throughout and Normal motor muscle tone present throughout Sensory Exam: normal sensation Extrem: General: normal to inspection and no edema Psych: Mental Status: mental status grossly normal Affect: normal affect Objective Data Vital Signs Vital Signs: Vital Signs - 24 hr 09/22/24 14:00 09/22/24 14:50 09/22/24 14:59 Temperature Pulse Rate 80 80 86 Respiratory Rate 18 18 Blood Pressure Pulse Oximetry Oxygen Delivery Oxygen Flow Rate 09/22/24 16:00 09/22/24 16:00 09/22/24 16:00 Temperature 98.3 F Pulse Rate 97 93 Respiratory Rate 14 Blood Pressure 140/75 Pulse Oximetry 94 97 Oxygen Delivery Nasal Cannula Oxygen Flow Rate 2 09/22/24 18:00 09/22/24 19:42 09/22/24 19:42 Temperature Pulse Rate 79 84 Respiratory Rate 16 Blood Pressure Pulse Oximetry 98 Oxygen Delivery Nasal Cannula Oxygen Flow Rate 2 09/22/24 19:50 09/22/24 20:00 09/22/24 20:00 Temperature Pulse Rate 88 80 Respiratory Rate 16 Blood Pressure Pulse Oximetry 96 Oxygen Delivery Nasal Cannula Oxygen Flow Rate 2 09/22/24 20:05 09/22/24 22:00 09/22/24 23:55 Temperature 98.5 F 98.7 F Pulse Rate 79 81 78 Respiratory Rate 22 H 22 H Blood Pressure 142/78 H 136/74 Pulse Oximetry 94 95 Oxygen Delivery Oxygen Flow Rate 09/23/24 00:00 09/23/24 00:00 09/23/24 01:39 Temperature Pulse Rate 78 71 Respiratory Rate 16 Blood Pressure Pulse Oximetry 95 Oxygen Delivery Nasal Cannula Oxygen Flow Rate 2 09/23/24 01:52 09/23/24 02:00 09/23/24 04:00 Temperature Pulse Rate 75 88 Respiratory Rate 16 Blood Pressure Pulse Oximetry 96 Oxygen Delivery Nasal Cannula Oxygen Flow Rate 2 09/23/24 04:00 09/23/24 04:56 09/23/24 06:00 Temperature 99 F Pulse Rate 87 85 85 Respiratory Rate 22 H Blood Pressure 155/84 H Pulse Oximetry 96 Oxygen Delivery Oxygen Flow Rate 09/23/24 07:56 09/23/24 08:00 09/23/24 08:00 Temperature 98.4 F Pulse Rate 89 94 Respiratory Rate 20 Blood Pressure 152/79 H Pulse Oximetry 93 99 Oxygen Delivery Nasal Cannula Oxygen Flow Rate 2 09/23/24 08:33 09/23/24 08:33 09/23/24 08:48 Temperature Pulse Rate 78 77 Respiratory Rate 20 20 Blood Pressure Pulse Oximetry 99 Oxygen Delivery Nasal Cannula Oxygen Flow Rate 2 09/23/24 10:00 09/23/24 12:00 09/23/24 12:00 Temperature 98.8 F Pulse Rate 96 84 93 Respiratory Rate 20 Blood Pressure 133/75 Pulse Oximetry 95 Oxygen Delivery Oxygen Flow Rate Intake/Output Intake/Output: Intake & Output 09/20/24 09/21/24 09/22/24 09/23/24 23:59 23:59 23:59 23:59 Intake Total 1395 500 Output Total 450 Balance 1395 50 Meds/Results Medications: Active Medications Generic Name Dose Route Start Last Admin Trade Name Freq PRN Reason Stop Dose Admin Acetaminophen 650 mg 09/22/24 22:19 09/22/24 23:02 Acetaminophen 325 Mg Tablet PO 650 mg Q6H PRN Administration Mild Pain (1-3) or Fever Albuterol 2.5 mg 09/22/24 09:17 Albuterol Sulfate Neb 2.5 Mg/3 Ml Inh INHALATION Q4HRT PRN Shortness Of Breath Albuterol/Ipratropium 3 ml 09/22/24 14:00 09/23/24 08:33 Ipratropium 0.5 Mg/Albuterol Sulfate 2.5 Mg Ampul.Neb 3 Ml INHALATION 3 ml Q6HRT NIK Administration Alendronate Sodium 70 mg 09/23/24 06:30 09/23/24 06:22 Alendronate Sodium 70 Mg Tablet PO 70 mg Dacosta@0630 NIK Administration Aspirin 81 mg 09/22/24 08:00 09/23/24 09:31 Aspirin 81 Mg Chewable Tablet PO 81 mg DAILY@0800 NIK Administration Enoxaparin Sodium 80 mg 09/22/24 09:00 09/23/24 09:31 Enoxaparin 80 Mg/0.8 Ml Syringe SUB-Q 80 mg Q12HR NIK Administration Escitalopram Oxalate 5 mg 09/22/24 11:15 09/23/24 09:32 Escitalopram Oxalate 5 Mg Tablet BY MOUTH 5 mg DAILY NIK Administration Losartan Potassium 25 mg 09/22/24 11:15 09/23/24 09:32 Losartan Potassium 25 Mg Tablet PO 25 mg DAILY NIK Administration Lovastatin 40 mg 09/22/24 11:15 09/23/24 09:32 Lovastatin 20 Mg Tablet PO 40 mg DAILY NIK Administration Nicotine 1 patch 09/22/24 11:11 Nicotine (*Pbkc) 21 Mg Patch TRANSDERM DAILY PRN nicotine withdrawal Ondansetron HCl 4 mg 09/22/24 05:46 09/22/24 06:11 Ondansetron Inj 4 Mg/2 Ml Vial IV PUSH 4 mg Q4H PRN Administration Nausea Oseltamivir Phosphate 75 mg 09/22/24 05:55 09/23/24 09:32 Oseltamivir Phosphate 75 Mg Capsule PO 09/27/24 05:54 75 mg Q12HR NIK Administration Pantoprazole Sodium 40 mg 09/22/24 09:00 09/23/24 09:32 Pantoprazole 40 Mg Tablet PO 40 mg QAM NIK Administration Perflutren Lipid Microsphere 0 ml 09/22/24 09:17 Perflutren Lipid Microspheres 1.5 Ml Vial Diluted To 10 Ml Total Volume IV PUSH 09/25/24 09:17 ONCE PRN adequate visualization Protocol Radiology Results: ITS Impressions Chest X-Ray 09/22/24 06:33 Impression: 1: No acute cardiopulmonary disease. Labs Labs: Laboratory Results - last 24 hr 09/22/24 09/23/24 13:51 04:57 WBC 5.8 RBC 4.02 L Hgb 12.0 Hct 37.4 MCV 93.0 MCH 29.9 MCHC 32.1 RDW 12.8 Plt Count 158 MPV 11.5 H Immature Gran % (Auto) 0.5 Neut % (Auto) 39.9 L Lymph % (Auto) 49.0 H [place] % (Auto) 8.7 H Eos % (Auto) 1.4 Baso % (Auto) 0.5 Lymph # (Auto) 2.83 [place] # (Auto) 0.5 Eos # (Auto) 0.1 Baso # (Auto) 0.0 Abs Immat Gran (auto) 0.03 Absolute Neuts (auto) 2.3 Absolute Nucleated RBC 0.000 Nucleated RBC % 0.0 Sodium 139 Potassium 3.8 Chloride 103 Carbon Dioxide 29 Anion Gap 7 BUN 15 Creatinine 0.85 Estim Creat Clear Calc 61 Estimated GFR > 60 Glucose 104 Calcium 8.6 Magnesium 2.2 Total Bilirubin 1.3 AST 44 H ALT 38 H Alkaline Phosphatase 61 Troponin I 0.015 D Total Protein 7.0 Albumin 3.6 Quality VTE Prophylaxis VTE prophylaxis: pharmacologic ordered
[2024-09-23] MEDS: methylPREDNISolone SOD SUCC 40 MG VIAL IV PUSH ×2 (13:58→20:49)
--- NOTE | 2024-09-23 19:13 | PC.NURSE ---
This patient, Mariely Mccullough, was transferred to [ [facility]] on 09/23/24 at 1900. Personal belongings sent with patient. Report given to [ Rubi ]. Appropriate documentation sent with patient.
[2024-09-24] VITALS (16 sets, daily range): BP systolic 125–141; BP diastolic 70–71; PULSE 10–119; RESP 16–20; TEMP 36.4–36.6; O2SAT 93–99
--- NOTE | 2024-09-24 | ECHO_ITS ---
Patient Info Name: Mariely Mccullough Age: 64 years : 1960 Gender: Female Ht: 65 in Wt: 177 lbs BSA: 1.94 m2 HR: 103 bpm BP: 146 / 80 mmHg Heart Rhythm: Sinus Rhythm Technical Quality: Poor Exam Date: 09/24/2024 1:27 PM Exam Location: Echo Lab Patient Status: Inpatient Admit Date: 09/22/2024 Staff Ordering Physician: Yuki Quiroz Fish Cleaner: Taylor Yi RDCS Attending Provider: Yuki Quiroz Referring Physician: Gabriella DORADO; Exam Type: CA echo doppler w bubble study Study Info Indications - Dyspnea and hypoxia Complete two-dimentional, color flow and Doppler transthoracic echocardiogram is performed with agitated saline and with contrast to opacify the left ventricle and to improve the delineation of the left ventricle endocardial borders. Contrast/Agitated Saline Contrast/Ag. Saline: Definity Amount: 2.00 ml Existing IV Access: Yes IV Access Condition: patent with no signs of infiltration Contrast/Ag. Saline: Agitated Saline Amount: 12.00 ml Existing IV Access: Yes IV Access Condition: patent with no signs of infiltration Reason for Poor Study: patient body habitus Summary 1. Left ventricular chamber dimension is normal. 2. Left ventricular systolic function is hyperdynamic, estimated at >70%. 3. There is moderately increased left ventricular wall thickness. 4. The left ventricular diastolic function is grade I diastolic dysfunction. 5. Right ventricular systolic function is normal. 6. Inconclusive bubble study. 7. Normal inferior vena cava with >50% collapse upon inspiration consistent with normal right atrial pressure, 3 mmHg. 8. No significant valvular disease. Left Ventricle Left ventricular chamber dimension is normal. Left ventricular systolic function is hyperdynamic, estimated at >70%. There is moderately increased left ventricular wall thickness. The left ventricular diastolic function is grade I diastolic dysfunction. Right Ventricle Right ventricular chamber dimension is normal. Right ventricular systolic function is normal. Left Atria Left atrial chamber dimension is normal. Right Atria Right atrial chamber dimension is normal. Atrial Septum Intact interatrial septum visualized by color flow imaging. Inconclusive bubble study. Aortic Valve There is no aortic valve stenosis. There is no aortic valve regurgitation. Pulmonic Valve The pulmonic valve is not well visualized. Mitral Valve There is trace mitral valve regurgitation. Tricuspid Valve There is trace tricuspid valve regurgitation. Pericardium/Pleural The pericardium appears epicardial fat pad. There is no pericardial effusion. Inferior Vena Cava Normal inferior vena cava with >50% collapse upon inspiration consistent with normal right atrial pressure, 3 mmHg. Aorta The aortic root size at the sinus of Valsalva is normal. Left Ventricular Outflow Tract Name Value Normal LVOT 2D LVOT Diameter 1.7 cm LVOT Doppler LVOT Peak Gradient 15 mmHg LVOT Mean Gradient 7 mmHg LVOT VTI 29 cm LVOT VTI/AV VTI Ratio 0.8 LVOT Stroke Volume 67 ml LVOT CO 17.4 l/min LVOT CI 9.0 l/min/m2 Tricuspid Valve Name Value Normal TV Regurgitation Doppler TR Peak Velocity 289 cm/s TR Peak Gradient 33 mmHg Estimated PAP/RSVP RA Pressure 3 mmHg <=5 PA Systolic Pressure 36 mmHg <36 RV Systolic Pressure 36 mmHg <36 Aorta Name Value Normal Ascending Aorta Ao Root Diameter (MM) 3.1 cm Ao Root Diam Index (MM) 1.6 cm/m2 Aortic Valve Name Value Normal AV Doppler AV Peak Velocity 222 cm/s AV Peak Gradient 20 mmHg AV Mean Gradient 12 mmHg AV VTI 35 cm AV Area (Cont Eq VTI) 1.9 cm2 >=3.0 AV Area (Cont Eq Mahad) 2.1 cm2 AV Regurgitation 2D LVOT Area 2.3 cm2 Ventricles Name Value Normal LV Dimensions 2D/MM IVS Diastolic Thickness (2D) 2.0 cm 0.6-1.0 LVID Diastole (2D) 3.9 cm 3.8-5.2 LVIW Diastolic Thickness (2D) 1.3 cm 0.6-0.9 LVID Systole (2D) 2.8 cm 2.2-3.5 LVOT Diameter 1.7 cm LV Mass (2D Cubed) 268.35 g 67.00-162.00 LV Mass Index (2D Cubed) 138 g/m2 43-95 Relative Wall Thickness (2D) 0.69 LV Fractional Shortening/Ejection Fraction 2D/MM LV Fractional Shortening (2D) 28 % 27-45 LV EF (2D Teicholz) 54 % 54-74 LV Diastolic Volume (4C MOD) 77 ml LV EF (4C MOD) 80 % LV Diastolic Volume (2C MOD) 74 ml LV EF (2C MOD) 82 % LV Diastolic Volume (BP MOD) 76 ml 46-106 LV Diastolic Volume Index (BP MOD) 39 ml/m2 29-61 LV Systolic Volume (BP MOD) 14 ml 14-42 LV Systolic Volume Index (BP MOD) 7 ml/m2 8-24 LV EF (BP MOD) 81 % 54-74 LV Diastolic Length (4C) 6.3 cm LV Systolic Length (4C) 5.0 cm LV Stroke Volume (4C MOD) 62 ml Atria Name Value Normal LA Dimensions LA Dimension (MM) 2.4 cm 2.7-3.8 LA Volume (4C A-L) 33 ml RA Dimensions RA Area (4C) 11.0 cm2 <=18.0 Report Signatures
[2024-09-24] MEDS: IPRATROPIUM 0.5 MG/ALBUTEROL SULFATE 2.5 MG AMPUL.NEB 3 ML INHALATION ×3 (02:42→21:27)
[2024-09-24] MEDS: methylPREDNISolone SOD SUCC 40 MG VIAL IV PUSH ×3 (05:29→22:00)
[2024-09-24 06:27] LABS: Basophils Percent Auto 0.3 % (0.2-1.2); Hematocrit 36.9 % (37.0-47.0); Hemoglobin 12.1 g/dL (12.0-15.0); Immature Granulocyte Absolute 0.13 K/mm3 (0.00-0.031); Immature Granulocyte Percent A 1.7 % (0-0.5); Lymphocytes Percent Auto 23.3 % (18.3-44.2); Mean Corpuscular HGB Conc 32.8 g/dl (32-36); Mean Corpuscular Hemoglobin 30.3 pg (26-34); Mean Corpuscular Volume 92.3 fl (80-100); Mean Platelet Volume 10.7 fl (7.4-10.4); Monocytes Absolute Auto 0.2 K/mm3 (0.1-0.6); Monocytes Percent Auto 2.2 % (2.6-8.5); Neutrophils Absolute Auto 5.6 K/mm3 (1.3-6.7); Neutrophils Percent Auto 72.5 % (45.5-73.1); Platelet Count Result 181 k/mm3 (150-375); Red Cell Distribution Width 12.8 % (11.5-14.5); White Blood Count 7.7 K/mm3 (4.5-10.0)
[2024-09-24 06:46] LABS: Alanine Aminotransferase 36 U/L (6-35); Albumin Level 3.8 g/dL (3.5-5.1); Alkaline Phosphatase 61 U/L (38-126); Anion Gap 9 mmol/L (4-12); Aspartate Amino Transferase 38 U/L (14-36); Bilirubin,Total 0.9 mg/dL (0.2-1.3); Blood Urea Nitrogen 17 mg/dL (7-17); Calcium 8.8 mg/dL (8.4-10.2); Carbon Dioxide 26 mmol/L (22-30); Chloride 104 mmol/L (98-107); Estimated CRCL calculation 78 ml/min; Estimated Glomerular Filt Rate > 60; Glucose 157 mg/dL (65-110); Potassium 3.7 mmol/L (3.4-5.0); Sodium 139 mmol/L (137-145)
[2024-09-24] MEDS: ENOXAPARIN 40 MG/0.4 ML SYRINGE SUB-Q (08:38)
[2024-09-24] MEDS: LOSARTAN POTASSIUM 25 MG TABLET PO (08:39)
[2024-09-24] MEDS: OSELTAMIVIR PHOSPHATE 75 MG CAPSULE PO ×2 (08:39→22:00)
[2024-09-24] MEDS: ASPIRIN 81 MG CHEWABLE TABLET PO (08:39)
[2024-09-24] MEDS: PANTOPRAZOLE 40 MG TABLET PO (08:39)
[2024-09-24] MEDS: ESCITALOPRAM OXALATE 5 MG TABLET BY MOUTH (08:39)
[2024-09-24] MEDS: LOVASTATIN 20 MG TABLET 40 MG PO (08:39)
--- NOTE | 2024-09-24 09:55 | P.PNIM_ITS ---
Progress Note: A&P Assessment and Plan (1) Influenza A: Code(s): J10.1 - Influenza due to other identified influenza virus with other respiratory manifestations Status: Acute (2) COPD (chronic obstructive pulmonary disease): Qualifiers: COPD type: unspecified COPD Qualified Code(s): J44.9 - Chronic obstructive pulmonary disease, unspecified Code(s): J44.9 - Chronic obstructive pulmonary disease, unspecified Status: Chronic (3) COPD exacerbation: Code(s): J44.1 - Chronic obstructive pulmonary disease with (acute) exacerbation Status: Acute (4) Acute hypoxemic respiratory failure: Code(s): J96.01 - Acute respiratory failure with hypoxia Status: Acute Plan Influenza A: Code(s): J10.1 - Influenza due to other identified influenza virus with other respiratory manifestations Status: Acute Assessment and Plan: Patient has positive facet influenza a, chest x-ray shows no consolidation continue tamiflu. * Acute respiratory failure with Hypoxia: Code(s): R09.02 - Hypoxemia Status: Acute Assessment and Plan: Continue O2 therapy to keep pulse ox above 92 Acute exacerbation of COPD (chronic obstructive pulmonary disease): Qualifiers: COPD type: unspecified COPD Qualified Code(s): J44.9 - Chronic obstructive pulmonary disease, unspecified Code(s): Patient has history of COPD, patient has worsening shortness breath and cough. Suggesting COPD exacerbation due to influenza a infection Continue Solumedrol 40 mg IVP Q8 hrs for suspected COPD component exacerbating breathing. Consider Pulmonology consult as needed for any worsening. Elevated troponin: Code(s): R79.89 - Other specified abnormal findings of blood chemistry Status: Acute Assessment and Plan: * Minimal increase from 0.025-->0.037 * EKG showing NSR 87 bpm without ectopy or ischemia. evaluated by Cardiology with belief that the elevated trop was demand ischemia only. ECHO results. (5) Hyperlipidemia: Code(s): E78.5 - Hyperlipidemia, unspecified Status: Chronic Assessment and Plan: * Continue Statin when meds are confirmed. * Heart Healthy Diet Hypertension: Code(s): I10 - Essential (primary) hypertension Status: Chronic Assessment and Plan: * Heart healthy Diet * Continue meds when confirmed. Nicotine dependence: Code(s): F17.200 - Nicotine dependence, unspecified, uncomplicated Status: Chronic Assessment and Plan: * Nicotine patch prnTime Spent With Patient Time with patient: 15 - 25 minutes Subjective Date/time seen: 09/24/24 09:55 Interval history: I saw examined patient in presents of patient's . Patient still has some shortness of breath with mild exertion. Patient is dry cough. Denies chest pain, nausea vomiting diarrhea Patient is afebrile, still has tachypnea, tachycardia. Labs reviewed, CBC and chemistry unremarkable Saw exam patient today, patient still has Exam Narrative: GENERAL: Pleasant, in no acute distress. Well-nourished. - EYES: EOMI. Anicteric. - HENT: Moist mucous membranes. - LUNGS: Distant breath sounds bilatera lly. Coarse breath sound bilaterally, tachypnea - CARDIOVASCULAR: Regular rate and rhyth m. No murmur. No JVD. - ABDOMEN: Soft, non-tender and non-dist ended. No palpable masses. - EXTREMITIES: No edema. Peripheral puls es 2+. Non-tender. - NEUROLOGIC: No focal neurological defi cits. CN II-XII grossly intact. - PSYCHIATRIC: Awake, Alert and oriented x 3. Appropriate mood and affect. - SKIN: No rashes or lesions. Warm. - LYMPH: No cervical lymphadenopathy. Objective Data Vital Signs Vital Signs: Vital Signs - 24 hr 09/23/24 10:00 09/23/24 12:00 09/23/24 12:00 Temperature 98.8 F Pulse Rate 96 84 93 Respiratory Rate 20 Blood Pressure 133/75 Pulse Oximetry 95 Oxygen Delivery Oxygen Flow Rate Fraction of Inspired Oxygen 09/23/24 12:00 09/23/24 13:35 09/23/24 13:47 Temperature Pulse Rate 104 H 101 H Respiratory Rate 20 20 Blood Pressure Pulse Oximetry 95 Oxygen Delivery Nasal Cannula Oxygen Flow Rate 1 Fraction of Inspired Oxygen 09/23/24 16:00 09/23/24 16:00 09/23/24 20:00 Temperature 96.4 F L Pulse Rate 104 H 101 H Respiratory Rate 20 18 Blood Pressure 147/69 H 146/80 H Pulse Oximetry 93 93 94 Oxygen Delivery Room Air Oxygen Flow Rate Fraction of Inspired Oxygen 09/23/24 20:00 09/23/24 20:00 09/23/24 21:43 Temperature Pulse Rate 94 94 94 Respiratory Rate 20 20 Blood Pressure Pulse Oximetry 96 Oxygen Delivery Room Air Oxygen Flow Rate Fraction of Inspired Oxygen 09/23/24 21:53 09/23/24 22:00 09/24/24 00:00 Temperature Pulse Rate 94 100 Respiratory Rate 20 Blood Pressure Pulse Oximetry 96 Oxygen Delivery Room Air Oxygen Flow Rate Fraction of Inspired Oxygen 21 09/24/24 02:42 09/24/24 02:50 09/24/24 03:03 Temperature Pulse Rate 102 H 104 H 115 H Respiratory Rate 20 20 Blood Pressure Pulse Oximetry Oxygen Delivery Oxygen Flow Rate Fraction of Inspired Oxygen 09/24/24 04:00 09/24/24 07:40 09/24/24 07:40 Temperature Pulse Rate 10 L 100 Respiratory Rate 20 Blood Pressure Pulse Oximetry 93 Oxygen Delivery Room Air Oxygen Flow Rate Fraction of Inspired Oxygen 21 09/24/24 07:51 09/24/24 08:47 09/24/24 08:47 Temperature Pulse Rate 106 H 119 H Respiratory Rate 20 Blood Pressure Pulse Oximetry Oxygen Delivery Room Air Oxygen Flow Rate Fraction of Inspired Oxygen Intake/Output Intake/Output: Intake & Output 09/21/24 09/22/24 09/23/24 09/24/24 23:59 23:59 23:59 23:59 Intake Total 1395 500 350 Output Total 450 Balance 1395 50 350 Meds/Results Medications: Active Medications Generic Name Dose Route Start Last Admin Trade Name Freq PRN Reason Stop Dose Admin Acetaminophen 650 mg 09/22/24 22:19 09/22/24 23:02 Acetaminophen 325 Mg Tablet PO 650 mg Q6H PRN Administration Mild Pain (1-3) or Fever Albuterol 2.5 mg 09/22/24 09:17 Albuterol Sulfate Neb 2.5 Mg/3 Ml Inh INHALATION Q4HRT PRN Shortness Of Breath Albuterol/Ipratropium 3 ml 09/22/24 14:00 09/24/24 07:40 Ipratropium 0.5 Mg/Albuterol Sulfate 2.5 Mg Ampul.Neb 3 Ml INHALATION 3 ml Q6HRT NIK Administration Alendronate Sodium 70 mg 09/23/24 06:30 09/23/24 06:22 Alendronate Sodium 70 Mg Tablet PO 70 mg Dacosta@0630 NIK Administration Aspirin 81 mg 09/22/24 08:00 09/24/24 08:39 Aspirin 81 Mg Chewable Tablet PO 81 mg DAILY@0800 NIK Administration Enoxaparin Sodium 40 mg 09/24/24 09:00 09/24/24 08:38 Enoxaparin 40 Mg/0.4 Ml Syringe SUB-Q 40 mg DAILY NIK Administration Escitalopram Oxalate 5 mg 09/22/24 11:15 09/24/24 08:39 Escitalopram Oxalate 5 Mg Tablet BY MOUTH 5 mg DAILY NIK Administration Losartan Potassium 25 mg 09/22/24 11:15 09/24/24 08:39 Losartan Potassium 25 Mg Tablet PO 25 mg DAILY NIK Administration Lovastatin 40 mg 09/22/24 11:15 09/24/24 08:39 Lovastatin 20 Mg Tablet PO 40 mg DAILY NIK Administration Methylprednisolone Sodium Succinate 40 mg 09/23/24 14:00 09/24/24 05:29 Methylprednisolone Sod Succ 40 Mg Vial IV PUSH 40 mg Q8HR NIK Administration Nicotine 1 patch 09/22/24 11:11 Nicotine (*Pbkc) 21 Mg Patch TRANSDERM DAILY PRN nicotine withdrawal Ondansetron HCl 4 mg 09/22/24 05:46 09/22/24 06:11 Ondansetron Inj 4 Mg/2 Ml Vial IV PUSH 4 mg Q4H PRN Administration Nausea Oseltamivir Phosphate 75 mg 09/22/24 05:55 09/24/24 08:39 Oseltamivir Phosphate 75 Mg Capsule PO 09/27/24 05:54 75 mg Q12HR NIK Administration Pantoprazole Sodium 40 mg 09/22/24 09:00 09/24/24 08:39 Pantoprazole 40 Mg Tablet PO 40 mg QAM NIK Administration Perflutren Lipid Microsphere 0 ml 09/22/24 09:17 Perflutren Lipid Microspheres 1.5 Ml Vial Diluted To 10 Ml Total Volume IV PUSH 09/25/24 09:17 ONCE PRN adequate visualization Protocol Radiology Results: ITS Impressions Chest X-Ray 09/22/24 06:33 Impression: 1: No acute cardiopulmonary disease. Labs Labs: Laboratory Results - last 24 hr 09/24/24 06:09 WBC 7.7 RBC 4.00 L Hgb 12.1 Hct 36.9 L MCV 92.3 MCH 30.3 MCHC 32.8 RDW 12.8 Plt Count 181 MPV 10.7 H Immature Gran % (Auto) 1.7 H Neut % (Auto) 72.5 Lymph % (Auto) 23.3 [place] % (Auto) 2.2 L Eos % (Auto) 0.0 Baso % (Auto) 0.3 Lymph # (Auto) 1.80 [place] # (Auto) 0.2 Eos # (Auto) 0.0 Baso # (Auto) 0.0 Abs Immat Gran (auto) 0.13 H Absolute Neuts (auto) 5.6 Absolute Nucleated RBC 0.000 Nucleated RBC % 0.0 Sodium 139 Potassium 3.7 Chloride 104 Carbon Dioxide 26 Anion Gap 9 BUN 17 Creatinine 0.66 L Estim Creat Clear Calc 78 Estimated GFR > 60 Glucose 157 H Calcium 8.8 Total Bilirubin 0.9 AST 38 H ALT 36 H Alkaline Phosphatase 61 Total Protein 7.0 Albumin 3.8
[2024-09-24] MEDS: PERFLUTREN LIPID MICROSPHERES 1.5 ML VIAL DILUTED TO 10 ML TOTAL VOLUME IV PUSH (13:45)
--- NOTE | 2024-09-24 15:35 | PCRCNOTE ---
Window of time for administration has passed. See next scheduled administration.
--- NOTE | 2024-09-24 15:48 | IVDEFINITY ---
Prior to administration of IV Definity the patient was educated on the risks and benefits of the imaging enhancing agent including potential adverse side effects. The patient verbalized understanding. Allergies were verified. No exclusion criteria were identified and at least one of the following inclusion criteria were met: 1) physician request, 2) patient technically difficult to image (per the [place] [employer] guidelines of two or more segments not discernable within the apical view), or 3) questionable left ventricular function. ?
[2024-09-25] VITALS (17 sets, daily range): BP systolic 145–156; BP diastolic 66–81; PULSE 86–120; RESP 16–29; TEMP 36.3–36.4; O2SAT 90–100
[2024-09-25] MEDS: IPRATROPIUM 0.5 MG/ALBUTEROL SULFATE 2.5 MG AMPUL.NEB 3 ML INHALATION ×4 (02:20→20:40)
[2024-09-25] MEDS: methylPREDNISolone SOD SUCC 40 MG VIAL IV PUSH ×3 (05:03→20:56)
[2024-09-25 06:21] LABS: Basophils Percent Auto 0.3 % (0.2-1.2); Hematocrit 35.2 % (37.0-47.0); Hemoglobin 11.5 g/dL (12.0-15.0); Immature Granulocyte Absolute 0.33 K/mm3 (0.00-0.031); Immature Granulocyte Percent A 2.1 % (0-0.5); Lymphocytes Percent Auto 15.8 % (18.3-44.2); Mean Corpuscular HGB Conc 32.7 g/dl (32-36); Mean Corpuscular Hemoglobin 30.3 pg (26-34); Mean Corpuscular Volume 92.9 fl (80-100); Mean Platelet Volume 10.9 fl (7.4-10.4); Monocytes Absolute Auto 0.7 K/mm3 (0.1-0.6); Monocytes Percent Auto 4.2 % (2.6-8.5); Neutrophils Absolute Auto 12.3 K/mm3 (1.3-6.7); Neutrophils Percent Auto 77.6 % (45.5-73.1); Platelet Count Result 212 k/mm3 (150-375); Red Blood Count 3.79 M/mm3 (4.2-5.4); White Blood Count 15.8 K/mm3 (4.5-10.0)
[2024-09-25 06:34] LABS: Alanine Aminotransferase 32 U/L (6-35); Albumin Level 3.5 g/dL (3.5-5.1); Alkaline Phosphatase 57 U/L (38-126); Anion Gap 7 mmol/L (4-12); Aspartate Amino Transferase 34 U/L (14-36); Bilirubin,Total 0.7 mg/dL (0.2-1.3); Blood Urea Nitrogen 23 mg/dL (7-17); Calcium 8.4 mg/dL (8.4-10.2); Carbon Dioxide 27 mmol/L (22-30); Chloride 105 mmol/L (98-107); Estimated CRCL calculation 72 ml/min; Estimated Glomerular Filt Rate > 60; Glucose 155 mg/dL (65-110); Potassium 3.9 mmol/L (3.4-5.0); Sodium 139 mmol/L (137-145)
[2024-09-25] MEDS: ASPIRIN 81 MG CHEWABLE TABLET PO (09:11)
[2024-09-25] MEDS: OSELTAMIVIR PHOSPHATE 75 MG CAPSULE PO ×2 (09:11→20:56)
[2024-09-25] MEDS: PANTOPRAZOLE 40 MG TABLET PO (09:11)
[2024-09-25] MEDS: ESCITALOPRAM OXALATE 5 MG TABLET BY MOUTH (09:11)
[2024-09-25] MEDS: LOSARTAN POTASSIUM 25 MG TABLET PO (09:11)
[2024-09-25] MEDS: ENOXAPARIN 40 MG/0.4 ML SYRINGE SUB-Q (09:13)
--- NOTE | 2024-09-25 10:29 | P.PNIM_ITS ---
Progress Note: A&P Assessment and Plan (1) Influenza A: Code(s): J10.1 - Influenza due to other identified influenza virus with other respiratory manifestations Status: Acute (2) COPD (chronic obstructive pulmonary disease): Qualifiers: COPD type: unspecified COPD Qualified Code(s): J44.9 - Chronic obstructive pulmonary disease, unspecified Code(s): J44.9 - Chronic obstructive pulmonary disease, unspecified Status: Chronic (3) COPD exacerbation: Code(s): J44.1 - Chronic obstructive pulmonary disease with (acute) exacerbation Status: Acute (4) Acute hypoxemic respiratory failure: Code(s): J96.01 - Acute respiratory failure with hypoxia Status: Acute Plan Influenza A: Code(s): J10.1 - Influenza due to other identified influenza virus with other respiratory manifestations Status: Acute Assessment and Plan: Patient has positive facet influenza a, chest x-ray shows no consolidation continue tamiflu. * Acute respiratory failure with Hypoxia: Code(s): R09.02 - Hypoxemia Status: Acute Assessment and Plan: Continue O2 therapy to keep pulse ox above 92 Acute exacerbation of COPD (chronic obstructive pulmonary disease): Qualifiers: COPD type: unspecified COPD Qualified Code(s): J44.9 - Chronic obstructive pulmonary disease, unspecified Code(s): Patient has history of COPD, patient has worsening shortness breath and cough. Suggesting COPD exacerbation due to influenza a infection Continue Solumedrol 40 mg IVP Q8 hrs for suspected COPD component exacerbating breathing. Consider Pulmonology consult as needed for any worsening. Elevated troponin: Code(s): R79.89 - Other specified abnormal findings of blood chemistry Status: Acute Assessment and Plan: * Minimal increase from 0.025-->0.037 * EKG showing NSR 87 bpm without ectopy or ischemia. evaluated by Cardiology with belief that the elevated trop was demand ischemia only. ECHO results. (5) Hyperlipidemia: Code(s): E78.5 - Hyperlipidemia, unspecified Status: Chronic Assessment and Plan: * Continue Statin when meds are confirmed. * Heart Healthy Diet Hypertension: Code(s): I10 - Essential (primary) hypertension Status: Chronic Assessment and Plan: * Heart healthy Diet * Continue meds when confirmed. Nicotine dependence: Code(s): F17.200 - Nicotine dependence, unspecified, uncomplicated Status: Chronic Assessment and Plan: * Nicotine patch prn may discharge patient tomorrow if condition continues to improve Subjective Date/time seen: 09/25/24 10:29 Interval history: I saw examined patient has cough with scant phlegm, shortness of breath with mild exertion. Denies chest pain, nausea vomiting diarrhea Patient is afebrile, still has tachypnea, tachycardia. Labs reviewed, CBC and chemistry unremarkable Saw exam patient today, patient still has Exam Narrative: GENERAL: Pleasant, in no acute distress. Well-nourished. - EYES: EOMI. Anicteric. - HENT: Moist mucous membranes. - LUNGS: Distant breath sounds bilatera lly. Coarse breath sound bilaterally, tachypnea - CARDIOVASCULAR: Regular rate and rhyth m. No murmur. No JVD. - ABDOMEN: Soft, non-tender and non-dist ended. No palpable masses. - EXTREMITIES: No edema. Peripheral puls es 2+. Non-tender. - NEUROLOGIC: No focal neurological defi cits. CN II-XII grossly intact. - PSYCHIATRIC: Awake, Alert and oriented x 3. Appropriate mood and affect. - SKIN: No rashes or lesions. Warm. - LYMPH: No cervical lymphadenopathy. Objective Data Vital Signs Vital Signs: Vital Signs - 24 hr 09/24/24 12:00 09/24/24 14:00 09/24/24 16:00 Temperature 97.6 F Pulse Rate 118 H 78 97 Respiratory Rate 16 Blood Pressure 125/70 Pulse Oximetry 99 Oxygen Delivery Fraction of Inspired Oxygen 09/24/24 20:00 09/24/24 21:27 09/24/24 21:30 Temperature Pulse Rate 90 89 Respiratory Rate 20 Blood Pressure Pulse Oximetry 94 Oxygen Delivery Room Air Fraction of Inspired Oxygen 21 09/24/24 21:37 09/24/24 21:50 09/25/24 00:00 Temperature 97.8 F Pulse Rate 87 92 94 Respiratory Rate 20 18 Blood Pressure 141/71 H Pulse Oximetry 94 Oxygen Delivery Fraction of Inspired Oxygen 09/25/24 02:20 09/25/24 02:30 09/25/24 04:00 Temperature Pulse Rate 88 88 96 Respiratory Rate 20 20 Blood Pressure Pulse Oximetry Oxygen Delivery Fraction of Inspired Oxygen 09/25/24 05:40 09/25/24 09:47 09/25/24 09:47 Temperature 97.6 F Pulse Rate 110 H 93 Respiratory Rate 18 29 H Blood Pressure 153/81 H Pulse Oximetry 90 95 Oxygen Delivery Room Air Fraction of Inspired Oxygen 09/25/24 09:59 Temperature Pulse Rate 98 Respiratory Rate 20 Blood Pressure Pulse Oximetry Oxygen Delivery Fraction of Inspired Oxygen Intake/Output Intake/Output: Intake & Output 09/22/24 09/23/24 09/24/24 09/25/24 23:59 23:59 23:59 23:59 Intake Total 1395 500 826 480 Output Total 450 Balance 1395 50 826 480 Meds/Results Medications: Active Medications Generic Name Dose Route Start Last Admin Trade Name Freq PRN Reason Stop Dose Admin Acetaminophen 650 mg 09/22/24 22:19 09/22/24 23:02 Acetaminophen 325 Mg Tablet PO 650 mg Q6H PRN Administration Mild Pain (1-3) or Fever Albuterol 2.5 mg 09/22/24 09:17 Albuterol Sulfate Neb 2.5 Mg/3 Ml Inh INHALATION Q4HRT PRN Shortness Of Breath Albuterol/Ipratropium 3 ml 09/22/24 14:00 09/25/24 09:46 Ipratropium 0.5 Mg/Albuterol Sulfate 2.5 Mg Ampul.Neb 3 Ml INHALATION 3 ml Q6HRT NIK Administration Alendronate Sodium 70 mg 09/23/24 06:30 09/23/24 06:22 Alendronate Sodium 70 Mg Tablet PO 70 mg D[place]osta@0630 NIK Administration Aspirin 81 mg 09/22/24 08:00 09/25/24 09:11 Aspirin 81 Mg Chewable Tablet PO 81 mg DAILY@0800 NIK Administration Enoxaparin Sodium 40 mg 09/24/24 09:00 09/25/24 09:13 Enoxaparin 40 Mg/0.4 Ml Syringe SUB-Q 40 mg DAILY NIK Administration Escitalopram Oxalate 5 mg 09/22/24 11:15 09/25/24 09:11 Escitalopram Oxalate 5 Mg Tablet BY MOUTH 5 mg DAILY NIK Administration Losartan Potassium 25 mg 09/22/24 11:15 09/25/24 09:11 Losartan Potassium 25 Mg Tablet PO 25 mg DAILY NIK Administration Lovastatin 40 mg 09/22/24 11:15 09/24/24 08:39 Lovastatin 20 Mg Tablet PO 40 mg DAILY NIK Administration Methylprednisolone Sodium Succinate 40 mg 09/23/24 14:00 09/25/24 09:11 Methylprednisolone Sod Succ 40 Mg Vial IV PUSH 40 mg Q8HR NIK Administration Nicotine 1 patch 09/22/24 11:11 Nicotine (*Pbkc) 21 Mg Patch TRANSDERM DAILY PRN nicotine withdrawal Ondansetron HCl 4 mg 09/22/24 05:46 09/22/24 06:11 Ondansetron Inj 4 Mg/2 Ml Vial IV PUSH 4 mg Q4H PRN Administration Nausea Oseltamivir Phosphate 75 mg 09/22/24 05:55 09/25/24 09:11 Oseltamivir Phosphate 75 Mg Capsule PO 09/27/24 05:54 75 mg Q12HR NIK Administration Pantoprazole Sodium 40 mg 09/22/24 09:00 09/25/24 09:11 Pantoprazole 40 Mg Tablet PO 40 mg QAM NIK Administration Radiology Results: ITS Impressions Chest X-Ray 09/22/24 06:33 Impression: 1: No acute cardiopulmonary disease. Labs Labs: Laboratory Results - last 24 hr 09/25/24 05:54 WBC 15.8 H RBC 3.79 L Hgb 11.5 L Hct 35.2 L MCV 92.9 MCH 30.3 MCHC 32.7 RDW 13.0 Plt Count 212 MPV 10.9 H Immature Gran % (Auto) 2.1 H Neut % (Auto) 77.6 H Lymph % (Auto) 15.8 L [place] % (Auto) 4.2 Eos % (Auto) 0.0 Baso % (Auto) 0.3 Lymph # (Auto) 2.50 [place] # (Auto) 0.7 H Eos # (Auto) 0.0 Baso # (Auto) 0.0 Abs Immat Gran (auto) 0.33 H Absolute Neuts (auto) 12.3 H Absolute Nucleated RBC 0.000 Nucleated RBC % 0.0 Sodium 139 Potassium 3.9 Chloride 105 Carbon Dioxide 27 Anion Gap 7 BUN 23 H Creatinine 0.72 Estim Creat Clear Calc 72 Estimated GFR > 60 Glucose 155 H Calcium 8.4 Total Bilirubin 0.7 AST 34 ALT 32 Alkaline Phosphatase 57 Total Protein 6.0 L Albumin 3.5
[2024-09-25] MEDS: LOVASTATIN 20 MG TABLET 40 MG PO (12:24)
[2024-09-26] VITALS (8 sets, daily range): BP systolic 151; BP diastolic 92; PULSE 87–102; RESP 18–20; TEMP 37; O2SAT 92–96
[2024-09-26] MEDS: IPRATROPIUM 0.5 MG/ALBUTEROL SULFATE 2.5 MG AMPUL.NEB 3 ML INHALATION ×2 (01:20→08:18)
[2024-09-26] MEDS: methylPREDNISolone SOD SUCC 40 MG VIAL IV PUSH (05:09)
[2024-09-26 08:21] LABS: Basophils Absolute Auto 0.1 K/mm3 (0.0-0.1); Basophils Percent Auto 0.4 % (0.2-1.2); Hemoglobin 12.1 g/dL (12.0-15.0); Immature Granulocyte Absolute 0.82 K/mm3 (0.00-0.031); Immature Granulocyte Percent A 5.6 % (0-0.5); Lymphocytes Percent Auto 19.3 % (18.3-44.2); Mean Corpuscular HGB Conc 31.8 g/dl (32-36); Mean Corpuscular Hemoglobin 29.8 pg (26-34); Mean Corpuscular Volume 93.6 fl (80-100); Mean Platelet Volume 10.7 fl (7.4-10.4); Monocytes Absolute Auto 0.5 K/mm3 (0.1-0.6); Monocytes Percent Auto 3.1 % (2.6-8.5); Neutrophils Absolute Auto 10.4 K/mm3 (1.3-6.7); Neutrophils Percent Auto 71.6 % (45.5-73.1); Platelet Count Result 232 k/mm3 (150-375); Red Blood Count 4.06 M/mm3 (4.2-5.4); Red Cell Distribution Width 13.2 % (11.5-14.5); White Blood Count 14.5 K/mm3 (4.5-10.0)
[2024-09-26 08:38] LABS: Alanine Aminotransferase 50 U/L (6-35); Albumin Level 3.8 g/dL (3.5-5.1); Alkaline Phosphatase 58 U/L (38-126); Anion Gap 11 mmol/L (4-12); Aspartate Amino Transferase 42 U/L (14-36); Bilirubin,Total 0.8 mg/dL (0.2-1.3); Blood Urea Nitrogen 26 mg/dL (7-17); Calcium 8.5 mg/dL (8.4-10.2); Carbon Dioxide 24 mmol/L (22-30); Chloride 104 mmol/L (98-107); Estimated CRCL calculation 74 ml/min; Estimated Glomerular Filt Rate > 60; Glucose 181 mg/dL (65-110); Potassium 3.8 mmol/L (3.4-5.0); Sodium 139 mmol/L (137-145)
[2024-09-26] MEDS: ESCITALOPRAM OXALATE 5 MG TABLET BY MOUTH (08:40)
[2024-09-26] MEDS: PANTOPRAZOLE 40 MG TABLET PO (08:40)
[2024-09-26] MEDS: OSELTAMIVIR PHOSPHATE 75 MG CAPSULE PO (08:41)
[2024-09-26] MEDS: ENOXAPARIN 40 MG/0.4 ML SYRINGE SUB-Q (08:41)
[2024-09-26] MEDS: LOVASTATIN 20 MG TABLET 40 MG PO (08:41)
[2024-09-26] MEDS: LOSARTAN POTASSIUM 25 MG TABLET PO (08:41)
[2024-09-26] MEDS: ASPIRIN 81 MG CHEWABLE TABLET PO (08:41)
--- NOTE | 2024-09-26 10:44 | P.DS_ITS ---
DS: Admitting Diagnosis Discharge Date 09/26/2024 Admitting Diagnosis Acute Respiratory failure with hypoxia DS: Discharge Diagnosis Discharge Diagnosis (1) Influenza A: Code(s): J10.1 - Influenza due to other identified influenza virus with other respiratory manifestations Status: Acute (2) COPD (chronic obstructive pulmonary disease): Qualifiers: COPD type: unspecified COPD Qualified Code(s): J44.9 - Chronic obstructive pulmonary disease, unspecified Code(s): J44.9 - Chronic obstructive pulmonary disease, unspecified Status: Chronic (3) COPD exacerbation: Code(s): J44.1 - Chronic obstructive pulmonary disease with (acute) exacerbation Status: Acute (4) Acute hypoxemic respiratory failure: Code(s): J96.01 - Acute respiratory failure with hypoxia Status: Acute DS: Summary Hospital Course Reason for hospitalization: Dyspnea Hospital Course: This very pleasant 64 year old female pt with PMH of HTN, Allergies, HLD, GERD, COPD, Bronchitis and Nicotine use comes to the ER with complaints of dyspnea, worse with exertion. Pt reports she was diagnosed with Flu A now 7 days ago and finished a course of Tamiflu while continuing her inhalers, but she has had interval worsening of dyspnea with ambulation. No further fevers or edema noted and she denies any CP. She has been compliant with her medications. In the ER workup was performed that showed an EKG with NSR 87 bpm without ectopy or ischemia, CXR showing NAD, and unremarkable initial labs with exception of Potassium of 3.2 and second troponin is elevated at 0.037. Pts oxygen saturations were noted to be low in the upper 80s, and she required supplemental oxygen to maintain her oxygen sats. She remains on 1-2L NC. She was initiated on Tamiflu on 09/22, to be completed on 09/27. Chest XR on 09/22 showed no acute cardiopulmonary disease. Pt continued to remain off O2 supplementation with adequate O2% on RA. Symptoms likely attributed to COPD exacerbation due to Flu A infection. Solumedrol 40mg administed inpatient. On 09/26, patient endorses slight exertional dyspnea but states she feels comfortable with being discharged. She is able to ambulate to the bed from the chair with no difficulties. Afebrile and still off O2 supplementation. Slight elevation in Trop found, Cardio consulted, agree that likely demand ischemia. EKG showed no ischemia. ECHO showd EF >70%, normal LV dimension, LV grade 1 diastolic dysfunction, normal RV systolic function, no valvular disease. Patient otherwise stable for discharge at this time. Will be discharged with 3 additional doses of Tamiflu. Time Spent with Patient Time attestation: Total time spent providing and/or coordinating discharge services:30 Exam Narrative: GENERAL: Pleasant, in no acute distress. Well-nourished. - EYES: EOMI. Anicteric. - HENT: Moist mucous membranes. - LUNGS: Distant breath sounds bilatera lly. Coarse breath sound bilaterally, tachypnea - CARDIOVASCULAR: Regular rate and rhyth m. No murmur. No JVD. - ABDOMEN: Soft, non-tender and non-dist ended. No palpable masses. - EXTREMITIES: No edema. Peripheral puls es 2+. Non-tender. - NEUROLOGIC: No focal neurological defi cits. CN II-XII grossly intact. - PSYCHIATRIC: Awake, Alert and oriented x 3. Appropriate mood and affect. - SKIN: No rashes or lesions. Warm. - LYMPH: No cervical lymphadenopathy. Const: General: comfortable and no acute distress Other: Pt appears chronically ill. She is obese HENMT: Face/Nose/Sinus: Normal nares present Mouth: Yes moist mucous membranes Eyes: General: appearance normal, both eyes and all related structures Neck: Neck: supple and no JVD Thyroid: thyroid normal Carotids: no bruits Lymphatic: lymphadenopathy not noted Resp: Effort & Inspection: normal respiratory effort Auscultation: diminished lung sounds bilateral in the lower lung encarnacion Cardio: Rate: regular rate Rhythm: regular rhythm Heart sounds: no gallops, no murmurs and no rubs GI: Auscultation: normal bowel sounds Skin: General skin exam: normal color, no rashes or lesions noted, No lesion and No rashes Lesions: no lesions noted Rashes: no rashes noted Wounds: no wounds Neuro: General: gait normal Speech: normal speech Motor exam (neuro): 5/5 motor strength present throughout and Normal motor muscle tone present throughout Sensory Exam: normal sensation Extrem: General: normal to inspection and no edema Psych: Mental Status: mental status grossly normal Affect: normal affect DS: Data Data Completed and Pending Labs on day of discharge: Labs from last 24 hours 09/26/24 08:06 WBC 14.5 H RBC 4.06 L Hgb 12.1 Hct 38.0 MCV 93.6 MCH 29.8 MCHC 31.8 L RDW 13.2 Plt Count 232 MPV 10.7 H Immature Gran % (Auto) 5.6 H Neut % (Auto) 71.6 Lymph % (Auto) 19.3 [place] % (Auto) 3.1 Eos % (Auto) 0.0 Baso % (Auto) 0.4 Lymph # (Auto) 2.80 [place] # (Auto) 0.5 Eos # (Auto) 0.0 Baso # (Auto) 0.1 Abs Immat Gran (auto) 0.82 H Absolute Neuts (auto) 10.4 H Absolute Nucleated RBC 0.000 Nucleated RBC % 0.0 Sodium 139 Potassium 3.8 Chloride 104 Carbon Dioxide 24 Anion Gap 11 BUN 26 H Creatinine 0.70 Estim Creat Clear Calc 74 Estimated GFR > 60 Glucose 181 H Calcium 8.5 Total Bilirubin 0.8 AST 42 H ALT 50 H Alkaline Phosphatase 58 Total Protein 7.0 Albumin 3.8 Discharge Plan Discharge Attending physician on discharge: Ariel Romeo Consulting providers: Lalita Jade Discharging Clinician: Ariel Romeo Anticipated Discharge Date/Time: 09/26/24 10:40 Patient Disposition: Home, Self-Care Activity: as tolerated Diet: as tolerated Discharge Instructions: Take all medications as prescribed even if feeling better Eat well balanced meals and stay hydrated Keep active, but do not over do it If you notice that you are short of breath sit down and take a break Check your SPO2 periodically, if it is low cough and rest, check again in about 15 minutes, if you remain low, you should come back to the hospital If you should experience any chest pain, shortness of breath, temps >100.4 or any other worrisome symptoms please follow up with your PCP come back to the hospital Follow up with your primary in 1 weeks It has been a pleasure taking care of you thank you for using our services Patient Instructions: Antibiotic Form Patient Language: Guamanian Stand Alone Forms: General Discharge Information Follow-up/Referrals: Obdulio Machuca MD [Primary Care Provider] - Discharge Medications: New oseltamivir 75 mg capsule 75 mg PO Q12H 1 Days Qty: 3 0RF Rx Instructions: Take one dose tonight, one tomorrow morning and your last dose tomorrow night. Continued losartan 25 mg tablet See Rx Instructions .ROUTE .COMPLEX Qty: 90 2RF Dose Instruction: TAKE ONE TABLET BY MOUTH EVERY MORNING Rx Instructions: TAKE ONE TABLET BY MOUTH EVERY MORNING omeprazole 20 mg capsule,delayed release(DR/EC) See Rx Instructions .ROUTE .COMPLEX Qty: 90 2RF Dose Instruction: TAKE ONE CAPSULE BY MOUTH ONCE DAILY Rx Instructions: TAKE ONE CAPSULE BY MOUTH ONCE DAILY alendronate 70 mg tablet 70 mg PO WEEKLY aspirin [Children's Aspirin] 81 mg Tablet,Chewable 81 mg PO DAILY@0800 30 Days Qty: 30 0RF lovastatin 20 mg tablet See Rx Instructions .ROUTE .COMPLEX Qty: 180 2RF Dose Instruction: TAKE TWO TABLETS BY MOUTH DAILY WITH EVENING MEAL Rx Instructions: TAKE TWO TABLETS BY MOUTH DAILY WITH EVENING MEAL escitalopram oxalate 5 mg tablet See Rx Instructions .ROUTE .COMPLEX Qty: 90 1RF Dose Instruction: TAKE 1 TABLET BY MOUTH EVERY DAY Rx Instructions: TAKE 1 TABLET BY MOUTH EVERY DAY Date of admission: 09/22/24 10:44 Primary Care Provider: Obdulio Machuca Admitting Provider: Charlie Wallace Attending physician on admission: Ariel Romeo Condition: Stable Quality VTE Prophylaxis VTE prophylaxis: pharmacologic ordered
== END 2024-09-26 11:18 | disposition home or self-care (01) | DRG 193 ==
LOC: ANHED 05:21 → ANH3MEDSUR 07:31 → ANHIMU 07:57 → ANH3MEDSUR 09-23 18:44
PROVIDERS: Nurse Practitioner Adult Health; Admitting Provider Hospitalist; Emergency Provider Emergency Medicine; PCP Family Medicine; Visit Provider Physician Assistant
DX: J10.1 Influenza due to other identified influenza virus with other respiratory manifestations (principal); J96.01 Acute respiratory failure with hypoxia; J44.1 Chronic obstructive pulmonary disease with (acute) exacerbation; I24.89 Other forms of acute ischemic heart disease; K21.9 Gastro-esophageal reflux disease without esophagitis; I10 Essential (primary) hypertension; F17.210 Nicotine dependence, cigarettes, uncomplicated; E78.5 Hyperlipidemia, unspecified; Z90.710 Acquired absence of both cervix and uterus
CPT/HCPCS: 36415; 71045; 80053; 83735; 83880; 84484; 85025; 85055; 87637; 93005; 94640; 96374; 96375; 99285; A9270; C8929; G0378; J1650; J2405; J2919; Q9957

== ENCOUNTER 2024-10-11 09:54 | Outpatient (CLI) | payer BC, SELFPAY ==
--- NOTE | ~2024-10-11 | XR_ITS ---
Clinical Indication: Shortness of breath PA and lateral views of the chest: Comparison: 09/22/2024 Findings: The lungs are clear, without evidence of focal consolidation or pleural effusion. Cardiome diastinal silhouette is within normal limits. Stable calcified right paratracheal stripe lymph nodes. Bones and soft tissues are unremarkable. Impression: No acute abnormality. Reviewed, dictated and finalized at location . Impression: No acute abnormality.
--- OUTSIDE RECORDS SUMMARY | 2024-10-11 10:35 | XMS_ITS | Clinical Summary ---
Author Organization [facility] Address [address] [place] [address] Care Team Providers Care Ball Sorter Name Role Phone Obdulio Machuca MD Primary Care Provider [phone] Source Comments [facility],non-owned Affiliates and Associated Physician Practices is amultiple site organization consisting of ambulatory clinics and hospital sitesin [place], [place], [place] and [place]. This disclosure is being madepursuant to the Care Everywhere program and may not contain all information available regarding this patient. Last updated 18.[facility] Allergies Active Allergy Reactions Criticality Noted Date [...] Comments Blood Pressure 145/75 09/03/2021 12:47 PM MED SPECIALIST Pulse 85 09/03/2021 12:47 PM MED SPECIALIST Temperature 36.4 C (97.5 F) 09/03/2021 12:47 PM MED SPECIALIST Respiratory Rate 16 09/13/2020 3:56 PM MED SPECIALIST Oxygen Saturation 96% 09/03/2021 12:47 PM MED SPECIALIST Inhaled Oxygen Concentration - - Weight 78.9 kg (174 lb) 09/03/2021 12:47 PM MED SPECIALIST Height 165.1 cm (5' 5 ) 09/03/2021 12:47 PM MED SPECIALIST Body Mass Index 28.96 09/03/2021 12:47 PM MED SPECIALIST Plan of Treatment Health Maintenance Due Date [...] - 2023-2 5 season) 2024 01/31/2021, 01/09/2021 DEPRESSION SCREENING 07/04/2024 SCREENING FOR DIABETES 10/01/2024 10/01/2021 INFLUENZA VACCINE (Season Ended) 2025 HEPATITIS B VACCINE Aged Out No longe [...] Management General On track( 022 12:53 PM MED SPECIALIST) Carol Mora, RN Note: Expected end date: [...] approximately 13% higher for people identified as -Brazilian. eGFR by MDRD 65 > OR = [...] 29 U/L [facility] Comment: Test Performed at: [facility] [id number] [place] [id number] GUSTAVO MONTERROSO DO,MPH Blood BLOOD SPECIMEN / Unknown 10/01/2021 7:56 AM CDT 10/01/2021 7:57 AM CDT Jon Olson MD LAB - CHEMISTRY [facility] [address] [place] [address] from Last 3 Months or Most Recently Relevant to Health Maintenance Care Teams Ball Sorter Relationship Specialty Start Date End Date Obdulio Machuca MD [address] [place] [address] PCP - General 04/10/21
--- OUTSIDE RECORDS SUMMARY | 2024-10-11 10:35 | XMS_ITS | Continuity of Care Document ---
Author Organization [facility] Address [address] [place] [address] [place] [address] Phone Care Team Providers Care Presser Machine Name Role Phone Mercado OD, Brian Unavailable [...] Diagnoses Date Provider Providers Copied on Encounter [facility], [address] [place] [address] [address], [place], [place], [id number], [place] tel:[phone] [facility] No Information 6-200 9 Mercado OD Brian. [facility] [address], [place], [address], [place]. tel:[phone] Referring Provider: Vaughn Garza OD [facility] [address], [place], [address]. tel:[phone] [facility], [address] [place] [address] [address], [place], [place], [id number], tel:[phone] [facility] No Information Dec-2 3-200 8 Mercado OD Brian. [facility] [address], [place], [place], [facility], . tel:[phone] Referring Provider: Brian Mercado OD A, [facility] [address], [place], [facility]. tel:[phone] [facility], [address] [place] [address] [address], [place], [place], [id number], tel:[phone] [facility] No Information Meek-2 5-200 8 Mercado OD Brian. [address] [place], [place] [address], [place], [facility], [place]. tel:[phone] Referring Provider: Brian Mercado OD A, [facility] [address], [place], [facility]. tel:[phone] [facility], [address] [place] [address] [address], [place], [place], [id number], tel:[phone] [facility] No Information Sep-2 6-200 8 Mercado OD Brian. [address] [place], [place] [address]ate Center , [address], [place], [facility], [place]. tel:[phone] Referring Provider: Brian Mercado OD A, [facility] [address], [place], [facility]. tel:[phone] [facility], [address] [place] [address] [address], [place], [place], [id number], tel:[phone] [facility] No Information Jack-3 0-200 8 Mercado OD Brian. [address] [place], [place] [address], [place], [facility], [place]. tel:[phone] Referring Provider: Brian Mercado OD A, [facility] [address], [place], [facility]. tel:[phone] [facility], [address], [place], [place], [id number], [place] tel:[phone] [facility] No Information 6-200 8 Mercado OD Brian. [facility] , [address], [place], [address], [place]. tel:[phone] Referring Provider: Brian Sanders, [facility] [address], [place], [facility]. tel:[phone] [facility], [address], [place], [place], [id number], [place] tel:[phone] [facility] No Information 0 9-200 8 Mercado OD Brian. [address] [place], [place] [address]ate Center , [address], [place], [address], [place]. tel:[phone] Referring Provider: Brian Sanders, [facility] [address], [place], [facility]. tel:[phone] [facility], [address] [place] [address] [address], [place], [place], [id number], [place] tel:[phone] [facility] No Information 0 2-200 8 Mercado OD Brian. [address] [place], [place] [address], [address], [place], [address], [place]. tel:[phone] Referring Provider: Brian Sanders, [facility] [address], [place], [facility]. tel:[phone] [facility], [address], [place], [place], [id number], [place] tel:[phone] SEC [facility] No Information Jun-2 8-200 7 Basilio Robson. [address] [place] [address], [address], [place], [place], [id number], [place]. tel:[phone] Referring Provider: Brian Mercado OD A, [facility] [address], [place], [address]. tel:[phone] [facility], [address], [place], [place], [id number], tel:[phone] [facility] No Information Oct-3 0-200 7 Mercado ALYSSA Torres. [address], [address], [place], [address], . tel:[phone] Referring Provider: Robson Sanders, [address], [place], [address] . tel:[phone] [facility], [address], [place], [place], [id number], tel:[phone] SEC [facility] No Information Oct-2 3-200 7 [facility] . [address] [place], [place], [id number], . tel:[phone] Referring Provider: Brian Sanders, [address], [place], [address]. tel:[phone] Family History Family Member Type Diagnosis Age At Onset No Information Payers Payer name Insurance type Covered libertarian ID Authoriza tion(s) No Information Social History [...]
--- OUTSIDE RECORDS SUMMARY | 2024-10-11 10:35 | XMS_ITS | Clinical Summary ---
Author Organization [facility] Address [address] [address] Phone Care Team Providers Care Airconditioning Engineer Name Role Phone Deborah Cleary MD Primary Care Provider Social History Tobacco Use Types Packs/Day Years Used Date Smoking Tobacco: Never Assessed Comments Unknown Sex and Gender Information Value Date Recorded Sex Assigned at Not on file Legal Sex Female 12:54 PM CDT Gender Identity Not on file Sexual Orientation Not on file Plan of Treatment Health Maintenance Due Date Last Done Comments Hepatitis C Virus (HCV) Screening 1960 TdaP Immunization 1960 Pap Smear 02/04/1981 Cervical Cancer Screening (CCS) 02/04/1990 HPV/Cotest 02/04/1990 Cologuard 02/04/2010 Immunochemical Fecal Occult Blood 02/04/2010 Mammogram 02/04/2010 Pneumococcal Immunization (5 0+ years) (1 of 1 - PCV) 02/04/2010 Zoster Immunization (1 of 2) 02/04/2010 Influenza Immunization (#1) 2024 SARS-COV-2 Immunization ( season) 2024 01/09/2021 Colonoscopy 08/14/2028 08/14/2018 Colorectal Cancer Screening 08/14/2028 Respiratory Syncytial Virus (RSV) Immunization (Adult) (1 - 1-dose 75+ series) 02/04/2035 08/14/2018 Hepatitis B Immunization Aged Out No longer eligible based on patient's age to complete this topic Meningococcal Immunization (ACWY) Aged Out No longer eligible based on patient's age to complete this topic Pneumococcal Immunization Combined Aged Out No longer eligible based on patient's age to complete this topic Rotavirus Immunization Aged Out No lo nger eligible based on patient's age to complete this topic Procedures Procedure Name Priority Date/Time Associated Diagnosis Comments COLONOSCOPY Routine 08/14/2018 from Last 3 Months or Most Recently Relevant to Health Maintenance Results * COLONOSCOPY (08/14/2018) Brian Spicer DO PROCEDURE/MINOR SURGICAL ORDERA BLES Final Result from Last 3 Months or Most Recently Relevant to Health Maintenance Care Teams Airconditioning Engineer Relationship Specialty Start Date End Date Deborah Cleary MD PCP - General Family Medicine 05/03/18
== END 2024-10-11 09:55 | disposition home or self-care (01) ==
PROVIDERS: PCP Family Medicine
DX: J44.1 Chronic obstructive pulmonary disease with (acute) exacerbation (principal)
CPT/HCPCS: 71046